=== PATIENT | female | born 1995 | race Caucasian/White ===

== ENCOUNTER 2018-11-27 16:24 | Outpatient (REF) | payer OTHER, SELFPAY ==
--- NOTE | 2018-11-27 16:00 | PAPFT_PTH ---
PATIENT: Valeria Hess LOC: [facility] U#:[id number] AGE/SX: 23/F ROOM: RE11/27/[address]: Nedra Bunn APRN : 1995 BED: DIS: 11/27/2018 SPEC #: [id number] RECD: 11/27/18 18:43 STATUS: COSME REQ #: [id number] RUPESH: 11/27/18 16:[address]: Nedra Bunn DEPT: [facility] Cytology RECD BY: Mary Puentes Tissues: 1 - CX/ENDOCX FOR PAP SMEARS Procedures: PAP THIN PREP/UVM Screening Comments: [id number]
== END 2018-11-27 16:44 ==
LOC: LBN 16:24
PROVIDERS: PCP Nurse Practitioner Adult Health; Visit Provider Nurse Practitioner Adult Health
DX: Z12.4 Encounter for screening for malignant neoplasm of cervix (principal)
CPT/HCPCS: 88142

== ENCOUNTER 2019-05-25 23:11 | Emergency (ER) | payer OTHER, SELFPAY ==
[2019-05-25 23:15] VITALS: BP 125/74; PULSE 72; RESP 18; TEMP 36.7; O2SAT 100
--- NOTE | 2019-05-25 23:26 | W.ED.GENAD ---
Discharge Plan Disposition Patient Disposition: HOME Condition: Stable Discharge Details Chief Complaint: RashLesion Clinical Impression: Eczema Primary Care Provider: Nedra Bunn ED Provider: Abiodun Pollack Home Meds and New Rx's Prescriptions: New prednisone 20 mg tablet 60 mg PO DAILY 5 Days Qty: 15 RF: 0 Continued diphenhydramine HCl [Benadryl] 25 mg Capsule 50 mg PO PRN PRNRF: 0 Discharge Instructions Instructions: Eczema (ED) Additional Instructions: follow up as scheduled with your radiology technician on Tuesday if you have difficulty breathing, swallowing or abdominal pain/vomit return to the emergency department Medical Decision Making 23 yo female with hx of eczema comes in with itching rash on arms similar to prior eczema flares. She states she bought a new ugly [id number] sweater and this started to cause swelling and itching of the arms and face. She took benadryl and it helped but her eczema of her hands and arms continues to itch and spread. She has no warm skin to suggest cellulitis, clear lungs, no gi symptoms and no difficulty swallowing so doubt anaphylaxis. Given increased symptoms despite benadryl will start her on prednisone and she has f/u with derm on Tuesday. Return precautions given Differential Diagnosis Differential Diagnosis: eczema, allergic reaction HPI General Mode of arrival: ambulatory. Date/Time Provider Initiated Documentation: 05/25/19 23:12. Limitations to Documentation: no limitations. Information obtained by: patient. History of Present Illness 23 year old F presents to the emergency department with the chief complaint of rash, described as moderate, Patient started experiencing this day(s) (3) No relieving factors improve symptom(s), No exacerbating factors reported . Related Data Home Medications Medication Instructions Recorded Confirmed diphenhydramine HCl [Benadryl] 50 mg PO PRN PRN 05/25/19 05/25/19 prednisone 60 mg PO DAILY 5 Days #15 tab 05/25/19 Previous Rx's Medication Instructions Recorded prednisone 60 mg PO DAILY 5 Days #15 tab 05/25/19 Allergies Allergy/AdvReac Type Severity Reaction Status Date / Time shellfish derived Allergy Throat Unverified 05/25/19 23:21 Swlling, Itching General Stated Complaint: RashLesion LIBRA: 4 Review of Systems All systems reviewed & are unremarkable except as noted in HPI and below Constitutional Constitutional: Denies chills, Denies fever(s) and Denies weakness Cardiovascular Cardiovascular: Denies chest pain and Denies dyspnea Respiratory Respiratory: Denies cough and Denies dyspnea Gastrointestinal Gastrointestinal: Denies abdominal pain, Denies nausea and Denies vomiting Musculoskeletal Musculoskeletal: Denies joint swelling Neurologic Neurologic: Denies weakness [facility] Social History Smoking/Tobacco Use Status: Never Alcohol Intake: current Alcohol Intake frequency: a few times a month Alcohol type: wine Drug use: Never Substance use type: does not use Adopted: No Foster care: No Household members: none Housing: apartment Number of Children: 0 Communication Needs: None Education Level: college Details: BS, nursing 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, [employer] Sexually active: Yes Do you think of yourself as: straight/heterosexual Current gender identity: female What type of physical activity do you participate in: none Bella/Shinto: Faith Seatbelt use: always Drive intox or ride w/intox dedicated local truck driver: No Working smoke detector in home: Yes Fire extinguisher in home: Yes Carbon monox detector in home: Yes Do you feel safe at home: Yes Do you feel safe in your relationship?: Yes Female Reproductive History Menstrual Age of Menarche: 12 control method: none Exam Const General: no acute distress Orientation: alert HENMT Head: normal to inspection Ears: external ears normal General nose exam: external nose normal Mouth: moist mucous membranes Eyes General: appearance normal, both eyes and all related structures Neck Neck: normal visual inspection Resp Effort & Inspection: normal respiratory effort and able to speak in complete sentences Cardio Rate: regular rate Neuro General: alert and oriented x3 Extrem General: normal to inspection Psych Mental Status: mental status grossly normal Course Vital Signs Vital signs: Vital Signs Temperature 36.7 C 05/25/19 23:15 Pulse 72 05/25/19 23:15 Respiratory Rate 18 05/25/19 23:15 Blood Pressure 125/74 05/25/19 23:15 Pulse Oximetry 100 05/25/19 23:15 Temperature 36.7 C 05/25/19 23:15 Temperature Source Skin 05/25/19 23:15 Pulse 72 05/25/19 23:15 Respiratory Rate 18 05/25/19 23:15 Respiratory Effort Non-Labored 05/25/19 23:23 Blood Pressure 125/74 05/25/19 23:15 Pulse Oximetry 100 05/25/19 23:15 Oxygen Delivery Method Room Air 05/25/19 23:15 Oxygen Flow Rate 0 05/25/19 23:15 Pain Level 5 05/25/19 23:15
[2019-05-25] MEDS: predniSONE 20 MG TAB 60 MG PO (23:32)
== END 2019-05-25 23:35 | disposition home or self-care (01) ==
LOC: ER 23:30
PROVIDERS: Emergency Provider Emergency Medicine; PCP Nurse Practitioner Adult Health
DX: L25.9 Unspecified contact dermatitis, unspecified cause (principal)
CPT/HCPCS: 99283; J7512

== ENCOUNTER 2019-06-28 15:33 | Outpatient (CLI) | payer OTHER, SELFPAY ==
[2019-06-28 16:46] LABS: TSH (W/Ref FT4) 1.76 uIU/mL (0.36-3.74)
== END 2019-06-28 15:53 ==
PROVIDERS: PCP Nurse Practitioner Adult Health; Visit Provider Nurse Practitioner Adult Health
DX: F41.9 Anxiety disorder, unspecified (principal)
CPT/HCPCS: 36415; 84443

== ENCOUNTER 2019-12-27 01:02 | Emergency (ER) | payer OTHER, SELFPAY ==
[2019-12-27 01:10] VITALS: BP 121/72; PULSE 79; RESP 16; TEMP 36.6; O2SAT 99
--- NOTE | 2019-12-27 01:13 | ED.GENADUL_ITS ---
Discharge Plan Disposition Patient Disposition: HOME Condition: Good Discharge Details Chief Complaint: Nausea/Vomit/Diar Clinical Impression: Excessive vomiting during , Acute hypokalemia, Transaminitis Primary Care Provider: Nedra Bunn ED Provider: Sd [place] Home Meds and New Rx's Prescriptions: Continued prenat.vits,clarence,[id number] Tablet 1 tab PO DAILY RF: 0 hydroxyzine HCl 50 mg tablet 50 mg PO QHS Qty: 30 RF: 1 metoclopramide HCl [Reglan] 10 mg tablet 10 mg PO Q6H PRN (Reason: nausea and vomiting) Qty: 30 RF: 2 ondansetron 8 mg tablet,disintegrating 8 mg PO TID Qty: 24 RF: 5 promethazine 25 mg suppository 25 mg SD Q6H PRN (Reason: nausea and vomiting) Qty: 12 RF: 2 Discharge Instructions Instructions: Hyperemesis Gravidarum (ED), Hypokalemia (ED) Additional Instructions: At this time you have been rehydrated with 2 L of normal saline. Your potassium levels were low, at home please eat foods that are high in potassium like bananas and legumes. Please take the supplemental potassium as tolerable for the next 2 to 3 days. Your liver levels were elevated which is not totally normal. This is slightly concerning and does need to be followed up promptly. Please follow-up with Dr. [facility] in the [facility] at [facility] by his request. Please continue to take the Zofran as needed for nausea. Drink plenty of fluids. If you notice any worsening of your symptoms, or any new symptoms such as vomiting, diarrhea, fever, chills, shortness of breath, chest pain, numbness, weakness, or fainting , please return immediately to the emergency department for reevaluation. Please follow up with your primary care provider as soon as possible for reassessment and reevaluation. As always, it was a pleasure participating in your medical care today. Referrals: Mal Ramos MD [ [facility] STAFF PHYSICIAN] - Medical Decision Making 24-year-old female who is a G1, P0 currently 9 weeks presents today for evaluation of vomiting. Patient states that she has been vomiting throughout the day, she has been taking small sips of water every 15 minutes and taking Zofran and Reglan that was prescribed by her senior product development scientist. However in spite of this she is continued to have vomiting. Urine is notably dark. She denies any cramps or abdominal pain. She denies any vaginal discharge or discomfort. She has no other complaints at this time. She denies any other sick contacts, right upper quadrant pain, or other complaints. Physical exam demonstrates a nontender nonsurgical abdomen. Mucous membranes are dry. Signs and symptoms consistent with hyperemesis gravidarum. Did discuss risks and benefits of Zofran usage during this stage of , patient would like to proceed with continued Zofran use. We will rehydrate the patient with normal saline, evaluate for any significant electrolyte abnormality, monitor closely and reassess. 3:30 AM Patient's laboratory work-up has returned, white count normal, potassium slightly low at 3, renal function good. Of note patient's AST and ALT are elevated with mild transaminitis. We have sent an acute hepatitis panel. Lipase normal, urinalysis does show protein, ketones, moderate bilirubin. Patient does not seem to be of the current obstetrics duration group for help syndrome or eclampsia. Blood pressure notably normal, no blood cell abnormalities to speak of on labs. Patient is feeling much better after 2 L of normal saline and Zofran. Will do a p.o. trial. I did contact Dr. Ramos of OB, discussed the case with him in regards to the patient's transaminitis. He to feels that is slightly atypical, though the patient is notably nontoxic- appearing. At this time he does recommend close follow-up in the clinic later today. Do think this is reasonable. After p.o. trial if she succeeds with this will discharge home with close follow-up with Dr. Ramos in the a.m. 3:50 a.m. Patient tolerated p.o. trial very well. Will discharge home. Decided not to do oral potassium and stick with mainly a diet of foods high in potassium secondary to the irritation of the stomach that the oral potassium may cause. I have ex tensively reviewed the treatment plan and discharge instructions with the patient. I have addressed all patient concerns at this time. The patient was made aware of what symptoms to monitor for that would warrant a return to the emergency department. Discussed the plan with the patient, they demonstrate verbal understanding and agreement with our assessment and plan at this time. HPI General Date/Time Provider Initiated Documentation: 12/27/19 01:05 . HPI Narrative: 24-year-old female who is a G1, P0 currently 9 weeks presents today for evaluation of vomiting. Patient states that she has been vomiting throughout the day, she has been taking small sips of water every 15 minutes and taking Zofran and Reglan that was prescribed by her senior product development scientist. However in spite of this she is continued to have vomiting. Urine is notably dark. She denies any cramps or abdominal pain. She denies any vaginal discharge or discomfort. She has no other complaints at this time. She denies any other sick contacts, right upper quadrant pain, or other complaints. Related Data Home Medications Medication Instructions Recorded Confirmed hydroxyzine HCl 50 mg tablet 50 mg PO QHS #30 tab 11/27/19 12/27/19 prenat.vits,clarence,[id number] 1 tab PO DAILY 11/27/19 12/27/19 ondansetron 8 mg disintegrating 8 mg PO TID #24 tab 12/18/19 12/27/19 tablet metoclopramide HCl 10 mg tablet 10 mg PO Q6H PRN #30 tab 12/20/19 12/27/19 promethazine 25 mg rectal 25 mg SD Q6H PRN #12 each 12/26/19 12/27/19 suppository Previous Rx's Medication Instructions Recorded hydroxyzine HCl 50 mg tablet 50 mg PO QHS #30 tab 11/27/19 ondansetron 8 mg disintegrating 8 mg PO TID #24 tab 12/18/19 tablet metoclopramide HCl 10 mg tablet 10 mg PO Q6H PRN #30 tab 12/20/19 promethazine 25 mg rectal 25 mg SD Q6H PRN #12 each 12/26/19 suppository Allergies Allergy/AdvReac Type Severity Reaction Status Date / Time shellfish derived Allergy Throat Verified 12/20/19 10:14 Swlling, Itching diphenhydramine AdvReac Intermediate eczema Verified 12/20/19 10:14 [From Benadryl] acts up General LIBRA: 4 Review of Systems All systems reviewed & are unremarkable except as noted in HPI and below PFSH Medical History H/O eczema (Chronic) dishydrotic, periorbital Derm in [place] Sciatica (Resolved) Sleep disturbance (Acute) works night shifts Surgical History No significant past surgical history (Chronic) Family History Father , leukemia No problems noted. Mother Anxiety Arthritis Depression Hypertension Maternal Grandmother Arthritis Paternal Grandfather No problems noted. 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, [employer] Sexually active: Yes Do you think of yourself as: straight/heterosexual Current gender identity: female What type of physical activity do you participate in: none Bella/Faith: Jain Seatbelt use: always Drive intox or ride w/intox 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 3.ENT: Atraumatic external nose and ears. Dry MM. Neck: Symmetric, trachea midline, No thyromegaly. 4.CVS: +S1/S2, No murmurs or gallops. Peripheral pulses 2+ and equal in all extremities. Brisk capillary refill in all extremities. 5.RESP: Unlabored respiratory effort. Clear to auscultation bilaterally. No wheezes rales or rhonchi 6.GI: Soft, Nontender/Nondistended, No hepatosplenomegaly. No guarding or rebound. No pain at McBurney's point, negative Boo sign. 7.MSK: Normocephalic/Atraumatic, Extremities w/o deformity or ttp No cyanosis or clubbing, Normal movement of all extremities 8.Skin: Warm, Dry. No rashes or lesions. 9.Neuro: conventions assistant II-XII grossly intact. Sensation grossly intact, no focal neurologic deficits. 10.Psych: (AAO) x3. Appropriate mood and affect
[2019-12-27] MEDS: Ondansetron 4 MG/2 ML VIAL IVP (01:34)
[2019-12-27] MEDS: Normal Saline 1,000 ML 1000 ML IV ×2 (01:35→01:55)
[2019-12-27 01:36] LABS: Abs Immature Grans 0.01 k/cumm (0.0-0.09); Absolute Basophil Count 0.01 k/cumm (0.0-0.2); Absolute Eosinophil Count 0.05 k/cumm (0.0-0.7); Absolute Lymphocyte Count 2.07 k/cumm (1.2-3.4); Absolute Monocyte Count 0.75 k/cumm (0.11-0.7); Absolute Neutrophil Count 6.33 k/cumm (1.2-6.7); Basophils % 0.1; Eosinophils % 0.5; HCT 43.1 % (36.0-46.0); HGB 14.6 g/dL (12.0-15.5); Immature Grans % 0.1 %; Lymphocytes % 22.5; Mean Corp. HGB Concentration 33.9 g/dL (32.0-36.0); Mean Corpuscular Hemoglobin 28.2 pg (27.0-33.0); Mean Corpuscular Volume 83.4 fL (80-95); Mean Platelet Volume 10.3 fL (8.0-11.0); Monocytes % 8.1; Neutrophils % 68.7; Platelet Count 297 x1000/uL (130-400); RBC 5.17 m/cumm (4.00-5.20); RBC Distribution Width 13.2 % (11.7-14.6); White Blood Cell Count 9.22 k/cumm (4.4-10.8)
[2019-12-27 01:49] LABS: ALT 186 U/L (14-59); AST 66 U/L (15-37); Albumin 3.7 g/dL (3.4-5.0); Alkaline Phosphatase 52 U/L (46-116); Anion Gap 13.9 mmol/L (3-11); BUN 7 mg/dL (7-18); CO2 22.1 mmol/L (21.0-32.0); Calcium 8.9 mg/dL (8.5-10.1); Chloride 100 mmol/L (98-107); Glucose 92 mg/dL (74-106); Lipase 189 U/L (73-393); Sodium 136 mmol/L (136-145); Total Protein 7.5 g/dL (6.4-8.2)
[2019-12-27] MEDS: POTASSIUM CHLORIDE 20 MEQ/100 ML BAG 50 MEQ IVPB (02:19)
[2019-12-27 02:24] LABS: Bilirubin Moderate (Negative); Blood Trace-intact (Negative); Clarity Cloudy (Clear); Glucose Negative (Negative); Ketones >=160 mg/dL (Negative); Leukocyte Esterase Negative (Negative); Nitrite Negative (Negative); Specific Gravity >= 1.030 (1.005-1.025)
[2019-12-27 02:29] LABS: Bacteria Many HPF (Negative); C & S Indicated? No/Sq. Contamination; Casts Negative LPF (Negative); Crystals Negative HPF (Negative); Epithelial Cells Many HPF (Negative); Mucus Negative (Negative); RBC 0-2 HPF (0-2); WBC Negative HPF (0-5)
--- NOTE | 2019-12-27 03:14 | NUR.NOTE ---
Nursing Note: [facility]
[2019-12-27 03:53] VITALS: BP 112/61; PULSE 76; RESP 16; O2SAT 98
[2019-12-28 09:32] LABS: Hepatitis A Antibody IgM Negative (Negative); Hepatitis B Core Antibody Negative (Negative); Hepatitis B surface Ag Negative (Negative); Hepatitis C Ab w Rflx HCV PCR Negative (Negative)
== END 2019-12-27 05:31 | disposition home or self-care (01) ==
PROVIDERS: Emergency Provider Student in an Organized Health Care Education/Training Program; PCP Nurse Practitioner Adult Health
DX: O21.1 Hyperemesis gravidarum with metabolic disturbance (principal); O26.611 Liver and biliary tract disorders in pregnancy, first trimester; R74.0 Nonspecific elevation of levels of transaminase and lactic acid dehydrogenase [LDH]; E87.6 Hypokalemia; Z3A.09 9 weeks gestation of pregnancy
CPT/HCPCS: 36415; 80053; 83690; 86704; 86709; 86803; 87340; 96361; 96365; 96366; 96375; 99284; 81003; 81015; 85025; J2405; J3480

== ENCOUNTER 2019-12-27 14:04 | Observation (INO) | payer OTHER, SELFPAY ==
[2019-12-27 14:49] LABS: Abs Immature Grans 0.02 k/cumm (0.0-0.09); Absolute Basophil Count 0.01 k/cumm (0.0-0.2); Absolute Eosinophil Count 0.01 k/cumm (0.0-0.7); Absolute Lymphocyte Count 1.49 k/cumm (1.2-3.4); Absolute Monocyte Count 0.57 k/cumm (0.11-0.7); Absolute Neutrophil Count 6.98 k/cumm (1.2-6.7); Basophils % 0.1; Eosinophils % 0.1; HCT 40.9 % (36.0-46.0); HGB 13.6 g/dL (12.0-15.5); Immature Grans % 0.2 %; Lymphocytes % 16.4; Mean Corp. HGB Concentration 33.3 g/dL (32.0-36.0); Mean Corpuscular Volume 84.2 fL (80-95); Mean Platelet Volume 10.6 fL (8.0-11.0); Monocytes % 6.3; Neutrophils % 76.9; Platelet Count 247 x1000/uL (130-400); RBC 4.86 m/cumm (4.00-5.20); White Blood Cell Count 9.08 k/cumm (4.4-10.8)
[2019-12-27] MEDS: DEXTROSE 5%-LACTATED RINGERS 1,000 ML 999 ML IV (15:00)
--- NOTE | 2019-12-27 15:02 | W.PM.HP.N ---
Date of service: 12/27/19 Time of Service: 15:02 Assessment and Plan Assessment and plan (1) Hyperemesis gravidarum: Status: Acute (2) Elevated liver enzymes: Status: Acute (3) Hypokalemia: Status: Acute Assessment and plan: Will place on observation on FBC and arrange for IV rehydration with D5LR. Will repeat laboratory studies today. IV antiemetics with phenergan and zofran. If improved this afternoon will consider discharge home. History of Present Illness History of Present Illness Chief Complaint: Hyperemesis gravidarum Narrative: 24 y/o at 9 weeks presented to the clinic following evaluation in the emergency department last evening for persistent nausea and vomiting with inability to tolerate PO. She was found to be hypokalemic and had mildly elevated liver enzymes. 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, [employer] Sexually active: Yes Do you think of yourself as: straight/heterosexual Current gender identity: female What type of physical activity do you participate in: none Bella/Episcopal: Roman Catholic Seatbelt use: always Drive intox or ride w/intox car pick up driver: No Working smoke detector in home: Yes Fire extinguisher in home: Yes Carbon monox detector in home: Yes Do you feel safe at home: Yes Do you feel safe in your relationship?: Yes Female Reproductive History Menstrual Age of Menarche: 12 control method: none Meds Home Medications and Allergies Home Medications Medication Instructions Recorded Confirmed Type hydroxyzine HCl 50 mg tablet 50 mg PO QHS #30 tab 11/27/19 12/27/19 Rx prenat.vits,clarence,[id number] 1 tab PO DAILY 11/27/19 12/27/19 History ondansetron 8 mg disintegrating 8 mg PO TID #24 tab 12/18/19 12/27/19 Rx tablet promethazine 25 mg rectal 25 mg DE Q6H PRN #12 each 12/26/19 12/27/19 Rx suppository Allergies Allergy/AdvReac Type Severity Reaction Status Date / Time shellfish derived Allergy Throat Verified 12/20/19 10:14 Swlling, Itching diphenhydramine AdvReac Intermediate eczema Verified 12/20/19 10:14 [From Benadryl] acts up cocamidopropyl betaine AdvReac Skin Rash Verified 12/27/19 13:45 Results Labs Result diagrams: 12/27/19 14:36 12/27/19 14:36 Labs: Laboratory Results - last 24 hr 12/27/19 14:36 WBC 9.08 RBC 4.86 Hgb 13.6 Hct 40.9 MCV 84.2 MCH 28.0 MCHC 33.3 RDW 13.0 Plt Count 247 MPV 10.6 Immature Gran % 0.2 Neutrophils % 76.9 Lymphocytes % 16.4 Monocytes % 6.3 Eosinophils % 0.1 Basophils % 0.1 Absolute Neutrophils 6.98 H Absolute Lymphocytes 1.49 Absolute Monocytes 0.57 Absolute Eosinophils 0.01 Absolute Basophils 0.01 COVID-19 Screening Have you,or household,traveled outside [place] in last 14 days?: No
[2019-12-27] MEDS: DEXTROSE 5%-LACTATED RINGERS 1,000 ML 150 ML IV ×2 (15:28→23:03)
[2019-12-27] MEDS: Ondansetron 4 MG/2 ML VIAL IVP ×2 (15:28→20:30)
[2019-12-27] MEDS: Normal Saline Flush 10 ML SYR IVP ×3 (15:28→20:31)
[2019-12-27 15:40] LABS: ALT 146 U/L (14-59); AST 49 U/L (15-37); Albumin 3.2 g/dL (3.4-5.0); Alkaline Phosphatase 44 U/L (46-116); Anion Gap 13.9 mmol/L (3-11); BUN 4 mg/dL (7-18); Bilirubin, Total 0.8 mg/dL (0.2-1.0); CO2 19.1 mmol/L (21.0-32.0); CREATININE 0.63 mg/dL (0.55-1.02); Calcium 8.4 mg/dL (8.5-10.1); Chloride 102 mmol/L (98-107); Glucose 83 mg/dL (74-106); Potassium 3.4 mmol/L (3.5-5.1); Sodium 135 mmol/L (136-145); Total Protein 6.5 g/dL (6.4-8.2)
[2019-12-27] MEDS: Dexamethasone 4 MG/ML VIAL 8 MG IVP (18:52)
[2019-12-28] MEDS: Normal Saline Flush 10 ML SYR IVP ×3 (03:24→20:51)
[2019-12-28] MEDS: Ondansetron 4 MG/2 ML VIAL IVP ×2 (03:24→20:50)
[2019-12-28 07:49] LABS: Abs Immature Grans 0.01 k/cumm (0.0-0.09); Absolute Lymphocyte Count 1.17 k/cumm (1.2-3.4); Absolute Monocyte Count 0.52 k/cumm (0.11-0.7); Absolute Neutrophil Count 8.05 k/cumm (1.2-6.7); HCT 37.3 % (36.0-46.0); HGB 12.5 g/dL (12.0-15.5); Immature Grans % 0.1 %; Mean Corp. HGB Concentration 33.5 g/dL (32.0-36.0); Mean Corpuscular Hemoglobin 28.2 pg (27.0-33.0); Mean Platelet Volume 10.3 fL (8.0-11.0); Monocytes % 5.3; Neutrophils % 82.6; Platelet Count 252 x1000/uL (130-400); RBC 4.44 m/cumm (4.00-5.20); RBC Distribution Width 13.1 % (11.7-14.6); White Blood Cell Count 9.75 k/cumm (4.4-10.8)
[2019-12-28 08:08] LABS: ALT 127 U/L (14-59); AST 41 U/L (15-37); Albumin 2.8 g/dL (3.4-5.0); Alkaline Phosphatase 41 U/L (46-116); Anion Gap 10.4 mmol/L (3-11); BUN 2 mg/dL (7-18); Bilirubin, Total 0.6 mg/dL (0.2-1.0); CO2 22.6 mmol/L (21.0-32.0); CREATININE 0.64 mg/dL (0.55-1.02); Calcium 8.5 mg/dL (8.5-10.1); Chloride 104 mmol/L (98-107); Glucose 128 mg/dL (74-106); Potassium 3.5 mmol/L (3.5-5.1); Sodium 137 mmol/L (136-145)
[2019-12-28] MEDS: Pantoprazole 40 MG VIAL IVP (11:12)
[2019-12-28] MEDS: DEXTROSE 5%-LACTATED RINGERS 1,000 ML 150 ML IV ×2 (12:09→19:03)
[2019-12-28 15:50] VITALS: BP 107/70; PULSE 66; RESP 16; TEMP 36.6; O2SAT 99
[2019-12-28] MEDS: MAGNESIUM SULFATE 8.12 MEQ, MULTIVITAMIN 10 ML, THIAMINE 100 MG, FOLIC ACID 1 MG in Nor... 168.867 MG IV (21:25)
[2019-12-28] MEDS: methylPREDNISolone SUCC 40 MG VIAL 16 MG IVP (22:09)
[2019-12-29] MEDS: methylPREDNISolone SUCC 40 MG VIAL 16 MG IVP ×3 (06:12→22:14)
[2019-12-29] MEDS: Normal Saline Flush 10 ML SYR IVP ×5 (07:32→22:15)
[2019-12-29 07:35] VITALS: BP 116/75; PULSE 71; RESP 20; TEMP 36.8; O2SAT 97
[2019-12-29 07:42] LABS: Abs Immature Grans 0.01 k/cumm (0.0-0.09); Absolute Lymphocyte Count 1.13 k/cumm (1.2-3.4); Absolute Monocyte Count 0.49 k/cumm (0.11-0.7); HCT 36.8 % (36.0-46.0); HGB 12.1 g/dL (12.0-15.5); Immature Grans % 0.1 %; Lymphocytes % 13.1; Mean Corp. HGB Concentration 32.9 g/dL (32.0-36.0); Mean Corpuscular Hemoglobin 27.9 pg (27.0-33.0); Mean Corpuscular Volume 84.8 fL (80-95); Mean Platelet Volume 10.2 fL (8.0-11.0); Monocytes % 5.7; Neutrophils % 81.1; Platelet Count 226 x1000/uL (130-400); RBC 4.34 m/cumm (4.00-5.20); RBC Distribution Width 13.2 % (11.7-14.6); White Blood Cell Count 8.63 k/cumm (4.4-10.8)
[2019-12-29] MEDS: Pantoprazole 40 MG VIAL IVP (08:14)
[2019-12-29 08:20] LABS: ALT 155 U/L (14-59); AST 78 U/L (15-37); Albumin 2.8 g/dL (3.4-5.0); Alkaline Phosphatase 41 U/L (46-116); Anion Gap 11.2 mmol/L (3-11); BUN 3 mg/dL (7-18); Bilirubin, Total 0.4 mg/dL (0.2-1.0); CO2 19.8 mmol/L (21.0-32.0); Calcium 8.1 mg/dL (8.5-10.1); Chloride 107 mmol/L (98-107); Folate 18.8 ng/mL (8.6-20.0); Glucose 122 mg/dL (74-106); Potassium 3.5 mmol/L (3.5-5.1); Sodium 138 mmol/L (136-145); Total Protein 5.9 g/dL (6.4-8.2); Vitamin B12 611 pg/mL (193-986)
[2019-12-29] MEDS: DEXTROSE 5%-LACTATED RINGERS 1,000 ML 150 ML IV ×2 (11:01→17:26)
[2019-12-29 11:33] LABS: COVID-19 RT-PCR UVMMC Result Negative (Negative)
[2019-12-29 15:15] VITALS: BP 118/75; PULSE 63; RESP 20; TEMP 36.7; O2SAT 98
[2019-12-29 17:25] LABS: Bilirubin Negative (Negative); Blood Trace-intact (Negative); Clarity Clear (Clear); Glucose Negative (Negative); Ketones Negative (Negative); Leukocyte Esterase Negative (Negative); Nitrite Negative (Negative); Specific Gravity 1.025 (1.005-1.025); Urobilinogen 0.2 EU/dL (Up TO 0.2); pH 7.5 (5-8)
[2019-12-29 17:32] LABS: Epithelial Cells Few HPF (Negative); RBC 0-2 HPF (0-2); WBC 0-2 HPF (0-5)
[2019-12-29 17:33] LABS: Bacteria Moderate HPF (Negative); C & S Indicated? Yes; Crystals Negative HPF (Negative); Mucus Trace (Negative)
[2019-12-29 20:05] VITALS: BP 116/75; PULSE 86; RESP 18; TEMP 36.6; O2SAT 97
[2019-12-30] MEDS: methylPREDNISolone SUCC 40 MG VIAL 16 MG IVP ×2 (06:19→14:06)
[2019-12-30] MEDS: Normal Saline Flush 10 ML SYR IVP ×4 (06:20→14:07)
[2019-12-30] MEDS: DEXTROSE 5%-LACTATED RINGERS 1,000 ML 150 ML IV (07:55)
[2019-12-30] MEDS: Pantoprazole 40 MG VIAL IVP (09:53)
[2019-12-30 10:22] LABS: ALT 128 U/L (14-59); AST 27 U/L (15-37); Albumin 3.2 g/dL (3.4-5.0); Alkaline Phosphatase 41 U/L (46-116); Anion Gap 8.7 mmol/L (3-11); BUN 3 mg/dL (7-18); Bilirubin, Total 0.3 mg/dL (0.2-1.0); CO2 23.3 mmol/L (21.0-32.0); CREATININE 0.65 mg/dL (0.55-1.02); Calcium 8.5 mg/dL (8.5-10.1); Chloride 105 mmol/L (98-107); Glucose 113 mg/dL (74-106); Potassium 3.7 mmol/L (3.5-5.1); Sodium 137 mmol/L (136-145); Total Protein 6.7 g/dL (6.4-8.2)
[2019-12-30] MEDS: Ondansetron 4 MG/2 ML VIAL IVP (11:38)
--- NOTE | 2019-12-30 13:55 | PGE_ITS ---
Date of Service Date of service: 12/30/19 Time of Service: 13:56 Assessment and Plan Assessment and plan (1) Hyperemesis gravidarum: Status: Acute Assessment and plan: Plan for discharge home with oral steroid taper. Follow up in the clinic in 2-3 days. Subjective Subjective Interval history since last seen: Patient did well over the last 24 hours with relation to her nausea and vomiting and responded well to solu-medrol. She has been able to tolerate meals over the last day and with the exception of some nausea and a single episode of emesis this morning. Objective Objective Clinical Data: Abnormal lab results 12/29/19 12/30/19 Range/Units 16:45 10:00 BUN 3 L (7-18) mg/dL Glucose 113 H (74-106) mg/dL ALT 128 H (14-59) U/L Alkaline Phosphatase 41 L (46-116) U/L Albumin 3.2 L (3.4-5.0) g/dL Urine Blood Trace-intact H (Negative) Vital Signs Temperature 97.9 F 12/29/19 20:05 Temperature Source Tympanic 12/29/19 20:05 Pulse 86 12/29/19 20:05 Pulse Rhythm Regular 12/29/19 20:57 Respiratory Rate 18 12/29/19 20:05 Respiratory Effort 12/29/19 20:57 Respiratory Depth Normal 12/29/19 20:57 Respiratory Pattern Normal 12/29/19 20:57 Blood Pressure 116/75 12/29/19 20:05 Pulse Oximetry 97 12/29/19 20:05 Oxygen Delivery Method Room Air 12/29/19 20:05 Oxygen Flow Rate 0 12/29/19 20:05 Pain Level 0 12/30/19 11:38 Comment 12/28/19 15:50 Intake & Output 12/29/19 12/30/19 12/30/19 23:59 11:59 23:59 Intake Total 962.5 / 1962.5 3676.5 / 3676.5 Output Total 2300 / 3300 5550 / 5550 Balance -1337.5 / -1337.5 -1873.5 / -1873.5 Intake: IV 962.5 / 1962.5 2676.5 / 2676.5 Oral 1000 / 1000 Output: Urine 2300 / 3300 5400 / 5400 Emesis 150 / 150 Other: Urine Color Pale Yellow Urine Appearance Clear Clear Urine Odor None None Emesis Description Clear/Water Voiding Methods Toilet Toilet Laboratory Results WBC 8.63 k/cumm (4.4-10.8) 12/29/19 07:30 RBC 4.34 m/cumm (4.00-5.20) 12/29/19 07:30 Hgb 12.1 g/dL (12.0-15.5) 12/29/19 07:30 Hct 36.8 % (36.0-46.0) 12/29/19 07:30 MCV 84.8 fL (80-95) 12/29/19 07:30 MCH 27.9 pg (27.0-33.0) 12/29/19 07:30 MCHC 32.9 g/dL (32.0-36.0) 12/29/19 07:30 RDW 13.2 % (11.7-14.6) 12/29/19 07:30 Plt Count 226 x1000/uL (130-400) 12/29/19 07:30 MPV 10.2 fL (8.0-11.0) 12/29/19 07:30 Immature Gran % 0.1 % 12/29/19 07: Neutrophils % 81.1 12/29/19 07:30 Lymphocytes % 13.1 12/29/19 07:30 Monocytes % 5.7 12/29/19 07:30 Eosinophils % 0.0 12/29/19 07:30 Basophils % 0.0 12/29/19 07:30 Absolute Neutrophils 7.00 k/cumm (1.2-6.7) H 12/29/19 07:30 Absolute Lymphocytes 1.13 k/cumm (1.2-3.4) L 12/29/19 07:30 Absolute Monocytes 0.49 k/cumm (0.11-0.7) 12/29/19 07:30 Absolute Eosinophils 0.00 k/cumm (0.0-0.7) 12/29/19 07:30 Absolute Basophils 0.00 k/cumm (0.0-0.2) 12/29/19 07:30 Sodium 137 mmol/L (136-145) 12/30/19 10:00 Potassium 3.7 mmol/L (3.5-5.1) 12/30/19 10:00 Chloride 105 mmol/L (98-107) 12/30/19 10:00 Carbon Dioxide 23.3 mmol/L (21.0-32.0) 12/30/19 10:00 Anion Gap 8.7 mmol/L (3-11) 12/30/19 10:00 BUN 3 mg/dL (7-18) L 12/30/19 10:00 Creatinine 0.65 mg/dL (0.55-1.02) 12/30/19 10:00 Estimated GFR/1.73 m2 >= 60.00 (mL/min/1.73m2) 12/30/19 10:00 Glucose 113 mg/dL (74-106) H 12/30/19 10:00 Calcium 8.5 mg/dL (8.5-10.1) 12/30/19 10:00 Total Bilirubin 0.3 mg/dL (0.2-1.0) 12/30/19 10:00 AST 27 U/L (15-37) 12/30/19 10:00 ALT 128 U/L (14-59) H 12/30/19 10:00 Alkaline Phosphatase 41 U/L (46-116) L 12/30/19 10:00 Total Protein 6.7 g/dL (6.4-8.2) 12/30/19 10:00 Albumin 3.2 g/dL (3.4-5.0) L 12/30/19 10:00 Vitamin B12 611 pg/mL (193-986) 12/29/19 07:30 Folate 18.8 ng/mL (8.6-20.0) 12/29/19 07:30 Urine Color Yellow (Yellow) 12/29/19 16:45 Urine Clarity Clear (Clear) 12/29/19 16:45 Urine pH 7.5 (5-8) 12/29/19 16:45 Ur Specific [place] 1.025 (1.005-1.025) 12/29/19 16:45 Urine Protein Negative mg/dL (Negative) 12/29/19 16:45 Urine Ketones Negative mg/dL (Negative) 12/29/19 16:45 Urine Blood Trace-intact (Negative) H 12/29/19 16:45 Urine Nitrite Negative (Negative) 12/29/19 16:45 Urine Bilirubin Negative (Negative) 12/29/19 16:45 Urine Urobilinogen 0.2 EU/dL (Up TO 0.2) 12/29/19 16:45 Ur Leukocyte Esterase Negative (Negative) 12/29/19 16:45 Urine RBC 0-2 HPF (0-2) 12/29/19 16:45 Urine WBC 0-2 HPF (0-5) 12/29/19 16:45 Ur Epithelial Cells Few HPF (Negative) 12/29/19 16:45 Urine Crystals Negative HPF (Negative) 12/29/19 16:45 Urine Bacteria Moderate HPF (Negative) 12/29/19 16:45 Urine Mucus Trace (Negative) 12/29/19 16:45 Ur Culture Indicated? Yes 12/29/19 16:45 Urine Glucose Negative mg/dL (Negative) 12/29/19 16:45 COVID-19 PCR Negative (Negative) 12/28/19 17:00 Nasopharyn COVID-19 PCR Not Applicable 12/28/19 17:00 Ref Test [facility] 12/28/19 17:00
[2019-12-31 11:37] LABS: Prealbumin 14 mg/dL (20-40); Transferrin 155 mg/dL (201-352)
== END 2019-12-30 14:55 | disposition home or self-care (01) ==
PROVIDERS: Admitting Provider Obstetrics & Gynecology; PCP Nurse Practitioner Adult Health; Visit Provider Obstetrics & Gynecology
DX: O21.0 Mild hyperemesis gravidarum (principal); R74.8 Abnormal levels of other serum enzymes; E87.6 Hypokalemia; Z3A.09 9 weeks gestation of pregnancy
CPT/HCPCS: 36410; 36415; 80053; 96360; 96361; 96365; 99223; 99233; U0003; 81003; 81015; 82607; 82746; 84134; 84466; 85025; 87086; G0378; J1100; J2405

== ENCOUNTER 2020-01-03 14:54 | Outpatient (RCR) | payer OTHER, SELFPAY ==
[2020-01-03 16:28] LABS: ALT 50 U/L (14-59); AST 13 U/L (15-37); Albumin 3.3 g/dL (3.4-5.0); Alkaline Phosphatase 33 U/L (46-116); Anion Gap 11.8 mmol/L (3-11); BUN 10 mg/dL (7-18); Bilirubin, Total 0.2 mg/dL (0.2-1.0); CO2 21.2 mmol/L (21.0-32.0); CREATININE 0.73 mg/dL (0.55-1.02); Calcium 8.6 mg/dL (8.5-10.1); Chloride 101 mmol/L (98-107); Glucose 132 mg/dL (74-106); Potassium 3.6 mmol/L (3.5-5.1); Sodium 134 mmol/L (136-145); Total Protein 6.9 g/dL (6.4-8.2)
== END 2020-01-04 23:59 | disposition home or self-care (01) ==
LOC: INF 14:54
PROVIDERS: PCP Nurse Practitioner Adult Health; Visit Provider Obstetrics & Gynecology
DX: Z45.2 Encounter for adjustment and management of vascular access device (principal)
CPT/HCPCS: 80053

== ENCOUNTER 2020-01-08 11:58 | Outpatient (RCR) | payer OTHER, SELFPAY | END 2020-02-04 23:59 | disposition home or self-care (01) | LOC: INF 11:58 | PROVIDERS: PCP Nurse Practitioner Adult Health; Visit Provider Obstetrics & Gynecology | DX: Z34.91 Encounter for supervision of normal pregnancy, unspecified, first trimester (principal); Z45.2 Encounter for adjustment and management of vascular access device; Z3A.11 11 weeks gestation of pregnancy | CPT/HCPCS: 36592 ==

== ENCOUNTER 2020-01-08 12:20 | Outpatient (REF) | payer OTHER, SELFPAY ==
[2020-01-08 13:02] LABS: Abs Immature Grans 0.05 10^3/uL (0.0-0.06); Absolute Basophil Count 0.02 10^3/uL (0.0-0.2); Basophils % 0.1; Eosinophils % 0.7; HCT 38.1 % (36.0-46.0); HGB 12.3 g/dL (11.2-15.7); Immature Grans % 0.3; Lymphocytes % 17.1; MCH 27.9 pg (27.0-33.0); MCHC 32.3 % (32.0-36.0); MCV 86.4 fL (80-95); MPV 10.6 fL (8.0-11.0); Monocytes % 6.6; Neutrophils % 75.2; Nucleated RBC 0 %; Platelet Count 258 10^3/uL (130-400); RBC 4.41 10^6/uL (3.93-5.22); RDW 13.2 % (11.7-14.6); RDW-SD 41.5 fL; WBC 15.22 10^3/uL (4.4-10.8)
[2020-01-08 13:03] LABS: Absolute Eosinophil Count 0.11 10^3/uL (0.0-0.7); Absolute Neutrophil Count 11.45 10^3/uL (1.2-6.7)
[2020-01-08 13:04] LABS: ALT 27 U/L (14-59); AST 10 U/L (15-37); Albumin 3.2 g/dL (3.4-5.0); Alkaline Phosphatase 27 U/L (46-116); Anion Gap 9.2 mmol/L (3-11); BUN 7 mg/dL (7-18); Bilirubin, Total 0.2 mg/dL (0.2-1.0); CO2 22.8 mmol/L (21.0-32.0); CREATININE 0.54 mg/dL (0.55-1.02); Calcium 8.5 mg/dL (8.5-10.1); Chloride 103 mmol/L (98-107); Glucose 96 mg/dL (74-106); Potassium 3.6 mmol/L (3.5-5.1); Sodium 135 mmol/L (136-145); Total Protein 6.7 g/dL (6.4-8.2)
[2020-01-08 13:35] LABS: *AMPHETAMINES SCREEN URINE Negative (Negative); *BARBITURATES SCREEN URINE POSITIVE (Negative); *BENZODIAZEPINES SCREEN URINE Negative (Negative); Cannabinoids THC Negative (Negative); Cocaine Screen,Urine Negative (Negative); METHADONE URINE SCREEN Negative (Negative); OPIATES URINE SCREEN Negative (Negative)
[2020-01-08 13:36] LABS: Tricyclic Antidepressants Negative (Negative)
[2020-01-08 14:03] LABS: TSH (W/Ref FT4) 0.96 uIU/mL (0.36-3.74)
[2020-01-09 09:26] LABS: Hepatitis B Surface Ag Negative (Negative)
[2020-01-09 10:01] LABS: Hepatitis C Ab w Rflx HCV PCR Negative (Negative)
[2020-01-09 10:19] LABS: HIV-1/2 Ag & Ab Screen Negative (Negative)
[2020-01-09 12:36] LABS: Varicella IgG Antibody Positive (See Note)
[2020-01-09 12:41] LABS: Rubella IgG Ab (UVM) Positive (See Note)
[2020-01-10 13:08] LABS: Syphilis Total Ab w/Reflex Nonreactive (Nonreactive)
[2020-01-15 15:26] LABS: Buprenorphine Negative; Norbuprenorphine Negative
[2020-01-16 18:32] LABS: Specimen WB Whole Blood
[2020-01-16 18:37] LABS: Result Summary NEGATIVE; Specimen WB Whole Blood
== END 2020-01-08 12:40 ==
LOC: LBN 12:20
PROVIDERS: Obstetrics & Gynecology; PCP Nurse Practitioner Adult Health; Visit Provider Advanced Practice Midwife
DX: Z3A.11 11 weeks gestation of pregnancy; O21.0 Mild hyperemesis gravidarum; Z34.91 Encounter for supervision of normal pregnancy, unspecified, first trimester
CPT/HCPCS: 80053; 80307; 81329; 86787; 86803; 86850; 86900; 86901; 87340; 87389; 81220; 84443; 85025; 86762; 86780; 87086

== ENCOUNTER 2020-01-16 03:12 | Outpatient (CLI) | payer OTHER, SELFPAY ==
[2020-01-16 08:07] LABS: Glucose,1 Hr (Glucola) 112 mg/dL (80-140)
== END 2020-01-16 03:32 ==
PROVIDERS: Advanced Practice Midwife; PCP Nurse Practitioner Adult Health; Visit Provider Obstetrics & Gynecology
DX: Z68.31 Body mass index [BMI] 31.0-31.9, adult (principal)
CPT/HCPCS: 36415; 82950; 87491; 87591

== ENCOUNTER 2020-01-16 21:20 | Emergency (ER) | payer OTHER, SELFPAY ==
[2020-01-16 21:28] VITALS: BP 116/56; PULSE 74; RESP 16; TEMP 36.5; O2SAT 97
--- NOTE | 2020-01-16 21:28 | W.ED.GENAD ---
Discharge Plan Disposition Patient Disposition: HOME Condition: Good Discharge Details Chief Complaint: Nausea/Vomit/Diar Clinical Impression: Hyperemesis gravidarum, Acute dehydration Primary Care Provider: Nedra Bunn ED Provider: Sd Kearney Home Meds and New Rx's Prescriptions: Continued prenat.vits,clarence,spv-wtdm-ekivk Tablet 1 tab PO DAILY RF: 0 vdkovqufmw-aiioudmsaf-tla-cod [id number] mg capsule 1 cap PO Q4H PRNRF: 0 aspirin 81 mg tablet,delayed release (DR/EC) 81 mg PO DAILY Qty: 60 RF: 4 prednisone 5 mg tablet 5 mg PO DAILY Qty: 5 RF: 0 ondansetron 8 mg tablet,disintegrating 8 mg PO TID Qty: 24 RF: 5 promethazine 25 mg suppository 25 mg FL Q6H PRN (Reason: nausea and vomiting) Qty: 12 RF: 2 nonkmydptb-uuktklbuslvcf-rylg 50-325-40 mg capsule 1 cap PO Q6H PRN (Reason: pain) Qty: 10 RF: 0 prednisone 5 mg tablet See Rx Instructions .ROUTE .COMPLEX Qty: 37 RF: 2 pantoprazole [Protonix] 20 mg tablet,delayed release (DR/EC) 20 mg PO DAILY Qty: 60 RF: 2 Discharge Instructions Instructions: Hyperemesis Gravidarum (ED), Dehydration (ED) Additional Instructions: You have been rehydrated, continue to take your home Zofran as needed. Take small frequent sips of water. If you notice any worsening of your symptoms, or any new symptoms such as vomiting, diarrhea, fever, chills, shortness of breath, chest pain, numbness, weakness, or fainting , please return immediately to the emergency department for reevaluation. Please follow up with your obstetrics casing flusher as soon as possible for reassessment and reevaluation. As always, it was a pleasure participating in your medical care today. Referrals: Rosa Anderson DO [OSTEOPATHIC DOCTOR] - Kamla Hawkins MD [ [facility] STAFF PHYSICIAN] - Mal Ramos MD [ NON-[facility] STAFF PHYSICIAN] - Medical Decision Making This is a G1, P0 13 weaker who presents for nausea and vomiting. Received a call from Dr. Anderson stating that it been attempting to manage the patient on an outpatient basis with oral Zofran, and just finishing up the steroid taper for her nausea unfortunately she has continued to vomit and has been unable to keep anything down. She denies any significant abdominal pain, cramping, vaginal discharge. She denies any other complaints at this time. No prior abdominal surgeries. She has been taking Zofran at home but has not been able to keep it down. No other complaints at this time. Physical exam demonstrates dry mucous membranes, no abdominal pain or tenderness. Signs and symptoms are clinically consistent with hyperemesis gravidarum. Will rehydrate, evaluate for any significant electrolyte abnormality, monitor closely and reassess. 11:25 PM Patient's laboratory work-up has returned, no acute abnormalities, no signs of significant electrolyte abnormality. She does have mild white count I would attribute this to the steroids that she has been on. Renal function stable. Urinalysis shows no evidence of infection, ketones elevated, but correlate well clinically with her mild dehydration. No anion gap. Patient has been rehydrated with 2 L of normal saline she is feeling much better, nausea has resolved after Zofran, she is able to tolerate p.o. She feels well and would like to go home. Signs and symptoms clinically consistent with hyperemesis gravidarum, heart rate in the 140s. Patient will be discharged home with close follow-up. Discussed red flags which to return. I have extensively reviewed the treatment plan and discharge instructions with the patient. I have addressed all patient concerns at this time. The patient was made aware of what symptoms to monitor for that would warrant a return to the emergency department. Discussed the plan with the patient, they demonstrate verbal understanding and agreement with our assessment and plan at this time. HPI General Date/Time Provider Initiated Documentation: 01/16/20 21:21. HPI Narrative: This is a G1, P0 13 weaker who presents for nausea and vomiting. Received a call from Dr. Anderson stating that it been attempting to manage the patient on an outpatient basis with oral Zofran, and just finishing up the steroid taper for her nausea unfortunately she has continued to vomit and has been unable to keep anything down. She denies any significant abdominal pain, cramping, vaginal discharge. She denies any other complaints at this time. No prior abdominal surgeries. She has been taking Zofran at home but has not been able to keep it down. No other complaints at this time. Related Data Home Medications Medication Instructions Recorded Confirmed prenat.vits,clarence,zzf-iyei-sxfsf 1 tab PO DAILY 11/27/19 01/08/20 ondansetron 8 mg disintegrating 8 mg PO TID #24 tab 12/18/19 01/08/20 tablet promethazine 25 mg rectal 25 mg FL Q6H PRN #12 each 12/26/19 01/08/20 suppository pantoprazole [Protonix] 20 mg PO DAILY #60 tab 12/30/19 01/08/20 prednisone See Rx Instructions .ROUTE 12/30/19 01/08/20 .COMPLEX #37 tab cwjhnbqyop-gbipjgvhacldn-tpatmmln 1 cap PO Q6H PRN #10 cap 01/05/20 01/08/20 50 mg-325 mg-40 mg capsule aspirin 81 mg tablet,delayed 81 mg PO DAILY #60 tab 01/08/20 01/08/20 release butalbital 50 mg-acetaminophen 300 1 cap PO Q4H PRN 01/08/20 01/08/20 mg-caffeine 40 mg-codeine 30 mg cap prednisone 5 mg tablet 5 mg PO DAILY #5 tab 01/08/20 01/08/20 Previous Rx's Medication Instructions Recorded ondansetron 8 mg disintegrating 8 mg PO TID #24 tab 12/18/19 tablet promethazine 25 mg rectal 25 mg FL Q6H PRN #12 each 12/26/19 suppository pantoprazole [Protonix] 20 mg PO DAILY #60 tab 12/30/19 prednisone See Rx Instructions .ROUTE 12/30/19 .COMPLEX #37 tab jniuplgjxz-uvmjqwocoqoko-vuqvxsuk 1 cap PO Q6H PRN #10 cap 01/05/20 50 mg-325 mg-40 mg capsule aspirin 81 mg tablet,delayed 81 mg PO DAILY #60 tab 01/08/20 release prednisone 5 mg tablet 5 mg PO DAILY #5 tab 01/08/20 Allergies Allergy/AdvReac Type Severity Reaction Status Date / Time shellfish derived Allergy Throat Verified 01/16/20 21:25 Swlling, Itching diphenhydramine AdvReac Intermediate eczema Verified 01/16/20 21:25 [From Benadryl] acts up cocamidopropyl betaine AdvReac Skin Rash Verified 01/16/20 21:25 General Stated Complaint: Nausea/Vomit/Diar LIRBA: 3 Review of Systems All systems reviewed & are unremarkable except as noted in HPI and below PFSH Medical History H/O eczema (Chronic) dishydrotic, periorbital Derm in [place] CeraVe Sciatica (Resolved) Sleep disturbance (Acute) works night shifts Surgical History No significant past surgical history (Chronic) Family History Father , leukemia No problems noted. Mother Anxiety Arthritis Depression Hypertension Maternal Grandmother Arthritis Paternal Grandfather No problems noted. 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, [employer] Sexually active: Yes Do you think of yourself as: straight/heterosexual Current gender identity: female What type of physical activity do you participate in: none Bella/Mormon: Restorationism Seatbelt use: always Drive intox or ride w/intox bus driver school: No Working smoke detector in home: Yes Fire extinguisher in home: Yes Carbon monox detector in home: Yes Do you feel safe at home: Yes Do you feel safe in your relationship?: Yes Female Reproductive History Menstrual Age of Menarche: 12 control method: none History History 1 Para 0 Hx # Term Pregnancies 0 Multiple births 0 Hx # Pregnancies 0 Ectopic pregnancies 0 AB induced 0 Hx Number of Living Children 0 AB spontaneous 0 Exam Narrative Exam Narrative: 1.Const: Well-nourished, Well-developed, appearing stated age 2.Eyes: PERRL, no conjunctival injection, and symmetrical lids. 3.ENT: Atraumatic external nose and ears. Dry MM. Neck: Symmetric, trachea midline, No thyromegaly. 4.CVS: +S1/S2, No murmurs or gallops. Peripheral pulses 2+ and equal in all extremities. Brisk capillary refill in all extremities. 5.RESP: Unlabored respiratory effort. Clear to auscultation bilaterally. No wheezes rales or rhonchi 6.GI: Soft, Nontender/Nondistended, No hepatosplenomegaly. No guarding or rebound. No pain at McBurney's point, negative Boo sign. 7.MSK: Normocephalic/Atraumatic, Extremities w/o deformity or ttp No cyanosis or clubbing, Normal movement of all extremities 8.Skin: Warm, Dry. No rashes or lesions. 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 Sensation grossly intact, no focal neurologic deficits. 10.Psych: (AAO) x3. Appropriate mood and affect Course Vital Signs Vital signs: Respiratory Effort Non-Labored 01/16/20 21:26 Pain Level 2 01/16/20 21:23
[2020-01-16] MEDS: Normal Saline 1,000 ML 1000 ML IV ×2 (21:33→22:23)
[2020-01-16 21:41] LABS: Abs Immature Grans 0.06 10^3/uL (0.0-0.06); Absolute Basophil Count 0.02 10^3/uL (0.0-0.2); Absolute Monocyte Count 0.62 10^3/uL (0.1-0.8); Absolute Neutrophil Count 8.56 10^3/uL (1.2-6.7); Basophils % 0.2; Eosinophils % 0.4; HCT 42.1 % (36.0-46.0); HGB 13.7 g/dL (11.2-15.7); Immature Grans % 0.5; Lymphocytes % 18.4; MCH 28.3 pg (27.0-33.0); MCHC 32.5 % (32.0-36.0); MPV 9.1 fL (8.0-11.0); Monocytes % 5.4; Neutrophils % 75.1; Nucleated RBC 0 %; Platelet Count 282 10^3/uL (130-400); RBC 4.84 10^6/uL (3.93-5.22); RDW-SD 40.8 fL
[2020-01-16 21:43] LABS: Absolute Eosinophil Count 0.05 10^3/uL (0.0-0.7)
[2020-01-16 21:59] LABS: ALT 21 U/L (14-59); AST 12 U/L (15-37); Albumin 3.4 g/dL (3.4-5.0); Alkaline Phosphatase 33 U/L (46-116); Anion Gap 9.7 mmol/L (3-11); BUN 6 mg/dL (7-18); Bilirubin, Total 0.4 mg/dL (0.2-1.0); CO2 24.3 mmol/L (21.0-32.0); CREATININE 0.78 mg/dL (0.55-1.02); Chloride 101 mmol/L (98-107); Glucose 84 mg/dL (74-106); Lipase 150 U/L (73-393); Potassium 3.5 mmol/L (3.5-5.1); Sodium 135 mmol/L (136-145); Total Protein 7.5 g/dL (6.4-8.2)
[2020-01-16] MEDS: Ondansetron 4 MG/2 ML VIAL IVP (22:01)
--- NOTE | 2020-01-16 22:03 | NUR.NOTE ---
Nursing Note: Lights dimmed and warm blanket provided to patient for comfort. No further needs at this time.
[2020-01-16 23:10] LABS: Bilirubin Negative (Negative); Blood Negative (Negative); Clarity Clear (Clear); Glucose Negative (Negative); Ketones >=160 mg/dL (Negative); Leukocyte Esterase Negative (Negative); Nitrite Negative (Negative); Specific Gravity >= 1.030 (1.005-1.025); Urobilinogen 0.2 EU/dL (Up TO 0.2); pH 5.5 (5-8)
[2020-01-16 23:32] VITALS: BP 108/63; PULSE 74; RESP 16; O2SAT 98
== END 2020-01-16 23:40 | disposition home or self-care (01) ==
PROVIDERS: Emergency Provider Student in an Organized Health Care Education/Training Program; PCP Nurse Practitioner Adult Health
DX: O21.1 Hyperemesis gravidarum with metabolic disturbance (principal); E86.0 Dehydration; O99.711 Diseases of the skin and subcutaneous tissue complicating pregnancy, first trimester; L30.1 Dyshidrosis [pompholyx]; Z3A.13 13 weeks gestation of pregnancy
CPT/HCPCS: 36415; 80053; 83690; 96361; 96374; 99284; 81003; 85025; J2405

== ENCOUNTER 2020-01-28 02:47 | Outpatient (CLI) | payer OTHER, SELFPAY ==
[2020-01-28 10:04] LABS: Kit/Specimen SENT
== END 2020-01-28 03:07 ==
PROVIDERS: PCP Nurse Practitioner Adult Health; Visit Provider Advanced Practice Midwife
DX: Z34.01 Encounter for supervision of normal first pregnancy, first trimester (principal); Z36.89 Encounter for other specified antenatal screening
CPT/HCPCS: 36415

== ENCOUNTER 2020-02-06 19:31 | Emergency (ER) | payer OTHER, SELFPAY ==
[2020-02-06 19:40] VITALS: BP 130/72; PULSE 85; RESP 16; TEMP 35.5; O2SAT 98
[2020-02-06] MEDS: Lactated Ringers 1,000 ML 1000 ML IV (19:56)
[2020-02-06 20:07] LABS: Abs Immature Grans 0.02 10^3/uL (0.0-0.06); Absolute Basophil Count 0.01 10^3/uL (0.0-0.2); Absolute Eosinophil Count 0.03 10^3/uL (0.0-0.7); Absolute Lymphocyte Count 1.93 10^3/uL (1.2-3.4); Absolute Monocyte Count 0.64 10^3/uL (0.1-0.8); Absolute Neutrophil Count 6.97 10^3/uL (1.2-6.7); Basophils % 0.1; Eosinophils % 0.3; HCT 37.3 % (36.0-46.0); HGB 12.4 g/dL (11.2-15.7); Immature Grans % 0.2; Lymphocytes % 20.1; MCH 28.6 pg (27.0-33.0); MCHC 33.2 % (32.0-36.0); MCV 86.1 fL (80-95); MPV 9.3 fL (8.0-11.0); Monocytes % 6.7; Neutrophils % 72.6; Nucleated RBC 0 %; Platelet Count 253 10^3/uL (130-400); RBC 4.33 10^6/uL (3.93-5.22); RDW 13.2 % (11.7-14.6)
[2020-02-06 20:20] LABS: ALT 14 U/L (14-59); AST 10 U/L (15-37); Albumin 2.9 g/dL (3.4-5.0); Alkaline Phosphatase 31 U/L (46-116); Anion Gap 10.2 mmol/L (3-11); BUN 5 mg/dL (7-18); Bilirubin, Total 0.2 mg/dL (0.2-1.0); CO2 22.8 mmol/L (21.0-32.0); CREATININE 0.72 mg/dL (0.55-1.02); Calcium 8.8 mg/dL (8.5-10.1); Chloride 103 mmol/L (98-107); Glucose 110 mg/dL (74-106); Potassium 3.3 mmol/L (3.5-5.1); Sodium 136 mmol/L (136-145); Total Protein 6.6 g/dL (6.4-8.2)
--- NOTE | 2020-02-06 20:21 | ED.GENADUL_ITS ---
Discharge Plan Disposition Patient Disposition: HOME Discharge Details Clinical Impression: Nausea and vomiting during , Hypokalemia Primary Care Provider: Nedra Bunn ED Provider: Abiodun Pollack Home Meds and New Rx's Prescriptions: New pyridoxine (vitamin B6) 25 mg tablet 25 mg PO TID Qty: 60 RF: 0 Continued prenat.vits,clarence,izw-imok-cqtdn Tablet 1 tab PO DAILY RF: 0 aspirin 81 mg tablet,delayed release (DR/EC) 81 mg PO DAILY Qty: 60 RF: 4 ondansetron 8 mg tablet,disintegrating 8 mg PO TID Qty: 24 RF: 5 promethazine 25 mg suppository 25 mg IA Q6H PRN (Reason: nausea and vomiting) Qty: 12 RF: 2 No Action pantoprazole [Protonix] 20 mg tablet,delayed release (DR/EC) 20 mg PO DAILY Qty: 60 RF: 2 wtxqkxvmbs-qisqfuhapr-shw-cod 75-718-42-30 mg capsule 1 cap PO Q4H PRNRF: 0 Discharge Instructions Instructions: Nausea and Vomiting in (ED), Hypokalemia (ED) Additional Instructions: Please follow-up with your paint dipper. Call tomorrow. Be sure to discuss your medications. I have prescribed pyridoxine (vitamin B6) as an antiemetic that may help your nausea. Be sure to discuss this with your paint dipper. Please contact your primary care physician to arrange follow-up. Return to the ER for any worsening or new concerning symptoms. Referrals: Rosa Anderson DO [OSTEOPATHIC DOCTOR] - Discharge Data Discharge Date/Time-TO BE ENTERED AT DEPARTURE: 02/07/20 00:55 Medical Decision Making <Candido Lawrence MD - Last Filed: 03/01/20 13:40> 2000??24-year-old G1, P0 with history of hyperemesis gravidarum now at 15 weeks here with nausea and vomiting over the past 3 days. Not tolerating food or liquid. Patient did take Zofran prior to arrival. I will give IV fluid bolus and check labs for electrolyte abnormalities. Patient declines rectal Com pazine. 2199 --patient was given 1 L LR and then continued on D5 normal saline. She was given pyridoxine 50 mg. 2244 --labs reviewed and hypokalemia noted. Will give potassium chloride 20 mEq IV and 20 mEq p.o. UA noted. Patient does not have any urinary symptoms. 2315 --patient reassessed and is feeling better. Potassium infusing currently. I suspect she will be stable for discharge upon completion of potassium infusion. Care to be signed out to Dr. Pollack with plan to reassess patient for disposition. Lab Data Lab results reviewed: Yes I reviewed the patient's lab results. Labs: 02/06/20 22:10 Urine - Reflex from Ua Urine Culture - Pending Laboratory Tests Range/Units 02/06/20 02/06/20 02/06/20 19:55 19:55 22:10 WBC (4.4-10.8) 10^3/uL 9.60 RBC (3.93-5.22) 10^6/uL 4.33 Hgb (11.2-15.7) g/dL 12.4 Hct (36.0-46.0) % 37.3 MCV (80-95) fL 86.1 MCH (27.0-33.0) pg 28.6 MCHC (32.0-36.0) % 33.2 RDW (11.7-14.6) % 13.2 Plt Count (130-400) 10^3/uL 253 MPV (8.0-11.0) fL 9.3 Immature Gran % 0.2 Neutrophils % 72.6 Lymphocytes % 20.1 Monocytes % 6.7 Eosinophils % 0.3 Basophils % 0.1 Nucleated RBC % % 0 Absolute Neutrophils (1.2-6.7) 10^3/uL 6.97 H Absolute Lymphocytes (1.2-3.4) 10^3/uL 1.93 Absolute Monocytes (0.1-0.8) 10^3/uL 0.64 Absolute Eosinophils (0.0-0.7) 10^3/uL 0.03 Absolute Basophils (0.0-0.2) 10^3/uL 0.01 Sodium (136-145) mmol/L 136 Potassium (3.5-5.1) mmol/L 3.3 L Chloride (98-107) mmol/L 103 Carbon Dioxide (21.0-32.0) mmol/L 22.8 Anion Gap (3-11) mmol/L 10.2 BUN (7-18) mg/dL 5 L Creatinine (0.55-1.02) mg/dL 0.72 Estimated GFR/1.73 m2 (mL/min/1.73m2) >= 60.00 Glucose (74-106) mg/dL 110 H Calcium (8.5-10.1) mg/dL 8.8 Magnesium (1.8-2.4) mg/dL 2.0 Total Bilirubin (0.2-1.0) mg/dL 0.2 AST (15-37) U/L 10 L ALT (14-59) U/L 14 Alkaline Phosphatase (46-116) U/L 31 L Total Protein (6.4-8.2) g/dL 6.6 Albumin (3.4-5.0) g/dL 2.9 L Urine Color (Yellow) Yellow Urine Clarity (Clear) Clear Urine pH (5-8) 6.5 Ur Specific [place] (1.005-1.025) 1.015 Urine Protein (Negative) mg/dL Negative Urine Ketones (Negative) mg/dL 15 H Urine Blood (Negative) Negative Urine Nitrite (Negative) Negative Urine Bilirubin (Negative) Negative Urine Urobilinogen (Up TO 0.2) EU/dL 0.2 Ur Leukocyte Esterase (Negative) Trace H Urine RBC (0-2) HPF 0-2 Urine WBC (0-5) HPF 5-10 Ur Epithelial Cells (Negative) HPF Few Urine Crystals (Negative) HPF Negative Urine Bacteria (Negative) HPF Moderate Urine Casts (Negative) LPF Negative Urine Mucus (Negative) Negative Ur Culture Indicated? Yes Urine Glucose (Negative) mg/dL Negative <Abiodun Pollack MD - Last Filed: 02/07/20 00:30> pt had mild nausea after potassium oral and felt better with zofran ambulating and feels well enough for d/c, understands to f/u with obgyn and return precautions given HPI <Candido Lawrence MD - Last Filed: 03/01/20 13:40> General Mode of arrival: ambulatory . Date/Time Provider Initiated Documentation: 02/06/20 19:34 . Limitations to Documentation: no limitations . Information obtained by: patient . HPI Narrative: 24-year-old G1, P0 at 15 weeks here with severe nausea. Patient notes persistent nausea over the past 3 days. Associated vomiting with any attempt to eat or drink. Patient notes she vomited 6 times today. Vomit is nonbloody. She did take Zofran 8 mg approximately 4:00 today without significant relief. She denies abdominal pain. No vaginal discharge or bleeding. Of note, patient has had intermittent severe nausea and vomiting in the first trimester of the . She is required hospitalization to treat this. She has been on 2 steroid tapers which do seem to help her symptoms. She is not currently on steroids. Related Data Home Medications Medication Instructions Recorded Confirmed prenat.vits,clarence,nqc-pvns-qafwn 1 tab PO DAILY 11/27/19 02/06/20 ondansetron 8 mg disintegrating 8 mg PO TID #24 tab 12/18/19 02/06/20 tablet promethazine 25 mg rectal 25 mg IA Q6H PRN #12 each 12/26/19 02/06/20 suppository aspirin 81 mg tablet,delayed 81 mg PO DAILY #60 tab 01/08/20 02/06/20 release butalbital 50 mg-acetaminophen 300 1 cap PO Q4H PRN 01/08/20 02/06/20 mg-caffeine 40 mg-codeine 30 mg cap pyridoxine (vitamin B6) 25 mg PO TID #60 tab 02/06/20 pantoprazole 20 mg tablet,delayed 20 mg PO DAILY #60 tab 02/15/20 02/15/20 release Previous Rx's Medication Instructions Recorded ondansetron 8 mg disintegrating 8 mg PO TID #24 tab 12/18/19 tablet promethazine 25 mg rectal 25 mg IA Q6H PRN #12 each 12/26/19 suppository aspirin 81 mg tablet,delayed 81 mg PO DAILY #60 tab 01/08/20 release pyridoxine (vitamin B6) 25 mg PO TID #60 tab 02/06/20 pantoprazole 20 mg tablet,delayed 20 mg PO DAILY #60 tab 02/15/20 release Allergies Allergy/AdvReac Type Severity Reaction Status Date / Time shellfish derived Allergy Throat Verified 02/15/20 09:15 Swlling, Itching diphenhydramine AdvReac Intermediate eczema Verified 02/15/20 09:15 [From Benadryl] acts up cocamidopropyl betaine AdvReac Skin Rash Verified 02/15/20 09:15 General Stated Complaint: Nausea/Vomit/Diar LIBRA: 3 Review of Systems <Candido Lawrence, MD - Last Filed: 03/01/20 13:40> All systems reviewed & are unremarkable except as noted in HPI and below Constitutional Constitutional: Denies fever(s) Respiratory Respiratory: Denies cough Gastrointestinal Gastrointestinal: Reports as per HPI PFSH <Candido Lawrence MD - Last Filed: 03/01/20 13:40> Medical History (Updated 02/16/20 @ 00:00 by KITA BEAULIEU) H/O eczema dishydrotic, periorbital Derm in [place] CeraVe Sciatica Sleep disturbance works night shifts Surgical History No significant past surgical history Family History Father , leukemia No problems noted. Mother Anxiety Arthritis Depression Hypertension Maternal Grandmother Arthritis Paternal Grandfather No problems noted. 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, [employer] Sexually active: Yes Do you think of yourself as: straight/heterosexual Current gender identity: female What type of physical activity do you participate in: none Bella/Taoist: Sabianist Seatbelt use: always Drive intox or ride w/intox meals on wheels driver: No Working smoke detector in home: Yes Fire extinguisher in home: Yes Carbon monox detector in home: Yes Do you feel safe at home: Yes Do you feel safe in your relationship?: Yes Female Reproductive History Menstrual Age of Menarche: 12 control method: none History History 1 Para 0 Hx # Term Pregnancies 0 Multiple births 0 Hx # Pregnancies 0 Ectopic pregnancies 0 AB induced 0 Hx Number of Living Children 0 AB spontaneous 0 Exam <Candido Lawrence MD - Last Filed: 03/01/20 13:40> Const General: cooperative and no acute distress HENMT Head: normocephalic Mouth: mucous membranes dry Eyes Conjunctivae: normal conjunctivae Sclera: normal sclerae Resp Auscultation: clear to auscultation bilaterally, no rales, no rhonchi and no wheezes Cardio Jugular venous pressure: no JVD Rate: regular rate and not tachycardic Rhythm: regular rhythm GI Palpation: soft, not firm, no guarding, no masses, not rigid and nontender Skin General skin exam: no rashes or lesions noted Neuro General: patient alert, patient awake, patient oriented x3 and tone normal Extrem General: no edema Psych Appearance: grossly normal Mental Status: mental status grossly normal Course <Candido Lawrence MD - Last Filed: 03/01/20 13:40> Vital Signs Vital signs: Vital Signs Temperature 35.5 C L 02/06/20 19:40 Pulse 85 02/06/20 19:40 Respiratory Rate 16 02/06/20 19:40 Blood Pressure 130/72 02/06/20 19:40 Pulse Oximetry 98 02/06/20 19:40 Temperature 35.5 C L 02/06/20 19:40 Temperature Source Temporal Artery Scan 02/06/20 19:40 Pulse 85 02/06/20 19:40 Respiratory Rate 16 02/06/20 19:40 Respiratory Effort Non-Labored 02/06/20 20:04 Blood Pressure 130/72 02/06/20 19:40 Blood Pressure Position Sitting 02/06/20 19:40 Pulse Oximetry 98 02/06/20 19:40 Oxygen Delivery Method Room Air 02/06/20 19:40 Oxygen Flow Rate 0 02/06/20 19:40 Pain Level 2 02/06/20 19:40 Lab/Test Results Lab/Test Results: Laboratory Tests Range/Units 02/06/20 19:55 WBC (4.4-10.8) 10^3/uL 9.60 RBC (3.93-5.22) 10^6/uL 4.33 Hgb (11.2-15.7) g/dL 12.4 Hct (36.0-46.0) % 37.3 MCV (80-95) fL 86.1 MCH (27.0-33.0) pg 28.6 MCHC (32.0-36.0) % 33.2 RDW (11.7-14.6) % 13.2 Plt Count (130-400) 10^3/uL 253 MPV (8.0-11.0) fL 9.3 Immature Gran % 0.2 Neutrophils % 72.6 Lymphocytes % 20.1 Monocytes % 6.7 Eosinophils % 0.3 Basophils % 0.1 Nucleated RBC % % 0 Absolute Neutrophils (1.2-6.7) 10^3/uL 6.97 H Absolute Lymphocytes (1.2-3.4) 10^3/uL 1.93 Absolute Monocytes (0.1-0.8) 10^3/uL 0.64 Absolute Eosinophils (0.0-0.7) 10^3/uL 0.03 Absolute Basophils (0.0-0.2) 10^3/uL 0.01 Sign Out <Candido Lawrence MD - Last Filed: 03/01/20 13:40> Sign Out Data: Sign Out Comment: Care signed out to Dr. Pollack with plan to reassess patient for disposition after completion of potassium infusion. Last updated by Candido Lawrence MD at 02/06/20 23:28
--- NOTE | 2020-02-06 20:41 | NUR.NOTE ---
Nursing Note: IVF continues to infuse. No vomiting per patient, nausea is still present it's always there.
[2020-02-06] MEDS: DEXTROSE 5%-0.45% SALINE 1,000 ML 150 ML IV (21:13)
[2020-02-06 22:19] LABS: Bilirubin Negative (Negative); Blood Negative (Negative); Clarity Clear (Clear); Glucose Negative (Negative); Ketones 15 mg/dL (Negative); Leukocyte Esterase Trace (Negative); Nitrite Negative (Negative); Specific Gravity 1.015 (1.005-1.025); Urobilinogen 0.2 EU/dL (Up TO 0.2); pH 6.5 (5-8)
[2020-02-06 22:27] LABS: Bacteria Moderate HPF (Negative); C & S Indicated? Yes; Casts Negative LPF (Negative); Crystals Negative HPF (Negative); Epithelial Cells Few HPF (Negative); Mucus Negative (Negative); RBC 0-2 HPF (0-2)
[2020-02-06] MEDS: POTASSIUM CHLORIDE 20 MEQ/100 ML BAG 50 MEQ IVPB (23:16)
[2020-02-06] MEDS: Potassium Chloride 20 MEQ TABCR PO (23:16)
--- NOTE | 2020-02-06 23:38 | NUR.NOTE ---
Nursing Note: Patient resting comfortably on stretcher. Good relief from Oral medication for nausea. IV Potassium infusing with no difficulty. No needs at this time.
[2020-02-07 00:05] VITALS: BP 103/62; PULSE 74; RESP 14; O2SAT 99
[2020-02-07] MEDS: Ondansetron 4 MG/2 ML VIAL IVP (00:22)
[2020-02-07 00:56] VITALS: BP 110/76; PULSE 76; RESP 14; O2SAT 100
== END 2020-02-07 00:55 | disposition home or self-care (01) ==
PROVIDERS: Student in an Organized Health Care Education/Training Program; Emergency Provider Emergency Medicine; PCP Nurse Practitioner Adult Health
DX: O21.1 Hyperemesis gravidarum with metabolic disturbance (principal); Z3A.15 15 weeks gestation of pregnancy; E87.6 Hypokalemia
CPT/HCPCS: 36415; 80053; 96361; 96365; 96366; 96375; 99284; 81003; 81015; 83735; 85025; 87086; J2405; J3480

== ENCOUNTER 2020-02-29 04:10 | Outpatient (CLI) | payer OTHER, SELFPAY ==
--- NOTE | 2020-02-29 07:15 | DI.US_ITS ---
EXAM: US OB 2-3 TRIMESTER CLINICAL HISTORY: ,Z34.90. TECHNIQUE: Transabdominal obstetrical ultrasound performed. COMPARISON: No exams were available for comparison FINDINGS: Transabdominal obstetrical ultrasound performed. FINDINGS: Number of fetuses: One. position: Variable heart rate: 147 bpm. Placental location: Posterior. No evidence of previa. Uterus: Uterine fibroids are identified. The largest is in the posterior body and measures 5.7 x 3.8 x 5.1 cm. It lies posterior to the placenta. There is a fibroid seen in the anterior body of the u terus. BIOMETRIC DATA: Composite Age: 19 weeks EDC: 07/25/2020 Amniotic fluid index: Amount of fluid is within normal limits. ANATOMICAL SURVEY: Within normal limits. BPD: 4.1cm HC: 16.5cm AC: 14.5cm FL: 2.8cm Cisterna Magna: 5 mm Cerebellum: 1.9 cm IMPRESSION: 1. Single live intrauterine gestation as above. 2. Normal anatomic survey. 3. Uterine fibroids. DATA REPOSITORY:
== END 2020-02-29 04:30 ==
PROVIDERS: PCP Nurse Practitioner Adult Health; Visit Provider Obstetrics & Gynecology
DX: Z34.92 Encounter for supervision of normal pregnancy, unspecified, second trimester (principal); Z3A.19 19 weeks gestation of pregnancy; C25.9 Malignant neoplasm of pancreas, unspecified
CPT/HCPCS: 76805

== ENCOUNTER 2020-04-18 03:11 | Outpatient (CLI) | payer OTHER, SELFPAY ==
--- NOTE | 2020-04-18 06:45 | DI.US_ITS ---
EXAM: US OB JOHNNY WEIGHT CLINICAL HISTORY: Uterine fibroids in . Evaluate growth,z34.90. TECHNIQUE: Transabdominal obstetrical ultrasound performed. COMPARISON: US US OB 2-3 TRIMESTER from 02/29/2020 FINDINGS: Transabdominal obstetrical ultrasound performed. FINDINGS: Number of fetuses: One. position: Chapo breech. Placental location: Posterior. No evidence of previa. BIOMETRIC DATA: EFW: 982 grms 53% Composite Age: 26 weeks 4 days EDC: 07/21/2020 Heart Rate: 149BPM Amniotic fluid index: 18.7 cm. Visually, amount of fluid is within normal limits. IMPRESSION: 1. Single live intrauterine gestation as above. 2. Estimated weight is 982gms. 3. Amniotic fluid index is 18.7 cm. Visually within normal limits. DATA REPOSITORY:
== END 2020-04-18 03:31 ==
PROVIDERS: PCP Nurse Practitioner Adult Health; Visit Provider Obstetrics & Gynecology
DX: D25.9 Leiomyoma of uterus, unspecified (principal); Z34.92 Encounter for supervision of normal pregnancy, unspecified, second trimester; O34.12 Maternal care for benign tumor of corpus uteri, second trimester
CPT/HCPCS: 76816

== ENCOUNTER 2020-05-23 02:11 | Outpatient (CLI) | payer OTHER, SELFPAY ==
[2020-05-23 10:18] LABS: Abs Immature Grans 0.05 10^3/uL (0.0-0.06); Absolute Basophil Count 0.01 10^3/uL (0.0-0.2); Absolute Eosinophil Count 0.12 10^3/uL (0.0-0.7); Basophils % 0.1; Eosinophils % 1.1; HCT 33.8 % (36.0-46.0); HGB 10.9 g/dL (11.2-15.7); Immature Grans % 0.5; Lymphocytes % 16.1; MCH 28.2 pg (27.0-33.0); MCHC 32.2 % (32.0-36.0); MCV 87.3 fL (80-95); Monocytes % 5.5; Neutrophils % 76.7; Nucleated RBC 0 %; Platelet Count 215 10^3/uL (130-400); RBC 3.87 10^6/uL (3.93-5.22); RDW 12.4 % (11.7-14.6); RDW-SD 39.8 fL; WBC 10.84 10^3/uL (4.4-10.8)
[2020-05-23 10:20] LABS: Absolute Lymphocyte Count 1.75 10^3/uL (1.2-3.4); Absolute Neutrophil Count 8.31 10^3/uL (1.2-6.7)
[2020-05-23 10:23] LABS: Glucose,1 Hr (Glucola) 127 mg/dL (80-140)
== END 2020-05-23 02:31 ==
PROVIDERS: PCP Nurse Practitioner Adult Health; Visit Provider Obstetrics & Gynecology
DX: Z34.93 Encounter for supervision of normal pregnancy, unspecified, third trimester (principal)
CPT/HCPCS: 82950; 85025

== ENCOUNTER 2020-06-05 01:08 | Outpatient (CLI) | payer OTHER, SELFPAY ==
--- NOTE | 2020-06-05 06:30 | DI.US_ITS ---
EXAM: US OB JOHNNY WEIGHT CLINICAL HISTORY: growth,UTERINE FIBROIDS,HYPEREMESIS,D25.9. TECHNIQUE: Transabdominal obstetrical ultrasound was performed. COMPARISON: US US OB JOHNNY WEIGHT from 04/18/2020 FINDINGS: There is a single viable intrauterine gestation with cardiac activity identified-139 bpm The fetus is presently in cephalic position . Amniotic fluid: There is a normal amount of amniotic fluid with an JOHNNY of 17.3cm. Placental location: The placenta is posterior grade 2,with no evidence of placenta previa. Dating parameters place this at approximately 33 weeks and 6 days gestational age, implying KAVON of July 18, 2020. BPD measures 34 weeks and 1 day HC measures 34 weeks and 2 days AC measures 33 weeks and 5 days FL measures 33 weeks and 1 day Estimated weight is 2240 grams gm-4 pounds 15 ounces Fetus is at the 52 percentile on the Hadlock scale. IMPRESSION:: Single viable intrauterine 3rd trimester gestation as described above. DATA REPOSITORY:
== END 2020-06-05 01:28 ==
PROVIDERS: PCP Nurse Practitioner Adult Health; Visit Provider Obstetrics & Gynecology
DX: O21.0 Mild hyperemesis gravidarum; Z3A.33 33 weeks gestation of pregnancy; D25.9 Leiomyoma of uterus, unspecified
CPT/HCPCS: 76816

== ENCOUNTER 2020-06-30 13:08 | Outpatient (REF) | payer BC, SELFPAY ==
[2020-06-30 10:56] LABS: *AMPHETAMINES SCREEN URINE Negative (Negative); *BARBITURATES SCREEN URINE Negative (Negative); *BENZODIAZEPINES SCREEN URINE Negative (Negative); Cannabinoids THC Negative (Negative); Cocaine Screen,Urine Negative (Negative); METHADONE URINE SCREEN Negative (Negative); OPIATES URINE SCREEN Negative (Negative)
[2020-06-30 10:58] LABS: Tricyclic Antidepressants Negative (Negative)
[2020-07-05 00:13] LABS: Buprenorphine Negative; Norbuprenorphine Negative
== END 2020-06-30 13:28 ==
LOC: LBN 13:08
PROVIDERS: PCP Nurse Practitioner Adult Health; Visit Provider Obstetrics & Gynecology Gynecology
DX: Z34.93 Encounter for supervision of normal pregnancy, unspecified, third trimester (principal)
CPT/HCPCS: 80307; 87081

== ENCOUNTER 2020-07-04 14:17 | Outpatient (CLI) | payer BC, SELFPAY | END 2020-07-04 14:37 | PROVIDERS: PCP Nurse Practitioner Adult Health; Visit Provider Obstetrics & Gynecology | DX: Z53.9 Procedure and treatment not carried out, unspecified reason (principal) | CPT/HCPCS: E0602 ==

== ENCOUNTER 2020-07-07 15:15 | Outpatient (REF) | payer BC, SELFPAY | END 2020-07-07 15:35 | LOC: LBN 15:15 | PROVIDERS: PCP Nurse Practitioner Adult Health; Visit Provider Obstetrics & Gynecology | DX: Z34.93 Encounter for supervision of normal pregnancy, unspecified, third trimester (principal); Z3A.37 37 weeks gestation of pregnancy | CPT/HCPCS: 87081 ==

== ENCOUNTER 2020-07-10 18:52 | Observation (INO) | payer BC, SELFPAY ==
[2020-07-10 19:00] VITALS: BP 127/85; PULSE 83; RESP 18; TEMP 36.8; O2SAT 99
[2020-07-10 19:22] VITALS: BP 127/85; PULSE 83
[2020-07-10 20:10] LABS: Bilirubin Negative (Negative); Blood Negative (Negative); Clarity Clear (Clear); Glucose Negative (Negative); Ketones Negative (Negative); Leukocyte Esterase Negative (Negative); Nitrite Negative (Negative); Urobilinogen 0.2 EU/dL (Up TO 0.2)
== END 2020-07-10 20:42 | disposition home or self-care (01) ==
PROVIDERS: Admitting Provider Obstetrics & Gynecology; PCP Nurse Practitioner Adult Health; Visit Provider Obstetrics & Gynecology
DX: O47.1 False labor at or after 37 completed weeks of gestation (principal); Z3A.37 37 weeks gestation of pregnancy
CPT/HCPCS: 81003; G0378

== ENCOUNTER 2020-07-10 22:36 | Inpatient (IN) | payer BC, SELFPAY ==
[2020-07-10 22:50] VITALS: BP 128/67; PULSE 92; RESP 18; TEMP 36.8; O2SAT 98
[2020-07-10 23:00] VITALS: BP 128/67; PULSE 92; RESP 18; TEMP 36.8; O2SAT 98
[2020-07-10 23:12] LABS: HCT 34.3 % (36.0-46.0); HGB 10.9 g/dL (11.2-15.7); MCH 26.6 pg (27.0-33.0); MCHC 31.8 % (32.0-36.0); MCV 83.7 fL (80-95); MPV 10.2 fL (8.0-11.0); Platelet Count 209 10^3/uL (130-400); RDW 13.9 % (11.7-14.6); RDW-SD 40.6 fL; WBC 13.19 10^3/uL (4.4-10.8)
--- NOTE | 2020-07-10 23:21 | HPE_ITS ---
Date of service: 07/10/20 Time of Service: 23:21 Assessment and Plan Assessment and plan (1) SROM (spontaneous rupture of membranes): Status: Acute Assessment and plan: SSROM at 2230. Early labor. Risk for PPH increased due to fibroids. Monitor labor progress. Pain control as desired. (2) Group B streptococcal carriage complicating : Status: Acute Assessment and plan: PNC for GBS prophylaxis (3) Uterine fibroids affecting : Status: Acute Assessment and plan: At risk for hemorrhage (4) BMI 31.0-31.9,adult: Status: Acute (5) related nausea and vomiting, antepartum: Status: Acute OB-HPI Labor/Delivery History of Present Illness Reason for Visit: SROM @ 2230, Early labor, GBS positive Chief Complaint: Uterine Contractions; Suspected Rupture of Membranes , Associated Signs and Symptoms of Suspected ROM: contractions. KAVON Calculator Estimated Delivery Date Method Current WG Current Estimate 07/26/20 Ultrasound #1 37w 5d Other Estimates 07/22/20 LMP (Certain) 38w 2d History of Present Expected Delivery Route/Plan - MD FOB/ - Raffi Hess Specific Issues/Plan 1. Hyperemesis gravidarum -on steroid taper during first trimester.Ondansetron 0jg1-9a/day 2. Constipation, adv to use Miralax, Colace, 05/23/20.Benafiber, (helps constipation, causes cramps) 3. BMI 31, early glucola 112 4. Low dose ASA start @ 12 wks for pre-e risk (nullip & BMI >30) 5. Desires [place], CF and SMA drawn 01/08/20 5a. CF & SMA carrier screen negative 6. Declines single marker AFP, declination form signed and scanned into EMR 7. Hx anxiety, never took meds, sees a therapist, declines referral to [facility], PHQ9 score is 6. 8. 06/05/20. Uterine fibroids: Anterior mid [id number], FAITH [id number], Post [id number] mm Review of Systems Narrative: Irregular contractins becoming more regular now. Was in and out of the Center earlier today. Now regular UC's and SROM at 2230. Clear, co pious. Good movement. No signs of pre-eclamsia Constitutional Constitutional: Reports as per HPI Comments: Chronic nausea and vomitting Eyes Eyes: Reports system reviewed and no additional complaints, except as documented Cardiovascular Cardiovascular: Reports system reviewed and no additional complaints, except as documented, Denies chest pain and Denies dyspnea Respiratory Respiratory: Reports system reviewed and no additional complaints, except as documented, Denies cough and Denies dyspnea Gastrointestinal Gastrointestinal: Reports system reviewed and no additional complaints, except as documented, Reports nausea and Reports vomiting Genitourinary Genitourinary: Reports as per HPI Musculoskeletal Musculoskeletal: Reports system reviewed and no additional complaints, except as documented Psychiatric Psychiatric: Reports system reviewed and no additional complaints, except as documented [facility] Medical History Group B streptococcal carriage complicating H/O eczema dishydrotic, periorbital Derm in [place] Normal in second trimester Sciatica Sleep disturbance works night shifts Surgical History No significant past surgical history Family History Father , leukemia No problems noted. Mother Anxiety Arthritis Depression Hypertension Maternal Grandmother Arthritis Paternal Grandfather No problems noted. 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, [employer] Sexually active: Yes Do you think of yourself as: straight/heterosexual Current gender identity: female What type of physical activity do you participate in: none Bella/Shinto: Druze Seatbelt use: always Drive intox or ride w/intox new autos delivery driver: No Working smoke detector in home: Yes Fire extinguisher in home: Yes Carbon monox detector in home: Yes Do you feel safe at home: Yes Do you feel safe in your relationship?: Yes Female Reproductive History Menstrual Age of Menarche: 12 control method: none History History 1 Para 0 Hx # Term Pregnancies 0 Multiple births 0 Hx # Pregnancies 0 Ectopic pregnancies 0 AB induced 0 Hx Number of Living Children 0 AB spontaneous 0 Meds Home Medications and Allergies Home Medications Medication Instructions Recorded Confirmed Type promethazine 25 mg [address] Q6H PRN #12 each 12/26/19 06/30/20 Rx suppository aspirin 81 mg tablet,delayed 81 mg PO DAILY #60 tab 01/08/20 06/30/20 Rx release butalbital 50 mg-acetaminophen 300 1 cap PO Q4H PRN 01/08/20 06/30/20 History mg-caffeine 40 mg-codeine 30 mg cap pyridoxine (vitamin B6) 25 mg PO TID #60 tab 02/06/20 06/30/20 Rx docusate sodium 100 mg capsule 100 mg PO DAILY 03/14/20 06/30/20 History ondansetron 8 mg disintegrating 8 mg PO TID #24 tab 04/18/20 06/30/20 Rx tablet breast pump #1 ea 06/09/20 06/30/20 Rx pantoprazole 20 mg tablet,delayed 40 mg PO BID #120 tab 06/17/20 06/30/20 Rx release ferrous sulfate 134 mg (27 mg 134 mg PO DAILY 07/07/20 History iron) tablet Allergies Allergy/AdvReac Type Severity Reaction Status Date / Time ferrous fumarate Allergy Intermediate Facial rash Verified 06/30/20 08:15 [From 1 + Iron] folic acid Allergy Intermediate Facial rash Verified 06/30/20 08:15 [From 1 + Iron] vit,tx Allergy Intermediate Facial rash Verified 06/30/20 08:15 calc,iron,folic acd(less thn 1 mg) [From 1 + Iron] vitamins with Allergy Intermediate Facial rash Verified 06/30/20 08:15 calcium [From 1 + Iron] shellfish derived Allergy Throat Verified 06/30/20 08:15 Swlling, Itching diphenhydramine AdvReac Intermediate eczema Verified 06/30/20 08:15 [From Benadryl] acts up cocamidopropyl betaine AdvReac Skin Rash Verified 06/30/20 08:15 Exam Constitutional Constitutional: mild distress Comments: Painful regular contractions every 3 minutes Detailed Labor and Delivery Exam Knox Score: Cervical Points Exam 0 1 2 3 Dilation Closed 1-2cm 3-4 cm 5-6cm Effacement 0-30% 40-50% 60-70% 80% Consistency Firm Medium Soft Station -3 -2 -1,0 +1,+2 Position Posterior Mid Anterior Fetus A Heart Rate Baseline: 140 Monitor Accelerations: 15 X 15 Monitor Decelerations: None Variability: Moderate (6-25 BPM) Presentation: Cephalic Categories: Category I Est. Weight: 7 lb Date of Membrane Rupture: 07/10/20 Time of Membrane Rupture: 22:30 HEENT Exam HEENT Exam: Normal Neck Exam Neck Exam: Normal Respiratory Exam Respiratory Exam: Normal Cardiovascular Exam Cardiovascular Exam: Normal Abdominal Exam Abdominal Exam: Normal Exam Exam: Normal Detailed Extremities Exam Extremities: Present full ROM; Absent cyanosis, clubbing and edema Comments: Adequate pelvis Skin Exam Skin Exam: Normal Detailed Neurological Exam Neurological: Present alert, oriented X3 and CN II-XII intact DetailedPsychiatric Exam Psychiatric: Present normal affect, normal thought process, cooperative and good judgment Results Abnormal Lab Findings: Abnormal Labs 07/10/20 23:05 WBC 13.19 H Hgb 10.9 L Hct 34.3 L MCH 26.6 L MCHC 31.8 L Risk Assessment Risk for Shoulder Dystocia Historical/Initial OB: POSITIVE FOR: Pre- BMI>30; NEGATIVE FOR: Pelvic Abnormality, Previous Shoulder Dystocia or Previous Macrosomia 40 Weeks: NEGATIVE FOR: EFW> 4500 gms, Maternal Weight Gain >40lb or Post Dates Increased Risk?: No Delivery Plan @ 40 wks: 07/10/20 Risk for Pre-Eclampsia Date Initiated/Initials: will start at 12 wks EGA. MURPHY Yes, if one or more: NEGATIVE FOR: Hx Pre-E/Gest HTN, Chronic HTN, Multiple Gestation, Pre-gestational DM, Renal Disease, Systemic Lupus or APA Syndrome Yes, if 2 or more: POSITIVE FOR: Nulliparity and BMI>30; NEGATIVE FOR: Age>= 35 yrs, >10yr btwn pregnancies, ethinicty, Mother/Sister w/ Pre-E or Previous IUGR Risk for Post- Hemorrhage Initial: NEGATIVE FOR: Multiple Gestation, Previous PPH, Known Clotting Deficiency, Grand Multiparity or Anticoagulation At Risk?: Yes Interventions: IV. Type and screen. Anesthsia aware Counseled re: Active Management: Yes Date/Initials: 07/10/20 KJ Risks Reviewed Risks Reviewed Upon Admission: Yes (Low for Shoulder dystocia, moderate fo PPH)
[2020-07-10] MEDS: Penicillin G POT. 5,000,000 UNITS in Normal Saline 100 ML 200 UNITS IVPB (23:30)
[2020-07-11] VITALS (45 sets, daily range): BP systolic 96–145; BP diastolic 54–86; PULSE 0–104; RESP 14–18; TEMP 36.5–37.4; O2SAT 96–98
[2020-07-11] MEDS: Penicillin G POT. 3,000,000 UNITS in Normal Saline 50 ML 100 UNITS IVPB ×2 (02:46→06:38)
--- NOTE | 2020-07-11 03:33 | W.PM.OBNL1 ---
Date of service: 07/11/20 Time of Service: 03:33 Pelvic Exam Dilation: 3 Effacement (%): 100 station: -1 Position: LISSETH Cervix Position: posterior Consistency: soft Contractions Monitor Mode: External Contraction Frequency(min): 3 Intensity: Strong Fetus A Heart Rate Baseline: 140 Assessment and Plan Assessment and plan (1) Normal labor: Status: Acute Assessment and plan: Painful regular contractions. 3 cm. Patient with significant fatigue. Will have epidural. Monitor closely. Anticipate vaginal delivery (2) SROM (spontaneous rupture of membranes): Status: Acute (3) Group B streptococcal carriage complicating : Status: Acute Assessment and plan: PCN as ordered. S/P 1 dose (4) Uterine fibroids affecting : Status: Acute Objective Abnormal lab results 07/10/20 Range/Units 23:05 WBC 13.19 H (4.4-10.8) 10^3/uL Hgb 10.9 L (11.2-15.7) g/dL Hct 34.3 L (36.0-46.0) % MCH 26.6 L (27.0-33.0) pg MCHC 31.8 L (32.0-36.0) % Temp Pulse Resp BP Pulse Ox 98.2 F 71 18 116/68 98 07/11/20 00:44 07/11/20 00:44 07/11/20 00:44 07/11/20 00:44 07/10/20 23:00 Laboratory Results WBC 13.19 10^3/uL (4.4-10.8) H 07/10/20 23:05 RBC 4.10 10^6/uL (3.93-5.22) 07/10/20 23:05 Hgb 10.9 g/dL (11.2-15.7) L 07/10/20 23:05 Hct 34.3 % (36.0-46.0) L 07/10/20 23:05 MCV 83.7 fL (80-95) 07/10/20 23:05 MCH 26.6 pg (27.0-33.0) L 07/10/20 23:05 MCHC 31.8 % (32.0-36.0) L 07/10/20 23:05 RDW 13.9 % (11.7-14.6) 07/10/20 23:05 Plt Count 209 10^3/uL (130-400) 07/10/20 23:05 MPV 10.2 fL (8.0-11.0) 07/10/20 23:05 Patient ABO/Rh A Positive 07/10/20 23:05 Antibody Screen Negative 07/10/20 23:05 Subjective Interval history since last seen: Very uncomfortable with pain of contractions. Regular, strong. Has used nitrous with minimal relief. Discussed options. Will call anesthesia for epidural placement Results Hemoglobin/Hematocrit: Hgb 10.9 g/dL (11.2-15.7) L 07/10/20 23:05 Hct 34.3 % (36.0-46.0) L 07/10/20 23:05 Abnormal Lab Findings: Abnormal Labs 07/10/20 23:05 WBC 13.19 H Hgb 10.9 L Hct 34.3 L MCH 26.6 L MCHC 31.8 L
[2020-07-11] MEDS: Lactated Ringers 250 ML 500 ML IV (04:00)
--- NOTE | 2020-07-11 04:34 | W.PM.OBNL1 ---
Date of service: 07/11/20 Time of Service: 04:34 Contractions Monitor Mode: External Contraction Frequency(min): 3 Intensity: Strong Fetus A Monitor: External (US) Heart Rate Baseline: 130 Objective Abnormal lab results 07/10/20 Range/Units 23:05 WBC 13.19 H (4.4-10.8) 10^3/uL Hgb 10.9 L (11.2-15.7) g/dL Hct 34.3 L (36.0-46.0) % MCH 26.6 L (27.0-33.0) pg MCHC 31.8 L (32.0-36.0) % Temp Pulse Resp BP Pulse Ox 98.2 F 89 18 122/74 97 07/11/20 00:44 07/11/20 04:32 07/11/20 00:44 07/11/20 04:29 07/11/20 04:32 Laboratory Results WBC 13.19 10^3/uL (4.4-10.8) H 07/10/20 23:05 RBC 4.10 10^6/uL (3.93-5.22) 07/10/20 23:05 Hgb 10.9 g/dL (11.2-15.7) L 07/10/20 23:05 Hct 34.3 % (36.0-46.0) L 07/10/20 23:05 MCV 83.7 fL (80-95) 07/10/20 23:05 MCH 26.6 pg (27.0-33.0) L 07/10/20 23:05 MCHC 31.8 % (32.0-36.0) L 07/10/20 23:05 RDW 13.9 % (11.7-14.6) 07/10/20 23:05 Plt Count 209 10^3/uL (130-400) 07/10/20 23:05 MPV 10.2 fL (8.0-11.0) 07/10/20 23:05 Patient ABO/Rh A Positive 07/10/20 23:05 Antibody Screen Negative 07/10/20 23:05 Subjective Patient Reports: No new Complaints Interval history since last seen: Patient seen S/P epidural placement. Significant relief with test dose. FHT 120-130, moderate variability. Category 1 strip. BP stable. Still with regular contractions every 3 minutes. Continuew to monitor and allow rest Interventions Pain Management Interventions: Epidural (Now in place with good effect) Epidural Placed by:: Richard Parrish . Results Hemoglobin/Hematocrit: Hgb 10.9 g/dL (11.2-15.7) L 07/10/20 23:05 Hct 34.3 % (36.0-46.0) L 07/10/20 23:05 Abnormal Lab Findings: Abnormal Labs 07/10/20 23:05 WBC 13.19 H Hgb 10.9 L Hct 34.3 L MCH 26.6 L MCHC 31.8 L
[2020-07-11] MEDS: FentaNYL/ROPIvacaine 2 mcg/ml and 0.1% 200 ML CADD Cassette EP (05:07)
[2020-07-11] MEDS: Lactated Ringers 1,000 ML 125 ML IV (07:15)
--- NOTE | 2020-07-11 07:52 | W.PM.PROGNOT ---
Date of Service Date of service: 07/11/20 Time of Service: 07:52 Assessment and Plan Assessment and plan (1) Normal labor: Status: Acute Assessment and plan: Slowed contractions, now with deep decels. Cannot start pitocin as of yet. Discussed the possibility of section with patient and her pertner (2) SROM (spontaneous rupture of membranes): Status: Acute Assessment and plan: ROM x 10 hours (3) Group B streptococcal carriage complicating : Status: Acute Assessment and plan: S/P 3 doses PCN. (4) Uterine fibroids affecting : Status: Acute Assessment and plan: May contribute to labor dystocia and increased risk of PPH Subjective Subjective Patient reports: no new complaints Interval history since last seen: 3 minute decel with contraction. Resolved spontaneously. Contractions every 5 minutes Exam Const General: cooperative, healthy appearing, comfortable and no acute distress Resp Effort & Inspection: normal respiratory effort Cardio Rate: regular rate Objective Last Vital Signs Temp 98.1 F 07/11/20 05:01 Pulse 68 07/11/20 06:32 Resp 18 07/11/20 00:44 BP 105/60 07/11/20 06:32 Pulse Ox 98 07/11/20 04:37 Laboratory Results - last 24 hr 07/10/20 07/10/20 23:05 23:05 WBC 13.19 H RBC 4.10 Hgb 10.9 L Hct 34.3 L MCV 83.7 MCH 26.6 L MCHC 31.8 L RDW 13.9 Plt Count 209 MPV 10.2 Patient ABO/Rh A Positive Antibody Screen Negative
--- NOTE | 2020-07-11 08:05 | W.PM.OBNL1 ---
Date of service: 07/11/20 Time of Service: 08:05 Informed Consent Informed Consent: Augmentation of Labor Pelvic Exam Comments: I did not repeat the sterile vaginal exam. Contractions Monitor Mode: External Intensity: Mild Fetus A Monitor: External (US) Presentation: Cephalic Variability: Moderate (6-25 BPM) FHR Rhythm: Regular Characteristics: Normal Accelerations: 15 X 15 Decelerations: Variable Recurrence: Intermittent Amniotic Membrane Status: Ruptured Assessment Note: Will attempt to obtain a clearer picture of uterine contraction pattern. We will continue plans for augmentation of labor. Assessment and Plan Assessment and plan (1) SROM (spontaneous rupture of membranes): Status: Acute (2) Group B streptococcal carriage complicating : Status: Acute (3) Uterine fibroids affecting : Status: Acute (4) Normal labor: Status: Acute Assessment and plan: Currently minimal cervical change after epidural placed approximately 3 hours ago. Plan is to augment her labor with with close surveillance of heart rate. Objective Abnormal lab results 07/10/20 Range/Units 23:05 WBC 13.19 H (4.4-10.8) 10^3/uL Hgb 10.9 L (11.2-15.7) g/dL Hct 34.3 L (36.0-46.0) % MCH 26.6 L (27.0-33.0) pg MCHC 31.8 L (32.0-36.0) % Temp Pulse Resp BP Pulse Ox 98.1 F 68 18 105/60 98 07/11/20 05:01 07/11/20 06:32 07/11/20 00:44 07/11/20 06:32 07/11/20 04:37 Laboratory Results WBC 13.19 10^3/uL (4.4-10.8) H 07/10/20 23:05 RBC 4.10 10^6/uL (3.93-5.22) 07/10/20 23:05 Hgb 10.9 g/dL (11.2-15.7) L 07/10/20 23:05 Hct 34.3 % (36.0-46.0) L 07/10/20 23:05 MCV 83.7 fL (80-95) 07/10/20 23:05 MCH 26.6 pg (27.0-33.0) L 07/10/20 23:05 MCHC 31.8 % (32.0-36.0) L 07/10/20 23:05 RDW 13.9 % (11.7-14.6) 07/10/20 23:05 Plt Count 209 10^3/uL (130-400) 07/10/20 23:05 MPV 10.2 fL (8.0-11.0) 07/10/20 23:05 Patient ABO/Rh A Positive 07/10/20 23:05 Antibody Screen Negative 07/10/20 23:05 Subjective Patient Reports: No new Complaints Interval history since last seen: Pt has satisfactory pain relief now that epidural is in place and functioning. However she has had to variable decelerations of the heart rate without a clear association with uterine contraction. She is receiving penicillin for group B strep prophylaxis. The plan at this time is to augment her labor with oxytocin. Interventions Pain Management Interventions: Epidural Epidural Placed by:: Richard Parrish Patient comfortable tolerating contractions stable blood pressure . ./ Augmentation , Pitocin rate (mU/min): 2 Results Hemoglobin/Hematocrit: Hgb 10.9 g/dL (11.2-15.7) L 07/10/20 23:05 Hct 34.3 % (36.0-46.0) L 07/10/20 23:05 Abnormal Lab Findings: Abnormal Labs 07/10/20 23:05 WBC 13.19 H Hgb 10.9 L Hct 34.3 L MCH 26.6 L MCHC 31.8 L
[2020-07-11] MEDS: Oxytocin/Normal Saline 30 UNIT/500 ML BAG 2 UNITS IV (08:18)
--- NOTE | 2020-07-11 09:18 | W.PM.OBNL1 ---
Date of service: 07/11/20 Time of Service: 09:18 Informed Consent Informed Consent: Augmentation of Labor Assessment and Plan Assessment and plan (1) Abnormal heart rate or rhythm (FHR): Status: Acute Objective Abnormal lab results 07/10/20 Range/Units 23:05 WBC 13.19 H (4.4-10.8) 10^3/uL Hgb 10.9 L (11.2-15.7) g/dL Hct 34.3 L (36.0-46.0) % MCH 26.6 L (27.0-33.0) pg MCHC 31.8 L (32.0-36.0) % Temp Pulse Resp BP Pulse Ox 98.1 F 68 18 105/60 98 07/11/20 05:01 07/11/20 06:32 07/11/20 00:44 07/11/20 06:32 07/11/20 04:37 Laboratory Results WBC 13.19 10^3/uL (4.4-10.8) H 07/10/20 23:05 RBC 4.10 10^6/uL (3.93-5.22) 07/10/20 23:05 Hgb 10.9 g/dL (11.2-15.7) L 07/10/20 23:05 Hct 34.3 % (36.0-46.0) L 07/10/20 23:05 MCV 83.7 fL (80-95) 07/10/20 23:05 MCH 26.6 pg (27.0-33.0) L 07/10/20 23:05 MCHC 31.8 % (32.0-36.0) L 07/10/20 23:05 RDW 13.9 % (11.7-14.6) 07/10/20 23:05 Plt Count 209 10^3/uL (130-400) 07/10/20 23:05 MPV 10.2 fL (8.0-11.0) 07/10/20 23:05 Patient ABO/Rh A Positive 07/10/20 23:05 Antibody Screen Negative 07/10/20 23:05 Subjective Patient Reports: No new Complaints Interventions Augmentation , Pitocin rate (mU/min): 0 Oxytocin infusion discontinued ~ 0900 after variable decels of FHR assoc with contractions. Category 2. C/S was recommended to pt and her 2/2 FHR non-reassuring. Informed consent signed including discussion of risks of procedure: bleeding from uterus/fibroids that may result in hysterectomy or transfusion of blood products. Infection, damage to surrounding structures discussed with pt. Informed consent obtained and pt's questions were answered. . Results Hemoglobin/Hematocrit: Hgb 10.9 g/dL (11.2-15.7) L 07/10/20 23:05 Hct 34.3 % (36.0-46.0) L 07/10/20 23:05 Abnormal Lab Findings: Abnormal Labs 07/10/20 23:05 WBC 13.19 H Hgb 10.9 L Hct 34.3 L MCH 26.6 L MCHC 31.8 L Procedure Procedures: Other (FHR variable decelerations.)
[2020-07-11] MEDS: ceFAZolin 2 GM/50 ML BAG IVPB (09:32)
[2020-07-11] MEDS: Sodium Citrate 30 ML CUP PO (09:35)
[2020-07-11] MEDS: AZITHROMYCIN 500 MG in Normal Saline 250 ML 250 MG IVPB (09:52)
[2020-07-11] MEDS: Bupivacaine 0.25% Pres-Free 30 ML VIAL (10:51)
[2020-07-11] MEDS: Acetaminophen 325 MG TAB 650 MG PO ×2 (14:43→20:17)
[2020-07-11] MEDS: Ketorolac 30 MG/ML VIAL IVP ×2 (15:51→21:58)
--- NOTE | 2020-07-11 17:17 | PDOC.OPNB_ITS ---
Date of service: 07/11/20 Time of Service: 17:18 Operative Note Operative Note Delivery Method: Unscheduled Category: Urgent and Primary DATE OF PROCEDURE: 07/11/20 PRE-OP DIAGNOSES: Arrest of dilation, intolerance of labor, remoted from delivery POST-OP DIAGNOSES: same PROCEDURE: Primary, unscheduled low transverse delivery SURGEON: Kamla Hawkins Manager Interface: Rosa Anderson Anesthesia: epidural Estimated blood loss (mL): 500 Pathology: other (cord blood to lab) Complications: None Patient was transported to: floor Patient's condition: stable Indications: 24yo G1 female with hx of fibroid uterus presented at term with SROM and spontaneous labor. Max cervical dilation 4cm prior to augmentation of labor with Oxytocin. FHR changed from Class 1 to class 2 with deep repetative variable decelerations of heart rate with every contraction. She remained 4cm at the time the decision was made to proceed with delivery. Findings: Viable male in OA position low in the pelvis with 2 nuchal cords. Clear amniotic fluid. Weight 7lb0 oz, Apgars 7/9. Uterus was bulky but uterine cavity was not obstructed by fibroids. Nl ovaries and fallopian tubes. Procedure Description: Patient was taken to the operating room where her existing epidural was redosed to provide surgical anesthesia. She was then placed in the dorsal supine position, her vagina and abdoment cleansed with diluted 4% Chlorahexadine and 2% Chlorahexadine respectively. A Kwok was placed to gravity drainage. SCDs were in place. She received 500mg Azithromycin and 2 g of Ancef IV prior to skin incision. After an adequate level of anesthesia was obtained and timeout performed scalpel was used to incise the skin in a transverse fashion. The underlying subcutaneous tissue was dissected with Bovie electrocautery to the level of the rectus fascia. The rectus fascia was incised and the incision was extended laterally with curved Ha[place]on scissors. Wood clamps were applied to the superior aspect of the rectus fascia and the rectus fascia was dissected off of the underlying rectus muscles with combination of blunt technique and Bovie electrocautery. A similar technique was carried out on the inferior aspect of the same incision. Rectus muscles were in the midline and the peritoneum was entered bluntly and the incision was extended laterally using blunt technique. An Solomon retractor was inserted and the vesicouterine peritoneum over the lower uterine segment was incised and the incision extended laterally and the bladder flap created digitally. Scalpel was used to incise the lower uterine segment and the uterine incision was extended bluntly in transverse fashion. The intact amniotic sac was then ruptured with clear amniotic fluid noted. A single gloved hand was pl aced into the uterus and with the assistance of fundal pressure the 's head was delivered to the uterine incision the skin incision was extended 2cm in the left lateral direction which allowed the head to be delivered atraumatically. An attempt to place and inflate the Kiwi vacuum device was stopped after the incision was extended and the head delivered through the incision followed by the trunk and extremities. The cord was doubly clamped and cut and the infant handed off to waiting pediatric team. The placenta was delivered intact with a combination of gentle cord traction and fundal massage. Cord blood was collected. The uterus remained in the pelvis and cleared of clots and debris. The uterine incision was then reapproximated with a running lock suture of 0 Monocryl followed by a second imbricating suture of 0 Monocryl. The incision was hemostatic at the completion of the uterine repair. The paracolic gutters were cleared of clots debris and the uterine incision, bladder flap and anterior abdominal wall were inspected and noted to be hemostatic. The visceral peritoneum was reapproximated with a running suture of 2-0 Vicryl followed by closure of the rectus fascia with a single layer of 0 Vicryl extending from the lateral margins and overlapping in the midline.. The subcutaneous tissue was irrigated with normal saline was then reapproximated with a running suture of 2-0 Vicryl. The skin incision was closed with a 4-0 Vicryl suture in a subcuticular fashion. The skin was then sealed with skin glue and the uterus was massaged for any remaining clots and debris. The patient was then transported to [facility] in stable condition. All sponge lap needle counts are correct x2. [place] Gestational Age in Weeks/Days: 37 Weeks and 6 Days Gender: Male weight: 7 lb 0.7 oz Gender-Baby B: Male (His parents plan to name him Jesse.)
[2020-07-11] MEDS: Normal Saline Flush 10 ML SYR IVP ×2 (21:06→21:59)
[2020-07-11 21:44] LABS: COVID-19 RT-PCR UVMMC Result Negative (Negative)
[2020-07-12] MEDS: Acetaminophen 325 MG TAB 650 MG PO ×5 (00:53→20:59)
[2020-07-12 00:56] VITALS: BP 123/80; PULSE 67; RESP 18; TEMP 36.8; O2SAT 98
[2020-07-12 04:15] VITALS: BP 111/61; PULSE 66; RESP 16; TEMP 36.7; O2SAT 98
[2020-07-12] MEDS: Ketorolac 30 MG/ML VIAL IVP ×2 (04:24→09:46)
[2020-07-12] MEDS: Normal Saline Flush 10 ML SYR IVP ×2 (04:24→09:47)
[2020-07-12 08:09] VITALS: BP 114/75; PULSE 76; RESP 14; TEMP 37.5
--- NOTE | 2020-07-12 10:08 | W.PM.OBPNV1 ---
Date of service: 07/12/20 Time of Service: 10:08 Assessment and Plan Assessment and plan (1) History of delivery: Status: Acute Assessment and plan: Satisfactory postop recovery. We briefly discussed the events leading up to her delivery. Contraception was not discussed at this visit. Subjective Subjective Interval history: HD#2 POD1 unscheduled urgent delivery for nonreassuring heart rate far from delivery. She reports that she feels okay. Pain is controlled with NSAIDs. She is able to get out of bed unassisted and care for herself and her . Voiding spontaneously and tolerating a regular diet. Exam Physical Exam Vital signs: Temp Pulse Resp BP Pulse Ox 99.5 F 76 14 114/75 98 07/12/20 08:09 07/12/20 08:09 07/12/20 08:09 07/12/20 08:09 07/12/20 04:15 Vital Signs Reviewed: Yes Constitutional Constitutional: no acute distress Neck Exam Neck Exam: Normal Respiratory Exam Respiratory Exam: Normal Cardiovascular Exam Cardiovascular Exam: Normal Abdominal Exam Abdomen: Tender (Minimal discomfort with palpation) Comments: Incision clean dry and intact skin glue in place no active gnosis Fundal Exam Fundus: Below Umbilicus (1 fingerbreadth below) Rectal Exam Rectal Exam: Not Done Extremities Exam Extremity Exam: Normal; negative Edema Back/Spine/Pelvis Exam Back Exam: Not Done Skin Exam Skin Exam: Normal Neurological Exam Neurological Exam: Normal Psychiatric Exam Psychiatric Exam: Normal Results Hemoglobin/Hematocrit: Hgb 10.9 g/dL (11.2-15.7) L 07/10/20 23:05 Hct 34.3 % (36.0-46.0) L 07/10/20 23:05 Abnormal Lab Findings: Abnormal Labs 07/10/20 23:05 WBC 13.19 H Hgb 10.9 L Hct 34.3 L MCH 26.6 L MCHC 31.8 L
[2020-07-12] MEDS: Ibuprofen 600 MG TAB PO ×2 (15:53→22:02)
[2020-07-12 19:44] VITALS: BP 118/78; PULSE 74; RESP 16; TEMP 36.5; O2SAT 96
[2020-07-13 00:19] VITALS: BP 114/70; PULSE 76; RESP 16; O2SAT 98
[2020-07-13] MEDS: Acetaminophen 325 MG TAB 650 MG PO ×3 (00:51→10:40)
[2020-07-13] MEDS: Ibuprofen 600 MG TAB PO ×2 (03:54→10:41)
[2020-07-13 03:57] VITALS: BP 107/71; PULSE 76; RESP 16; TEMP 36.7; O2SAT 98
[2020-07-13 08:47] VITALS: BP 126/72; PULSE 70; RESP 14; TEMP 37
--- NOTE | 2020-07-13 10:35 | W.PM.DS.N ---
Date of service: 07/13/20 Time of Service: 10:35 DS: Diagnosis Discharge Diagnosis (1) Abnormal heart rate or rhythm (FHR): Status: Acute (2) Uterine fibroids affecting : Status: Acute (3) History of delivery: Status: Acute Discharge Plan Disposition Patient Disposition: HOME Condition: Fair Discharge Details Admit Date/Time: 07/10/20 22:36 Admit Provider: Rosa Anderson Attending Provider: Rosa Anderson Primary Care Provider: Nedra Bunn Hospital Course Hospital Course: Patient was admitted with spontaneous rupture membranes and uterine contractions in the evening of 07/10/2020. Maximum cervical dilatation reached 4 cm. heart rate showed recurrent variable decelerations incision was made to proceed with delivery. She had a primary low transverse delivery of a male infant who will be named Jesse weighing 7 pounds 0 ounces Apgars 7/9. Patient was discharged home on postop day 2 successfully breast-feeding with pain controlled with ibuprofen and Tylenol. Uterine incision was clean dry and intact. The plan is to have her use nonsteroidal anti-inflammatories and acetaminophen for pain control while at home and to follow-up in approximately 1 week for a postop check. Home Meds and New Rx's Prescriptions: No Action docusate sodium [Colace] 100 mg capsule 100 mg PO DAILY RF: 0 ondansetron 8 mg tablet,disintegrating 8 mg PO TID Qty: 24 RF: 5 (DME) breast pump Device See Rx Instructions .ROUTE .MEDSUPPLY Qty: 1 RF: 0 ztlxmasytc-zcqhzgjyac-gse-cod [id number] mg capsule 1 cap PO Q4H PRNRF: 0 aspirin 81 mg tablet,delayed release (DR/EC) 81 mg PO DAILY Qty: 60 RF: 4 ferrous sulfate 134 mg (27 mg iron) tablet 134 mg PO DAILY RF: 0 promethazine 25 mg suppository 25 mg CA Q6H PRN (Reason: nausea and vomiting) Qty: 12 RF: 2 pantoprazole [Protonix] 20 mg tablet,delayed release (DR/EC) 40 mg PO BID Qty: 120 RF: 2 pyridoxine (vitamin B6) 25 mg tablet 25 mg PO TID Qty: 60 RF: 0 Discharge Instructions Additional Instructions: Call [phone] to make an appoint with for postop check with Dr. Hawkins on 07/21/2020. Stand Alone Forms: BC Instructions, BC Discharge Instruc Activity:: Activity as Tolerated Equipment/Supplies:: No Equipment Needed Diet:: As Tolerated Discharge Orders Discharge Orders: Discharge Order (Routine); Ordered 07/13/20 Ordered By: Kamla Hawkins DS: Summary Time Spent with Patient providing and/or coordinating discharge services: Less than 30 minutes Status at Discharge Functional status at discharge: independent ambulation Overall status at discharge: patient is progressing back to baseline Mental Status: mental status grossly normal Speech and Movement: speech and movement normal Mood: congruent mood Affect: normal affect Exam Const General: no acute distress Nutritional Appearance: average body habitus Orientation: alert, awake and oriented x3 Chest Breast inspection: normal inspection of the breasts (No engorgement no erythema) Resp Effort & Inspection: normal respiratory effort Cardio Rate: regular rate GI Other: Fundus firm 2 fingerbreadths below umbilicus. Pfannenstiel skin incision clean dry and intact General: deferred Skin General skin exam: no rashes or lesions noted Extrem General: normal to inspection and no pedal edema Psych Appearance: grossly normal Mental Status: mental status grossly normal Speech and Movement: speech and movement normal Mood: congruent mood Affect: normal affect DS: Data Vitals/I&O Vitals and I&O: Vital Signs Temperature 98.6 F 07/13/20 08:47 Pulse 70 07/13/20 08:47 Pulse Rhythm Regular 07/13/20 08:47 Respiratory Rate 14 07/13/20 08:47 Respiratory Depth Normal 07/12/20 19:44 Blood Pressure 126/72 07/13/20 08:47 Blood Pressure Mean 90 07/13/20 08:47 Pulse Oximetry 98 07/13/20 03:57 Oxygen Delivery Method Room Air 07/10/20 23:00 Oxygen Flow Rate 0 07/10/20 23:00 Pain Level 3 07/13/20 03:57 Intake & Output 07/12/20 07/12/20 07/13/20 11:59 23:59 11:59 Intake Total 500 / 500 Output Total 700 / 700 Balance -200 / -200 Intake: Oral 500 / 500 Output: Urine 700 / 700 Other: Urine Color Yellow Yellow [facility] Medical History (Updated 07/13/20 @ 10:42 by Kamla Hawkins MD) Abnormal heart rate or rhythm (FHR) Group B streptococcal carriage complicating H/O eczema dishydrotic, periorbital Derm in [place] Normal labor Normal in second trimester Sciatica Sleep disturbance works night shifts SROM (spontaneous rupture of membranes) Surgical History (Updated 07/13/20 @ 11:11 by Kamla Hawkins MD) History of delivery 07/11/20. Non-reassuring FHR.Jesse. [id number]. Hx of section Family History Father , leukemia No problems noted. Mother Anxiety Arthritis Depression Hypertension Maternal Grandmother Arthritis Paternal Grandfather No problems noted. 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, [employer] Sexually active: Yes Do you think of yourself as: straight/heterosexual Current gender identity: female What type of physical activity do you participate in: none Bella/Samaritan: Orthodoxy Seatbelt use: always Drive intox or ride w/intox water tanker driver: No Working smoke detector in home: Yes Fire extinguisher in home: Yes Carbon monox detector in home: Yes Do you feel safe at home: Yes Do you feel safe in your relationship?: Yes Female Reproductive History Menstrual Age of Menarche: 12 control method: none History History 1 Para 0 Hx # Term Pregnancies 0 Multiple births 0 Hx # Pregnancies 0 Ectopic pregnancies 0 AB induced 0 Hx Number of Living Children 0 AB spontaneous 0
== END 2020-07-13 14:30 | disposition home or self-care (01) | DRG 788 ==
PROVIDERS: Obstetrics & Gynecology Gynecology; Admitting Provider Obstetrics & Gynecology; PCP Nurse Practitioner Adult Health; Visit Provider Obstetrics & Gynecology
PROC: 10D00Z1 Extraction of Products of Conception, Low, Open Approach (ICD-10-PCS; CPT 59514; principal; 2020-07-11 09:30)
DX: O42.02 Full-term premature rupture of membranes, onset of labor within 24 hours of rupture (principal); O34.13 Maternal care for benign tumor of corpus uteri, third trimester; D25.9 Leiomyoma of uterus, unspecified; O99.824 Streptococcus B carrier state complicating childbirth; O76 Abnormality in fetal heart rate and rhythm complicating labor and delivery; O62.1 Secondary uterine inertia; Z3A.37 37 weeks gestation of pregnancy; Z37.0 Single live birth
CPT/HCPCS: 59514; 36415; 85027; 86850; 86900; 86901; 99232; NC; U0003; J0171; J0456; J0690; J1885; J2405; J2540

== ENCOUNTER 2020-11-18 16:59 | Outpatient (CLI) | payer BC, SELFPAY ==
[2020-11-18 12:55] LABS: HCG Quant, Pregnancy 3501 mIU/mL (1-3)
== END 2020-11-18 17:00 | disposition home or self-care (01) ==
LOC: LBO 11-19 17:00
PROVIDERS: PCP Nurse Practitioner Adult Health; Visit Provider Nurse Practitioner Women's Health
DX: O20.8 Other hemorrhage in early pregnancy (principal)
CPT/HCPCS: 36415; 84702

== ENCOUNTER 2020-11-20 02:03 | Outpatient (CLI) | payer BC, SELFPAY ==
[2020-11-20 11:32] LABS: HCG Quant, Pregnancy 6158 mIU/mL (1-3)
== END 2020-11-20 02:04 | disposition home or self-care (01) ==
LOC: LBO 02:03
PROVIDERS: PCP Nurse Practitioner Adult Health; Visit Provider Nurse Practitioner Women's Health
DX: O20.8 Other hemorrhage in early pregnancy (principal)
CPT/HCPCS: 36415; 84702

== ENCOUNTER 2020-12-09 15:11 | Outpatient (RCR) | payer BC, SELFPAY ==
[2020-12-09] MEDS: Normal Saline Flush 10 ML SYR IVP (15:25)
[2020-12-09] MEDS: Normal Saline 1,000 ML 1000 ML IV (15:30)
== END 2021-01-03 23:59 | disposition home or self-care (01) ==
LOC: INF 15:11
PROVIDERS: PCP Nurse Practitioner Adult Health; Visit Provider Obstetrics & Gynecology
DX: O21.0 Mild hyperemesis gravidarum (principal)
CPT/HCPCS: 36430

== ENCOUNTER 2020-12-17 10:00 | Observation (INO) | payer BC, SELFPAY ==
[2020-12-17] MEDS: Normal Saline Flush 10 ML SYR IVP (10:24)
[2020-12-17] MEDS: DEXTROSE 5%-LACTATED RINGERS 1,000 ML 200 ML IV (10:28)
[2020-12-17 10:33] VITALS: BP 111/64; PULSE 86; RESP 22; TEMP 37.1
[2020-12-17] MEDS: Ondansetron 4 MG/2 ML VIAL IVP (11:18)
== END 2020-12-17 13:15 | disposition home or self-care (01) ==
PROVIDERS: Admitting Provider Obstetrics & Gynecology Gynecology; PCP Nurse Practitioner Adult Health; Visit Provider Obstetrics & Gynecology Gynecology
DX: O21.1 Hyperemesis gravidarum with metabolic disturbance (principal); Z3A.09 9 weeks gestation of pregnancy
CPT/HCPCS: 96360; 96361; J2405

== ENCOUNTER 2020-12-23 02:39 | Outpatient (CLI) | payer BC, SELFPAY ==
[2020-12-23 14:46] LABS: Kit/Specimen SENT
[2020-12-23 14:49] LABS: Abs Immature Grans 0.02 10^3/uL (0.0-0.06); Absolute Basophil Count 0.01 10^3/uL (0.0-0.2); Absolute Eosinophil Count 0.03 10^3/uL (0.0-0.7); Absolute Lymphocyte Count 1.71 10^3/uL (1.2-3.4); Absolute Monocyte Count 0.67 10^3/uL (0.1-0.8); Absolute Neutrophil Count 5.65 10^3/uL (1.2-6.7); Basophils % 0.1; Eosinophils % 0.4; HCT 33.5 % (36.0-46.0); Immature Grans % 0.2; Lymphocytes % 21.1; MCH 21.2 pg (27.0-33.0); MCHC 29.9 % (32.0-36.0); MCV 71.1 fL (80-95); MPV 9.5 fL (8.0-11.0); Monocytes % 8.3; Neutrophils % 69.9; Nucleated RBC 0 %; Platelet Count 314 10^3/uL (130-400); RBC 4.71 10^6/uL (3.93-5.22); RDW 16.6 % (11.7-14.6); RDW-SD 42.2 fL; WBC 8.09 10^3/uL (4.4-10.8)
[2020-12-23 14:56] LABS: Glucose,1 Hr (Glucola) 118 mg/dL (80-140)
[2020-12-23 16:15] LABS: Anisocytosis 1+; Diff Comment RBC Morph Reviewed
[2020-12-23 16:18] LABS: Hypochromasia 2+; Microcytosis 2+
[2020-12-23 16:19] LABS: Poikilocytes 1+; Polychromasia Present
[2020-12-23 16:46] LABS: TSH (W/Ref FT4) 0.59 uIU/mL (0.36-3.74)
[2020-12-24 09:28] LABS: Hepatitis B Surface Ag Negative (Negative)
[2020-12-24 10:36] LABS: Hepatitis C Ab w Rflx HCV PCR Negative (Negative)
[2020-12-24 10:45] LABS: HIV-1/2 Ag & Ab Screen Negative (Negative)
[2020-12-24 11:03] LABS: Varicella IgG Antibody Positive (See Note)
[2020-12-24 11:05] LABS: Rubella IgG Ab (UVM) Positive (See Note)
[2020-12-25 10:01] LABS: Syphilis Total Ab w/Reflex Nonreactive (Nonreactive)
== END 2020-12-23 02:40 | disposition home or self-care (01) ==
LOC: LBO 02:39
PROVIDERS: Advanced Practice Midwife; PCP Nurse Practitioner Adult Health; Visit Provider Obstetrics & Gynecology Gynecology
DX: Z34.91 Encounter for supervision of normal pregnancy, unspecified, first trimester; O21.0 Mild hyperemesis gravidarum; Z68.31 Body mass index [BMI] 31.0-31.9, adult; Z11.4 Encounter for screening for human immunodeficiency virus [HIV]; Z11.59 Encounter for screening for other viral diseases; Z01.84 Encounter for antibody response examination
CPT/HCPCS: 36415; 82950; 86787; 86803; 86850; 86900; 86901; 87340; 87389; 87491; 87591; 84443; 85025; 86762; 86780; 87086; 87480; 87510; 87660

== ENCOUNTER 2020-12-23 17:55 | Outpatient (REF) | payer BC, SELFPAY ==
[2020-12-25 15:04] LABS: Chlamydia Result Negative (Negative); GC Result Negative (Negative)
== END 2020-12-23 17:56 | disposition home or self-care (01) ==
LOC: LBN 17:55
PROVIDERS: PCP Nurse Practitioner Adult Health; Visit Provider Advanced Practice Midwife
DX: Z34.91 Encounter for supervision of normal pregnancy, unspecified, first trimester (principal); Z11.3 Encounter for screening for infections with a predominantly sexual mode of transmission
CPT/HCPCS: 87491; 87591; 87480; 87510; 87660

== ENCOUNTER 2020-12-27 07:20 | Outpatient (REF) | payer BC, SELFPAY ==
[2020-12-27 08:07] LABS: *AMPHETAMINES SCREEN URINE Negative (Negative); *BARBITURATES SCREEN URINE Negative (Negative); *BENZODIAZEPINES SCREEN URINE Negative (Negative); Cannabinoids THC Negative (Negative); Cocaine Screen,Urine Negative (Negative); METHADONE URINE SCREEN Negative (Negative); OPIATES URINE SCREEN Negative (Negative)
[2020-12-27 08:15] LABS: Tricyclic Antidepressants Negative (Negative)
[2021-01-03 11:39] LABS: Buprenorphine Negative ng/mL (Cutoff: 5.0); Norbuprenorphine Negative ng/mL (Cutoff: 2.5)
== END 2020-12-27 07:21 | disposition home or self-care (01) ==
LOC: LBN 07:20
PROVIDERS: PCP Nurse Practitioner Adult Health; Visit Provider Advanced Practice Midwife
DX: Z34.91 Encounter for supervision of normal pregnancy, unspecified, first trimester (principal); Z3A.10 10 weeks gestation of pregnancy
CPT/HCPCS: 80307

== ENCOUNTER 2021-04-20 01:48 | Outpatient (CLI) | payer BC, SELFPAY ==
--- NOTE | 2021-04-20 12:50 | DI.US_ITS ---
Exam(s) US OB JOHNNY WEIGHT EXAM: US OB JOHNNY WEIGHT CLINICAL HISTORY: S>D on abd measurement secondary to fibroid,D25.9,N85.2. TECHNIQUE: Transabdominal obstetrical ultrasound was performed. COMPARISON: US US OB 2-3 TRIMESTER from 03/12/2021 US US OB 2-3 TRIMESTER from 03/12/2021 FINDINGS: There is a single viable intrauterine gestation with cardiac activity identified-143 bpm The fetus is presently in breech position. Multiple uterine fibroids are again noted, the largest me asuring 8.6 x 6.6 x 5.5 cm. Amniotic fluid: There is a normal amount of amniotic fluid with an JOHNNY of 14.1cm. Placental location: The placenta is anterior-fundal grade 1,with no evidence of placenta previa.Dista nce from the placental tip to the internal cervical os is 13.8 cm on today's study. The umbilical co rd insertion is somewhat marginal on the placenta (1.8 cm). Dating parameters place this at approximately 26 weeks and 6 days gestational age, implying KAVON of July 21, 2021. BPD measures 25 weeks and 3 days HC measures 27 weeks and 2 days AC measures 27 weeks and 5 days FL measures 26 weeks and 5 days Estimated weight is 1,038 gm-pounds 5 ounces Fetus is at the 51st percentile on the Hadlock scale. IMPRESSION:: Viable intrauterine gestation, as described above. No evidence of placenta previa. So mewhat marginal location of the cord insertion which is 1.8 cm from the placental margin. Fetus is a t 51st percentile on Hadlock scale. Multiple uterine fibroids are again noted on the left side of the fundus uterus. Largest of these me asures 8.6 x 6.6 x 5.5 cm DATA REPOSITORY:
== END 2021-04-20 02:08 ==
PROVIDERS: PCP Nurse Practitioner Adult Health; Visit Provider Obstetrics & Gynecology Gynecology
DX: Z34.82 Encounter for supervision of other normal pregnancy, second trimester (principal); N85.2 Hypertrophy of uterus; D25.9 Leiomyoma of uterus, unspecified
CPT/HCPCS: 76816

== ENCOUNTER 2021-04-27 03:44 | Outpatient (CLI) | payer BC, SELFPAY ==
[2021-04-27 12:11] LABS: HCT 29.4 % (36.0-46.0); HGB 8.5 g/dL (11.2-15.7); MCH 20.5 pg (27.0-33.0); MCHC 28.9 % (32.0-36.0); MPV 9.9 fL (8.0-11.0); Platelet Count 285 10^3/uL (130-400); RBC 4.14 10^6/uL (3.93-5.22); RDW 17.2 % (11.7-14.6); RDW-SD 43.7 fL; WBC 9.65 10^3/uL (4.4-10.8)
[2021-04-27 12:14] LABS: Glucose,1 Hr (Glucola) 103 mg/dL (80-140)
[2021-04-27 13:10] LABS: Uric Acid 2.7 mg/dL (2.6-6.0)
[2021-04-27 13:15] LABS: ALT 15 U/L (14-59); AST 11 U/L (15-37); Albumin 2.8 g/dL (3.4-5.0); Alkaline Phosphatase 52 U/L (46-116); Anion Gap 9.7 mmol/L (3-11); BUN 12 mg/dL (7-18); Bilirubin, Total 0.2 mg/dL (0.2-1.0); CO2 24.3 mmol/L (21.0-32.0); CREATININE 0.6 mg/dL (0.55-1.02); Calcium 8.4 mg/dL (8.5-10.1); Chloride 105 mmol/L (98-107); Glucose 96 mg/dL (74-106); Potassium 3.7 mmol/L (3.5-5.1); Sodium 139 mmol/L (136-145); Total Protein 6.4 g/dL (6.4-8.2)
== END 2021-04-27 03:45 | disposition home or self-care (01) ==
LOC: LBO 03:44
PROVIDERS: PCP Nurse Practitioner Adult Health; Visit Provider Obstetrics & Gynecology Gynecology
DX: O99.019 Anemia complicating pregnancy, unspecified trimester; R03.0 Elevated blood-pressure reading, without diagnosis of hypertension
CPT/HCPCS: 36415; 80053; 82950; 85027; 84550

== ENCOUNTER 2021-04-27 16:33 | Outpatient (REF) | payer BC, SELFPAY ==
[2021-04-27 18:02] LABS: PROTEIN 18.7 mg/dL
[2021-04-27 18:11] LABS: COMMENT (LAB VIEW ONLY) 119.83 mg/dL; Prot/Crea Ur Ratio 0.15
== END 2021-04-27 16:34 | disposition home or self-care (01) ==
LOC: LBN 16:33
PROVIDERS: PCP Nurse Practitioner Adult Health; Visit Provider Obstetrics & Gynecology Gynecology
DX: O99.013 Anemia complicating pregnancy, third trimester (principal); R03.0 Elevated blood-pressure reading, without diagnosis of hypertension
CPT/HCPCS: 82565; 84156

== ENCOUNTER 2021-05-04 01:50 | Outpatient (RCR) | payer BC, SELFPAY ==
[2021-05-04] MEDS: Normal Saline Flush 10 ML SYR IVP (07:19)
[2021-05-04] MEDS: IRON SUCROSE COMPLEX 200 MG in Normal Saline 100 ML 165 MG IVPB (07:26)
== END 2021-05-05 23:59 | disposition home or self-care (01) ==
LOC: INF 01:50
PROVIDERS: PCP Nurse Practitioner Adult Health; Visit Provider Obstetrics & Gynecology Gynecology
DX: O99.012 Anemia complicating pregnancy, second trimester (principal); D64.9 Anemia, unspecified
CPT/HCPCS: 96365; J1756

== ENCOUNTER 2021-05-25 00:40 | Outpatient (CLI) | payer BC, SELFPAY ==
[2021-05-25 01:09] VITALS: BP 135/89; PULSE 71
[2021-05-25 01:11] VITALS: BP 135/89; PULSE 71; TEMP 36.9
--- NOTE | 2021-05-25 10:48 | W.OBNST ---
Date of service: 05/25/21 Time of Service: 10:48 NST Evaluation Reason for NST Reasons for Nonstress Test: CHRONIC HYPERTENSION Gestational Age Gestational Age in Weeks and Days: 31 Weeks and 6Days Test and Monitor Explained Test/Monitor Explained: Test Explained, Monitor Explained and Patient Verbalized Understanding Vital Signs Blood Pressure: 135/89 Pulse: 71 Temperature: 98.4 F NST Information Date on Monitor: 05/25/21 Time on Monitor: 01:08 Date off Monitor: 05/25/21 Time off Monitor: 07:27 Total Time on Monitor: 379 NST Interventions: PO Hydration NST Evaluation Patient States Movement: Present FHR Baseline: 120 Variability: Moderate 6-25 bpm Accelerations: 15x15 Decelerations: None NST Results: Reactive Note NST Note Note: P1 @32wks with CHTN, currently managed w/out meds. Reactive NST NST Reviewed and Verified by: Maria E Kolb
[2021-05-25 10:49] VITALS: BP 135/89; PULSE 71; TEMP 36.9
== END 2021-05-25 01:46 | disposition home or self-care (01) ==
LOC: BCD 00:43 → OBS 00:57
PROVIDERS: PCP Nurse Practitioner Adult Health; Visit Provider Obstetrics & Gynecology
DX: O10.013 Pre-existing essential hypertension complicating pregnancy, third trimester (principal); Z3A.31 31 weeks gestation of pregnancy
CPT/HCPCS: 59025

== ENCOUNTER 2021-05-28 22:39 | Outpatient (CLI) | payer BC, SELFPAY ==
[2021-05-28 23:02] VITALS: BP 142/88; PULSE 71; RESP 18; TEMP 36.6; O2SAT 99
[2021-05-28 23:35] VITALS: BP 142/88; PULSE 71; TEMP 36.8
--- NOTE | 2021-06-03 08:12 | W.OBNST ---
Date of service: 06/03/21 Time of Service: 08:13 NST Evaluation Reason for NST Reasons for Nonstress Test: GESTATIONAL HYPERTENSION Gestational Age Gestational Age in Weeks and Days: 33 Weeks and 0Days Test and Monitor Explained Test/Monitor Explained: Test Explained, Monitor Explained and Patient Verbalized Understanding Vital Signs Blood Pressure: 142/88 Pulse: 71 Temperature: 98.2 F NST Information Date on Monitor: 05/28/21 Time on Monitor: 23:05 Date off Monitor: 05/28/21 Time off Monitor: 23:35 Total Time on Monitor: 30 NST Interventions: None Contraction Frequency: 0 NST Evaluation Patient States Movement: Present FHR Baseline: 125 Variability: Moderate 6-25 bpm Accelerations: 15x15 Decelerations: None NST Results: Reactive Note NST Note Note: reassuring surveillance NST Reviewed and Verified by: Kamla Hawkins
[2021-06-03 08:13] VITALS: BP 142/88; PULSE 71; TEMP 36.8
== END 2021-05-29 00:10 ==
LOC: BCD 22:42 → OBS 22:50
PROVIDERS: PCP Nurse Practitioner Adult Health; Visit Provider Obstetrics & Gynecology Gynecology
DX: O13.3 Gestational [pregnancy-induced] hypertension without significant proteinuria, third trimester (principal); Z3A.33 33 weeks gestation of pregnancy
CPT/HCPCS: 59025

== ENCOUNTER 2021-05-31 09:50 | Outpatient (CLI) | payer BC, SELFPAY ==
[2021-05-31] VITALS (12 sets, daily range): BP systolic 132–151; BP diastolic 84–97; PULSE 75–91; TEMP 36.9
[2021-05-31 10:48] LABS: HCT 32.9 % (36.0-46.0); HGB 9.9 g/dL (11.2-15.7); MCH 23.7 pg (27.0-33.0); MCHC 30.1 % (32.0-36.0); MCV 78.9 fL (80-95); MPV 9.3 fL (8.0-11.0); Platelet Count 213 10^3/uL (130-400); RBC 4.17 10^6/uL (3.93-5.22); RDW 24.5 % (11.7-14.6); RDW-SD 68.8 fL; WBC 8.54 10^3/uL (4.4-10.8)
[2021-05-31 11:01] LABS: ALT 12 U/L (14-59); AST 12 U/L (15-37); Albumin 2.6 g/dL (3.4-5.0); Alkaline Phosphatase 64 U/L (46-116); Anion Gap 8.9 mmol/L (3-11); BUN 8 mg/dL (7-18); Bilirubin, Total 0.2 mg/dL (0.2-1.0); CO2 24.1 mmol/L (21.0-32.0); CREATININE 0.6 mg/dL (0.55-1.02); Calcium 8.1 mg/dL (8.5-10.1); Chloride 103 mmol/L (98-107); Glucose 88 mg/dL (74-106); Potassium 3.7 mmol/L (3.5-5.1); Sodium 136 mmol/L (136-145); Total Protein 6.3 g/dL (6.4-8.2)
[2021-05-31] MEDS: Butalbital/Acetaminophen/Caffeine 50/325/40 TAB PO (11:16)
[2021-05-31 11:32] LABS: COMMENT (LAB VIEW ONLY) 117.27 mg/dL; PROTEIN 15.5 mg/dL; Prot/Crea Ur Ratio 0.13
--- NOTE | 2021-05-31 13:24 | W.OBNST ---
Date of service: 05/31/21 Time of Service: 13:24 NST Evaluation Reason for NST Reasons for Nonstress Test: OTHER, SEE COMMENT Reason for NST Other: Elevated BP at home Gestational Age Gestational Age in Weeks and Days: 32 Weeks and 5Days Test and Monitor Explained Test/Monitor Explained: Test Explained, Monitor Explained and Patient Verbalized Understanding Vital Signs Blood Pressure: 151/97 Pulse: 80 Temperature: 98.4 F Urine Results Urine Protein: Positive Urine Ketones: Negative Urine Glucose: Negative Urine Blood: Negative NST Information Date on Monitor: 05/31/21 Time on Monitor: 10:08 NST Interventions: PO Hydration Contraction Frequency: irritability, no ctx NST Evaluation Patient States Movement: Present FHR Baseline: 125 Variability: Moderate 6-25 bpm Accelerations: 15x15 Decelerations: None NST Results: Reactive Note NST Note Note: Category 1 strip, reactive NST. BP elevated. Labs normal. Off work. Add PO Labetalol. Steroids if elevated protein developes NST Reviewed and Verified by: Rosa Anderson
--- NOTE | 2021-05-31 13:26 | W.PM.PROGNOT ---
Date of Service Date of service: 05/31/21 Time of Service: 13:26 Subjective Subjective Interval history since last seen: Patient presented to the center with with cephalgia and elevated blood pressure at 32 weeks and 5 days. She has a reactive nonstress test with category 1 strip. Laboratory studies are normal. She does have mildly elevated blood pressures with diastolics of 90s. For this, she was started on labetalol 100 mg twice daily. She will be taken off work. She will have twice with nonstress test with weekly JOHNNY weekly visits. She will be scheduled for her repeat section at 37 weeks. Objective Last Vital Signs Pulse 91 H 05/31/21 13:05 BP 143/92 H 05/31/21 13:05 Laboratory Results - last 24 hr 05/31/21 05/31/21 05/31/21 10:05 10:35 10:35 WBC 8.54 RBC 4.17 Hgb 9.9 L Hct 32.9 L MCV 78.9 L MCH 23.7 L MCHC 30.1 L RDW 24.5 H Plt Count 213 MPV 9.3 Sodium 136 Potassium 3.7 Chloride 103 Carbon Dioxide 24.1 Anion Gap 8.9 BUN 8 Creatinine 0.6 Estimated GFR/1.73 m2 >= 60.00 Glucose 88 Calcium 8.1 L Total Bilirubin 0.2 AST 12 L ALT 12 L Alkaline Phosphatase 64 Total Protein 6.3 L Albumin 2.6 L Ur Random Creatinine 117.27 U Random Total Protein 15.5 U Jackson Prot/Creat Ratio 0.13 Patient ABO/Rh Antibody Screen 05/31/21 10:35 WBC RBC Hgb Hct MCV MCH MCHC RDW Plt Count MPV Sodium Potassium Chloride Carbon Dioxide Anion Gap BUN Creatinine Estimated GFR/1.73 m2 Glucose Calcium Total Bilirubin AST ALT Alkaline Phosphatase Total Protein Albumin Ur Random Creatinine U Random Total Protein U Jackson Prot/Creat Ratio Patient ABO/Rh A Positive Antibody Screen NEGATIVE
== END 2021-05-31 13:30 | disposition home or self-care (01) ==
LOC: BCD 09:51 → OBS 09:58
PROVIDERS: PCP Nurse Practitioner Adult Health; Visit Provider Obstetrics & Gynecology
DX: O26.893 Other specified pregnancy related conditions, third trimester (principal); R03.0 Elevated blood-pressure reading, without diagnosis of hypertension; O12.13 Gestational proteinuria, third trimester; Z3A.32 32 weeks gestation of pregnancy
CPT/HCPCS: 59025; 80053; 85027; 86850; 86900; 86901; 82565; 84156

== ENCOUNTER 2021-06-02 07:51 | Outpatient (CLI) | payer BC, SELFPAY ==
[2021-06-02 10:01] VITALS: BP 133/87; PULSE 86; TEMP 36.8
[2021-06-02 10:35] VITALS: BP 133/87; PULSE 86; TEMP 36.8
--- NOTE | 2021-06-02 10:35 | W.OBNST ---
Date of service: 06/02/21 Time of Service: 10:35 NST Evaluation Reason for NST Reasons for Nonstress Test: GESTATIONAL HYPERTENSION Gestational Age Gestational Age in Weeks and Days: 33 Weeks and 0Days Test and Monitor Explained Test/Monitor Explained: Test Explained, Monitor Explained and Patient Verbalized Understanding Vital Signs Blood Pressure: 133/87 Pulse: 86 Temperature: 98.2 F NST Information Date on Monitor: 06/02/21 Time on Monitor: 10:02 Date off Monitor: 06/02/21 Time off Monitor: 10:22 Total Time on Monitor: 20 NST Interventions: PO Hydration NST Evaluation Patient States Movement: Present FHR Baseline: 135 Variability: Moderate 6-25 bpm Accelerations: 15x15 Decelerations: None NST Results: Reactive Note NST Note Note: Patient seen today on the center for nonstress test due to chronic hypertension on labetalol. She has a category 1, reactive nonstress test. She has no contractions present. Blood pressure was reviewed and is in reasonably good control in the 130s over 80s. She will be seen for nonstress testing on Tuesday. Her repeat is scheduled at 37 weeks and 1 day NST Reviewed and Verified by: Rosa Anderson
== END 2021-06-02 10:30 | disposition home or self-care (01) ==
LOC: BCD 07:52 → OBS 09:56
PROVIDERS: PCP Nurse Practitioner Adult Health; Visit Provider Obstetrics & Gynecology
DX: O10.013 Pre-existing essential hypertension complicating pregnancy, third trimester (principal); Z3A.33 33 weeks gestation of pregnancy
CPT/HCPCS: 59025

== ENCOUNTER 2021-06-03 00:35 | Outpatient (RCR) | payer BC, SELFPAY ==
[2021-05-11] MEDS: Normal Saline Flush 10 ML SYR IVP ×2 (07:02→07:12)
[2021-05-11] MEDS: IRON SUCROSE COMPLEX 200 MG in Normal Saline 100 ML 440 MG IVPB (07:11)
[2021-05-20 07:36] LABS: HGB 9.6 g/dL (11.2-15.7)
[2021-05-20] MEDS: IRON SUCROSE COMPLEX 200 MG in Normal Saline 100 ML 440 MG IVPB (08:08)
[2021-05-20] MEDS: Normal Saline Flush 10 ML SYR IVP (08:08)
[2021-05-25 07:38] LABS: HGB 9.6 g/dL (11.2-15.7)
[2021-05-25] MEDS: Normal Saline Flush 10 ML SYR IVP (07:38)
[2021-05-25] MEDS: IRON SUCROSE COMPLEX 200 MG in Normal Saline 100 ML 147 MG IVPB (08:11)
[2021-06-03] MEDS: Normal Saline Flush 10 ML SYR IVP (07:58)
[2021-06-03] MEDS: IRON SUCROSE COMPLEX 200 MG in Normal Saline 100 ML 440 MG IVPB (07:58)
== END 2021-06-05 23:59 | disposition home or self-care (01) ==
LOC: INF 00:35
PROVIDERS: PCP Nurse Practitioner Adult Health; Visit Provider Obstetrics & Gynecology Gynecology
DX: O99.012 Anemia complicating pregnancy, second trimester (principal); D64.9 Anemia, unspecified
CPT/HCPCS: 36415; 96365; 85018; J1756

== ENCOUNTER 2021-06-05 08:41 | Outpatient (CLI) | payer BC, SELFPAY ==
[2021-06-05 09:59] VITALS: BP 138/84; PULSE 82; TEMP 36.8
[2021-06-05 11:46] VITALS: BP 138/84; PULSE 82; TEMP 36.8
--- NOTE | 2021-06-05 11:46 | W.OBNST ---
Date of service: 06/05/21 Time of Service: 11:46 NST Evaluation Reason for NST Reasons for Nonstress Test: GESTATIONAL HYPERTENSION Gestational Age Gestational Age in Weeks and Days: 33 Weeks and 3Days Test and Monitor Explained Test/Monitor Explained: Test Explained, Monitor Explained and Patient Verbalized Understanding Vital Signs Blood Pressure: 138/84 Pulse: 82 Temperature: 98.2 F NST Information Date on Monitor: 06/05/21 Time on Monitor: 10:03 Date off Monitor: 06/05/21 NST Interventions: PO Hydration NST Evaluation Patient States Movement: Present FHR Baseline: 125 Variability: Moderate 6-25 bpm Accelerations: 15x15 Decelerations: None NST Results: Reactive Note NST Note Note: Patient has follow-up NST and a [facility] office visit next week. NST Reviewed and Verified by: Kamla Hawkins
== END 2021-06-05 11:15 | disposition home or self-care (01) ==
LOC: BCD 08:41 → NUR 09:57
PROVIDERS: PCP Nurse Practitioner Adult Health; Visit Provider Obstetrics & Gynecology Gynecology
DX: O13.3 Gestational [pregnancy-induced] hypertension without significant proteinuria, third trimester (principal); Z3A.33 33 weeks gestation of pregnancy
CPT/HCPCS: 59025

== ENCOUNTER 2021-06-08 08:33 | Outpatient (CLI) | payer BC, SELFPAY ==
[2021-06-08 10:06] VITALS: BP 135/88; PULSE 85; TEMP 37.1
[2021-06-08 10:23] VITALS: BP 135/88; PULSE 85
[2021-06-08 10:47] VITALS: BP 135/88; PULSE 85; TEMP 37.1
--- NOTE | 2021-06-08 10:47 | W.OBNST ---
Date of service: 06/08/21 Time of Service: 10:47 NST Evaluation Reason for NST Reasons for Nonstress Test: GESTATIONAL HYPERTENSION Gestational Age Gestational Age in Weeks and Days: 33 Weeks and 6Days Test and Monitor Explained Test/Monitor Explained: Test Explained, Monitor Explained and Patient Verbalized Understanding Vital Signs Blood Pressure: 135/88 Pulse: 85 Temperature: 98.8 F NST Information Date on Monitor: 06/08/21 Time on Monitor: 10:09 Date off Monitor: 06/08/21 Time off Monitor: 10:32 Total Time on Monitor: 23 NST Interventions: PO Hydration NST Evaluation Patient States Movement: Present FHR Baseline: 130 Variability: Moderate 6-25 bpm Accelerations: 15x15 Decelerations: None NST Results: Reactive Note NST Note Note: NSTs performed on the center due to chronic hypertension. She is currently using labetalol 100 mg twice daily. Blood pressure is reasonably stable at 135/88. She is now off work and in surveillance. She has good ultrasound scheduled on . She is currently asymptomatic. Her NST is category 1 strip with a reactive nonstress test. She will continue to monitor blood pressures and rest at home. She will be in close surveillance. Follow-up as scheduled on , sooner if needed NST Reviewed and Verified by: Rosa Anderson
== END 2021-06-08 10:35 | disposition home or self-care (01) ==
LOC: BCD 08:37 → OBS 10:04
PROVIDERS: PCP Nurse Practitioner Adult Health; Visit Provider Obstetrics & Gynecology
DX: O10.13 Pre-existing hypertensive heart disease complicating the puerperium (principal); Z3A.33 33 weeks gestation of pregnancy
CPT/HCPCS: 59025

== ENCOUNTER 2021-06-11 02:43 | Outpatient (CLI) | payer BC, SELFPAY ==
--- NOTE | 2021-06-11 07:15 | DI.US_ITS ---
Exam(s) US OB JOHNNY WEIGHT EXAM: US OB JOHNNY WEIGHT CLINICAL HISTORY: evaluate growth,UTERINE FIBROID,HYPERTENSION,Z34.83,R03.0. TECHNIQUE: Transabdominal obstetrical ultrasound performed. COMPARISON: US US OB JOHNNY WEIGHT from 04/20/2021 FINDINGS: Transabdominal obstetrical ultrasound performed. FINDINGS: Number of fetuses: One. position: Breech. Placental location: There is a grade 1 anterior placenta. No evidence of previa. Uterus: There again seen multiple uterine fibroids. The largest measures 9.9 x 6.8 x 9.5 cm. It is located in the anterior and fundal region of the uterus. BIOMETRIC DATA: BPD: 83 mm = 33 weeks 1 day HC: 309 mm = 34 weeks 4 days AC: 298 mm = 33 weeks 6 days FL: 64 mm = 33 weeks 0 days EFW: 2234 grms 25% Composite Age: 33 weeks 5 days EDC: 07/25/2021 Heart Rate: 131BPM Amniotic fluid index: 13.9 cm. Visually, amount of fluid is within normal limits. IMPRESSION: 1. Single live intrauterine gestation as above. 2. Estimated weight is 2234gms. The fetus now measures in the 25th percentile on the Hadlock s elsi compared with 51st percentile on the prior examination. 3. Amniotic fluid index is 13.9 cm. Visually within normal limits. 4. Multiple uterine fibroids are again seen. The largest now measures 9.9 x 6.8 x 9.5 cm. DATA REPOSITORY:
== END 2021-06-11 03:03 ==
PROVIDERS: PCP Nurse Practitioner Adult Health; Visit Provider Obstetrics & Gynecology Gynecology
DX: D25.9 Leiomyoma of uterus, unspecified (principal); R03.0 Elevated blood-pressure reading, without diagnosis of hypertension; Z34.83 Encounter for supervision of other normal pregnancy, third trimester
CPT/HCPCS: 76816

== ENCOUNTER 2021-06-11 07:21 | Outpatient (CLI) | payer BC, SELFPAY ==
[2021-06-11 10:13] VITALS: BP 131/81; PULSE 83; TEMP 36.9
[2021-06-11 10:20] VITALS: BP 131/81; PULSE 83
--- NOTE | 2021-06-11 10:48 | W.OBNST ---
Date of service: 06/11/21 Time of Service: 10:48 NST Evaluation Reason for NST Reasons for Nonstress Test: GESTATIONAL HYPERTENSION Gestational Age Gestational Age in Weeks and Days: 34 Weeks and 2Days Test and Monitor Explained Test/Monitor Explained: Test Explained, Monitor Explained and Patient Verbalized Understanding Vital Signs Blood Pressure: 131/81 Pulse: 83 Temperature: 98.4 F Urine Results Urine Protein: Positive Urine Ketones: Negative Urine Glucose: Negative Urine Blood: Negative NST Information Date on Monitor: 06/11/21 Time on Monitor: 10:08 Date off Monitor: 06/11/21 Time off Monitor: 10:33 Total Time on Monitor: 25 NST Interventions: PO Hydration NST Evaluation Patient States Movement: Present FHR Baseline: 130 Variability: Moderate 6-25 bpm Accelerations: 15x15 Decelerations: None NST Results: Reactive Note NST Note Note: Patient seen on the center today for surveillance. NST reactive. Category 1 strip. Blood pressure stable at 131/81. Ultrasound scheduled for this morning. Has visit in women[facility] as well today. Continue surveillance. NST Reviewed and Verified by: Rosa Anderson
[2021-06-11 10:49] VITALS: BP 131/81; PULSE 83; TEMP 36.9
[2021-06-11 16:23] VITALS: BP 129/75; PULSE 95
== END 2021-06-11 10:40 | disposition home or self-care (01) ==
LOC: BCD 07:25 → OBS 10:08
PROVIDERS: PCP Nurse Practitioner Adult Health; Visit Provider Obstetrics & Gynecology
DX: O13.3 Gestational [pregnancy-induced] hypertension without significant proteinuria, third trimester (principal); Z3A.34 34 weeks gestation of pregnancy
CPT/HCPCS: 59025

== ENCOUNTER 2021-06-14 08:52 | Outpatient (CLI) | payer BC, SELFPAY ==
[2021-06-14 13:03] VITALS: BP 142/88; PULSE 84; TEMP 36.9
[2021-06-14 13:22] VITALS: BP 147/92; PULSE 84
[2021-06-14 13:36] VITALS: BP 142/88; PULSE 80
--- NOTE | 2021-06-15 09:10 | W.OBNST ---
Date of service: 06/15/21 Time of Service: 09:10 NST Evaluation Reason for NST Reasons for Nonstress Test: GESTATIONAL HYPERTENSION Gestational Age Gestational Age in Weeks and Days: 34 Weeks and 6Days Test and Monitor Explained Test/Monitor Explained: Test Explained, Monitor Explained and Patient Verbalized Understanding Vital Signs Blood Pressure: 142/88 Pulse: 84 Temperature: 98.4 F NST Information Date on Monitor: 06/14/21 Time on Monitor: 13:05 Date off Monitor: 06/14/21 NST Interventions: PO Hydration NST Evaluation Patient States Movement: Present FHR Baseline: 135 Variability: Moderate 6-25 bpm Accelerations: 15x15 Decelerations: None NST Results: Reactive Note NST Note Note: Patient seen for surveillance due to chronic hypertension. She has a reactive, category 1 strip. Her labetalol was increased today to 200 mg twice daily. She will continue with twice weekly surveillance. Scheduled follow-up as documented NST Reviewed and Verified by: Rosa Anderson
[2021-06-15 09:11] VITALS: BP 142/88; PULSE 84; TEMP 36.9
== END 2021-06-14 13:45 | disposition home or self-care (01) ==
LOC: BCD 08:53 → OBS 13:02
PROVIDERS: PCP Nurse Practitioner Adult Health; Visit Provider Obstetrics & Gynecology
DX: O13.3 Gestational [pregnancy-induced] hypertension without significant proteinuria, third trimester (principal); Z3A.34 34 weeks gestation of pregnancy
CPT/HCPCS: 59025

== ENCOUNTER 2021-06-18 16:45 | Inpatient (IN) | payer BC, SELFPAY ==
[2021-06-18] VITALS (12 sets, daily range): BP systolic 140–167; BP diastolic 84–99; PULSE 78–86; RESP 16–18; TEMP 36.8–36.9
--- NOTE | 2021-06-18 15:18 | W.OBNST ---
NST Evaluation Reason for NST Reasons for Nonstress Test: GESTATIONAL HYPERTENSION Gestational Age Gestational Age in Weeks and Days: 35 Weeks and 2Days Test and Monitor Explained Test/Monitor Explained: Test Explained, Monitor Explained and Patient Verbalized Understanding Vital Signs Blood Pressure: 150/92 Pulse: 83 Temperature: 98.2 F Urine Results Urine Protein: Negative Urine Ketones: Negative Urine Glucose: Negative Urine Blood: Negative NST Information Time on Monitor: 14:42 NST Interventions: PO Hydration
[2021-06-18 15:28] LABS: HCT 35.4 % (36.0-46.0); HGB 10.9 g/dL (11.2-15.7); MCH 24.5 pg (27.0-33.0); MCHC 30.8 % (32.0-36.0); MCV 79.6 fL (80-95); MPV 9.6 fL (8.0-11.0); Platelet Count 221 10^3/uL (130-400); RBC 4.45 10^6/uL (3.93-5.22); RDW 23.2 % (11.7-14.6); RDW-SD 66.5 fL; WBC 10.77 10^3/uL (4.4-10.8)
[2021-06-18] MEDS: Labetalol 100 MG TAB 300 MG PO ×2 (15:36→20:11)
[2021-06-18 15:47] LABS: ALT 16 U/L (14-59); AST 18 U/L (15-37); Albumin 2.8 g/dL (3.4-5.0); Alkaline Phosphatase 77 U/L (46-116); Anion Gap 12.2 mmol/L (3-11); BUN 7 mg/dL (7-18); Bilirubin, Total 0.3 mg/dL (0.2-1.0); CO2 21.8 mmol/L (21.0-32.0); CREATININE 0.6 mg/dL (0.55-1.02); Chloride 101 mmol/L (98-107); Glucose 102 mg/dL (74-106); Potassium 3.4 mmol/L (3.5-5.1); Sodium 135 mmol/L (136-145); Total Protein 6.7 g/dL (6.4-8.2)
[2021-06-18 15:49] LABS: COMMENT (LAB VIEW ONLY) 182.93 mg/dL
--- NOTE | 2021-06-18 16:20 | W.OBNST ---
Date of service: 06/18/21 Time of Service: 16:20 NST Evaluation Reason for NST Reasons for Nonstress Test: GESTATIONAL HYPERTENSION Gestational Age Gestational Age in Weeks and Days: 35 Weeks and 2Days Test and Monitor Explained Test/Monitor Explained: Test Explained, Monitor Explained and Patient Verbalized Understanding Vital Signs Blood Pressure: 150/92 Pulse: 83 Temperature: 98.2 F Urine Results Urine Protein: Negative Urine Ketones: Negative Urine Glucose: Negative Urine Blood: Negative NST Information Date on Monitor: 06/18/21 Time on Monitor: 14:42 Date off Monitor: 06/18/21 Time off Monitor: 15:20 Total Time on Monitor: 38 NST Interventions: PO Hydration NST Evaluation Patient States Movement: Present FHR Baseline: 135 Variability: Moderate 6-25 bpm Accelerations: 15x15 Decelerations: None NST Results: Reactive Note NST Note Note: Patient seen on the center for routine surveillance due to gestational hypertension. Today her blood pressure is noted to be elevated due to the 90s. She does have reactive category 1 strip with occasional irregular tractions. Laboratory studies were performed including CBC and a CMP along with a urine protein creatinine ratio just slightly elevated at 0.3 NST Reviewed and Verified by: Rosa Anderson
--- NOTE | 2021-06-18 16:52 | HPE_ITS ---
Date of service: 06/18/21 Time of Service: 16:54 Assessment and Plan Assessment and plan (1) HRP (high risk ): Status: Acute Assessment and plan: Patient is a 25-year-old female 2 para 1 at 35 weeks and 2 days with chronic hypertension and superimposed preeclampsia with mild features. She does have a mildly elevated urine protein creatinine ratio today. She has been on oral labetalol at home. At this point, due to the change in her protein creatinine ratio, will give steroids, Celestone, 12 mg IM today, tomorrow, with the intention of delivery on Tuesday. If she has a change in clinical status, or unstable blood pressures, delivery may be warranted sooner with the study of magnesium sulfate and IV antihypertensives (2) Chronic hypertension: Status: Acute Assessment and plan: Continue with labetalol, 300 mg twice daily. Blood pressures daily 2 to 4 hours. IV antihypertensives for blood pressures greater than 160/95. (3) Pre-eclampsia added to pre-existing hypertension: Status: Acute (4) Uterine fibroid: Status: Acute Qualifiers: Uterine leiomyoma location: unspecified location Qualified Code(s): D25.9 - Leiomyoma of uterus, unspecified (5) History of delivery: Status: Resolved Assessment and plan: Delivery mode will be via section scheduled on Tuesday, if not sooner if needed. (6) BMI 31.0-31.9,adult: Status: Acute OB-HPI Labor/Delivery History of Present Illness Reason for Visit: Chronic HTN with pre-eclampsia Chief Complaint: Signs/Symptoms Gestational HTN (Mild preeclampsia superimposed on chronic hypertension) , Associated Signs and Symptoms of GestationalHTN: Elevated blood pressure, elevated protein creatinine ratio ; Other. KAVON Calculator Estimated Delivery Date Method Current WG Current Estimate 07/21/21 Ultrasound #1 35w 2d Other Estimates 07/14/21 LMP (Certain) 36w 2d History of Present Expected Delivery Route/Plan Repeat C/S, short interval. not a candidate - FOB/ - Raffi Swanson - autism spectrum/ADHD Does not want to know gender Repeat c/s scheduled for 07/01/21. Specific Issues/Plan 1. Closely spaced pregnancies: will have scheduled repeat u/s. 2. Hyperemesis. Rx with Ondansetron, Compazine/Reglan caused SE. 04/27/21. takes daily in 3rd trimester. 3. Constipation 2/2 Ondansetron. No relief with OTC laxatives and bulking agents. 4. BMI 31- early glucola and 28w result normal. 5. 04/27/21Anemia: Hemoglobin 8.5 at 28 weeks. Iron infusions ordered on a weekly basis until hemoglobin above 10. Intolerant of PO Iron supplements 6. Multiple fibroids- Anterior/fundal. Noted on 2nd trimester u/s 10/02/20: [id number]. 03/12/21: [id number]. 03/12/21: [id number] 7. [place] result=low prob x3, gender inconclusive. CF and SMA previously neg. Declines AFP single marker. 8. Migraines, has been taking Excedrin and tylenol. 01/20.Neuro consult declined. 03/26/21 Magnesium 400mg BID 9. GHTN: labs wnl 04/27 -NSTs 2x/w beginning 32w. Off work -Deliver 37- section scheduled 07/01/21. -Growth sono 28w: 51st percentile. Nl JOHNNY. -Urine dip with each visit. On labetalol, 100 mg twice daily Narrative: Patient is today 35 weeks and 2 days. She has been in surveillance for chronic hypertension. She has been on oral labetalol. She is seen today for surveillance with a category 1, reactive and NST this plan was discussed. Blood pressures were noted to be elevated in the 150s over 90s. She did have an increase in her dose of labetalol to 300 mg given once now and she will continue this dose twice daily. Laboratory studies were performed which showed a normal CBC and CMP. She was noted to have an elevated urine protein creatinine ratio at 03. In light of the fact that she is 35 weeks and 2 days with a previous section with a short interval conception. And known uterine fibroid, plan will be to move towards delivery as long as patient's blood pressure remained stable. We will attempt to give 1 course of steroids, first today, second dose tomorrow, scheduled on Tuesday. If her blood pressures remain elevated, or she has a change in clinical status, we would proceed with section sooner. With the patient,, and Dr. Hawkins covering this weekend. Review of Systems All systems reviewed & are unremarkable except as noted in HPI and below Constitutional Constitutional: Reports as per HPI Comments: Patient denies headache, visual changes, epigastric pain. She has mild nausea which is persistent throughout her . She has no signs or symptoms of COVID. Eyes Eyes: Reports system reviewed and no additional complaints, except as documented Cardiovascular Cardiovascular: Reports system reviewed and no additional complaints, except as documented Genitourinary Genitourinary: Reports system reviewed and no additional complaints, except as documented Integumentary/Breasts Skin/Breast: Reports system reviewed and no additional complaints, except as documented Endocrine Endocrine: Reports system reviewed and no additional complaints, except as documented PFSH All Active Problems (Updated 06/18/21 @ 16:59 by Rosa Anderson DO) Pre-eclampsia added to pre-existing hypertension (Acute) HRP (high risk ) (Acute) Chronic hypertension (Acute) Encounter for supervision of other normal , third trimester (Acute) Elevated BP without diagnosis of hypertension (Acute) Encounter for supervision of other normal , second trimester (Acute) Anemia affecting (Acute) (Acute) Early stage of (Acute) Hyperemesis gravidarum (Acute) rx for ondansetron 12/01/20. Uterine fibroid (Acute) BMI 31.0-31.9,adult (Acute) Sleep disturbance (Acute) works night shifts H/O eczema (Chronic) dishydrotic, periorbital Derm in [place] [facility] Medical History (Updated 06/18/21 @ 16:59 by Rosa Anderson DO) History of migraine Surgical History (Updated 09/02/20 @ 21:17 by Kamla Hawkins MD) Hx of section Family History (Updated 12/23/20 @ 13:29 by Meri Mccann CNM) Father , leukemia Leukemia Mother Anxiety Arthritis Depression Maternal Grandmother Arthritis Hypertension Paternal Grandfather No problems noted. Paternal Grandmother Diabetes Hypertension Hyperlipidemia Brother Asthma Paternal Aunt BRCA positive BRCA 2 positive Maternal Grandfather Heart disease Social History (Updated 12/16/20 @ 16:42 by Kamla Hawkins MD) Smoking/Tobacco Use Status: Never Smoking risk assessment performed?: Yes Alcohol Intake: current Alcohol Intake frequency: a few times a month Alcohol type: wine Drug use: Never Substance use type: does not use Adopted: No Foster care: No Household members: spouse, children, none and other Details: María Elena Barrett Housing: apartment Number of Children: 1 Communication Needs: None Education Level: college Details: BS, nursing 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, [employer] Sexually active: Yes Do you think of yourself as: straight/heterosexual Current gender identity: female What type of physical activity do you participate in: none Bella/Taoism: Voodoo Seatbelt use: always Drive intox or ride w/intox warehouse driver: No Working smoke detector in home: Yes Fire extinguisher in home: Yes Carbon monox detector in home: Yes Do you feel safe at home: Yes Do you feel safe in your relationship?: Yes Female Reproductive History Menstrual Age of Menarche: 12 control method: none History History 2 Para 1 Hx # Term Pregnancies 0 Multiple births 0 Hx # Pregnancies 0 Ectopic pregnancies 0 AB induced 0 Hx Number of Living Children 1 AB spontaneous 0 Past Pregnancies Del. Date GA/Weeks # Outcome Route Wgt Sex Labor Lgth Anesthes ia Location [facility] 07/11/20 37 No Successful 7 lb 0.7 oz Male regional [facility] Delivery Date: 07/11/20 Pain in labor due to fibroids. non-reassuring FHR remote from delivery. Mild wound dehiscience. Jesse. Group B Strep pos. Meri Mccann Meds Allergies and Home Medications Allergies Allergy/AdvReac Type Severity Reaction Status Date / Time ferrous fumarate Allergy Intermediate Facial rash Verified 06/11/21 11:28 [From 1 + Iron] folic acid Allergy Intermediate Facial rash Verified 06/11/21 11:28 [From 1 + Iron] vit,tx Allergy Intermediate Facial rash Verified 06/11/21 11:28 calc,iron,folic acd(less thn 1 mg) [From 1 + Iron] vitamins with Allergy Intermediate Facial rash Verified 06/11/21 11:28 calcium [From 1 + Iron] shellfish derived Allergy Throat Verified 06/11/21 11:28 Swlling, Itching diphenhydramine AdvReac Intermediate eczema Verified 06/11/21 11:28 [From Benadryl] acts up cocamidopropyl betaine AdvReac Skin Rash Verified 06/11/21 11:28 Home Medications Medication Instructions Recorded Confirmed Type [id number] 400 mcg-om3 35 mg-dha 25 1 tab PO DAILY tab 11/18/20 06/02/21 History mg-epa 5 mg-fish oil chewable tablet prochlorperazine 25 mg rectal 25 mg TN BID PRN #12 ea 12/09/20 06/11/21 Rx suppository ondansetron HCl 8 mg tablet 8 mg PO Q8H PRN #90 tab 12/16/20 06/11/21 Rx pantoprazole 40 mg tablet,delayed 40 mg PO DAILY #30 tab 12/23/20 06/02/21 Rx release magnesium 200 mg tablet 200 mg PO BID tab 04/13/21 06/11/21 History [id number] 1 cap PO Q4H PRN #20 cap 05/31/21 06/11/21 Rx labetalol 100 mg tablet 300 mg PO BID tab 06/18/21 History Exam Physical Exam Vital signs: Pulse BP 78 158/94 H 06/18/21 15:53 06/18/21 16:14 Detailed Labor and Delivery Exam Knox Score: Cervical Points Exam 0 1 2 3 Dilation Closed 1-2cm 3-4 cm 5-6cm Effacement 0-30% 40-50% 60-70% 80% Consistency Firm Medium Soft Station -3 -2 -1,0 +1,+2 Position Posterior Mid Anterior Fetus A Monitor Accelerations: 15 X 15 Monitor Decelerations: None Variability: Moderate (6-25 BPM) Presentation: Cephalic Categories: Category I Est. Weight: 5 lb 8 oz Assessment Note: Reactive NST, category 1 strip Detailed HEENT Exam Head: Present normocephalic and atraumatic Detailed Neck Exam Neck exam general surgery: Present supple and full ROM Respiratory Exam Respiratory Exam: Normal Cardiovascular Exam Cardiovascular Exam: Normal Abdominal Exam Abdominal Exam: Normal Detailed Extremities Exam Extremities: Absent cyanosis, clubbing, edema and calf tenderness Skin Exam Skin Exam: Normal Detailed Neurological Exam Neurological: Present alert, oriented X3, CN II-XII intact, normal reflexes, moving all extremities, normal tone and vision grossly intact; Absent sensory deficit and motor deficit DetailedPsychiatric Exam Psychiatric: Present normal affect and normal thought process Results Abnormal Lab Findings: Abnormal Labs 06/18/21 06/18/21 15:15 15:15 Hgb 10.9 L Hct 35.4 L MCV 79.6 L MCH 24.5 L MCHC 30.8 L RDW 23.2 H Sodium 135 L Potassium 3.4 L Anion Gap 12.2 H Albumin 2.8 L Risk Assessment Risk for Shoulder Dystocia Historical/Initial OB: POSITIVE FOR: Pre- BMI>30; NEGATIVE FOR: Pelvic Abnormality, Previous Shoulder Dystocia or Previous Macrosomia Increased Risk?: No Delivery Plan @ 36wks: KJ-repeat section Delivery Plan @ 40 wks: 07/10/20 Risk for Pre-Eclampsia Date Initiated/Initials: not indicated Yes, if one or more: NEGATIVE FOR: Hx Pre-E/Gest HTN, Chronic HTN, Multiple Gestation, Pre-gestational DM, Renal Disease, Systemic Lupus or APA Syndrome Yes, if 2 or more: POSITIVE FOR: BMI>30; NEGATIVE FOR: Nulliparity, Age>= 35 yrs, >10yr btwn pregnancies, ethinicty, Mother/Sister w/ Pre-E or Previous IUGR Risk for Post- Hemorrhage Initial: NEGATIVE FOR: Multiple Gestation, Previous PPH, Known Clotting Deficiency, Grand Multiparity or Anticoagulation Interventions: Patient will have a repeat section and has known fibroids, she will have IV and aggressive Counseled re: Active Management: Yes Date/Initials: 07/10/20 FREYA Risks Reviewed Risks Reviewed Upon Admission: Yes
[2021-06-18 16:59] LABS: Source Nasal/Nares
[2021-06-18] MEDS: Betamet Acet/Betamet Na Ph Inj. 30 MG/5 ML 12 MG IM (17:42)
[2021-06-18] MEDS: Normal Saline Flush 10 ML SYR IVP (18:30)
[2021-06-18 18:55] LABS: COVID-19 PCR Negative (Negative)
[2021-06-18] MEDS: Butalbital/Acetaminophen/Caffeine 50/325/40 TAB PO (23:15)
[2021-06-19] VITALS (7 sets, daily range): BP systolic 126–141; BP diastolic 76–84; PULSE 82–96; RESP 14–18; TEMP 36.6–36.9; O2SAT 99; BMI 32.8
[2021-06-19] MEDS: Ondansetron 4 MG TAB 8 MG PO ×2 (01:55→08:23)
[2021-06-19] MEDS: Normal Saline Flush 10 ML SYR IVP ×2 (06:20→20:15)
[2021-06-19 07:09] LABS: HCT 37.1 % (36.0-46.0); HGB 11.5 g/dL (11.2-15.7); MCH 24.6 pg (27.0-33.0); MCV 79.4 fL (80-95); MPV 10.3 fL (8.0-11.0); Platelet Count 239 10^3/uL (130-400); RBC 4.67 10^6/uL (3.93-5.22); RDW-SD 66.2 fL; WBC 13.77 10^3/uL (4.4-10.8)
[2021-06-19] MEDS: Pantoprazole 40 MG TABCR PO (08:13)
[2021-06-19] MEDS: Labetalol 100 MG TAB 300 MG PO ×2 (08:13→20:15)
--- NOTE | 2021-06-19 12:20 | ANES.PREOP_ITS ---
General Info Date of Service Date Performed: 06/19/21 Height: 5 ft 9 in Weight: 100.698 kg Body Mass Index (BMI): 32.8 Meds Allergies and Home Medications Allergies Allergy/AdvReac Type Severity Reaction Status Date / Time ferrous fumarate Allergy Intermediate Facial rash Verified 06/11/21 11:28 [From 1 + Iron] folic acid Allergy Intermediate Facial rash Verified 06/11/21 11:28 [From 1 + Iron] vit,tx Allergy Intermediate Facial rash Verified 06/11/21 11:28 calc,iron,folic acd(less thn 1 mg) [From 1 + Iron] vitamins with Allergy Intermediate Facial rash Verified 06/11/21 11:28 calcium [From 1 + Iron] shellfish derived Allergy Throat Verified 06/11/21 11:28 Swlling, Itching diphenhydramine AdvReac Intermediate eczema Verified 06/11/21 11:28 [From Benadryl] acts up cocamidopropyl betaine AdvReac Skin Rash Verified 06/11/21 11:28 Home Medication Medication Instructions Recorded [id number] 400 mcg-om3 35 mg-dha 25 1 tab PO DAILY tab 11/18/20 mg-epa 5 mg-fish oil chewable tablet prochlorperazine 25 mg rectal 25 mg HI BID PRN #12 ea 12/09/20 suppository ondansetron HCl 8 mg tablet 8 mg PO Q8H PRN #90 tab 12/16/20 pantoprazole 40 mg tablet,delayed 40 mg PO DAILY #30 tab 12/23/20 release magnesium 200 mg tablet 200 mg PO BID tab 04/13/21 [id number]-cod 1 cap PO Q4H PRN #20 cap 05/31/21 labetalol 100 mg tablet 300 mg PO BID tab 06/18/21 Current Visit Medications: Current Medications Generic Name Dose Route Start Last Admin Trade Name Freq PRN Reason Stop Dose Admin Acetaminophen/Butalbital/Caffeine 1 tab 06/18/21 22:54 06/18/21 23:15 Butalbital/Acetaminophen/Caffeine 50/325/40 Tab PO 1 tab Q4H PRN PRN Administration Betamethasone Acet/Betameth SodPhos 12 mg 06/19/21 16:52 Betamet Acet/Betamet Na Ph Inj. 30 Mg/5 Ml IM 06/19/21 16:53 NOW ONE Sodium Chloride 500 mls @ 0 mls/hr 06/18/21 17:14 Saline 500ml Bag IV PRN PRN As Directed IV Miscellaneous Supplies 1 each 06/18/21 17:15 Iv Access IV DIRECTED DAGMAR Labetalol HCl 300 mg 06/18/21 20:00 06/19/21 08:13 Labetalol 100 Mg Tab PO 300 mg BID DAGMAR Administration Ondansetron HCl 8 mg 06/18/21 22:54 06/19/21 08:23 Ondansetron 4 Mg Tab PO 8 mg Q8H PRN PRN Administration Pantoprazole Sodium 40 mg 06/19/21 08:30 06/19/21 08:13 Pantoprazole 40 Mg Tabcr PO 40 mg DAILY DAGMAR Administration Sodium Chloride 0 ml 06/18/21 17:14 06/19/21 06:20 Normal Saline Flush 10 Ml Syr IVP 10 ml PRN PRN Administration PFSH Active Problems Active Problems: Problem Status Onset Code Pre-eclampsia added to pre-existing hypertension O11.9 HRP (high risk ) O09.90 Chronic hypertension I10 Encounter for supervision of other normal , third trimester Z34.83 Elevated BP without diagnosis of hypertension R03.0 Encounter for supervision of other normal , second trimester Z34.82 Anemia affecting O99.019 Z34.90 Early stage of Z34.90 Hyperemesis gravidarum O21.0 Uterine fibroid D25.9 exam Z39.2 Counseling for control, natural family planning Z30.02 History of delivery Z98.891 BMI 31.0-31.9,adult Z68.31 Sleep disturbance G47.9 Sciatica M54.30 H/O eczema Z87.2 Medical History Medical History (Updated 06/18/21 @ 16:59 by Rosa Anderson DO) History of migraine Surgical History Surgical History (Updated 09/02/20 @ 21:17 by Kamla Hawkins MD) Hx of section Tobacco Smoking/Tobacco Use Status: Never Alcohol Alcohol Intake: current Alcohol intake frequency: a few times a month Alcohol type: wine Substance Use Substance use: Never Substance use type: does not use Prental History History 2 Para 1 Hx # Term Pregnancies 0 Multiple births 0 Hx # Pregnancies 0 Ectopic pregnancies 0 AB induced 0 Hx Number of Living Children 1 AB spontaneous 0 Past Pregnancies Del. Date GA/Weeks # Outcome Route Wgt Sex Labor Lgth Anesthes ia Location Prov Complic 07/11/20 37 No Successful 3194.991 g Male regional Kamla Hawkins Delivery Date: 07/11/20 Pain in labor due to fibroids. non-reassuring FHR remote from delivery. Mild wound dehiscience. Jesse. Group B Strep pos. Meri Mccann Vital Signs and Lab Results Vital Signs Most Recent Vital Signs in EMR: Most Recent Vital Signs Temp Pulse Resp BP 36.6 C 105 H 16 116/69 06/19/21 08:00 06/19/21 11:07 06/19/21 08:00 06/19/21 11:07 Lab Results Result Diagrams: 06/19/21 06:03 06/18/21 15:15 Blood Type / Crossmatch: Patient ABO/Rh A Positive 06/19/21 Antibody Screen NEGATIVE 06/19/21 Complete Blood Count: White Blood Count 13.77 10^3/uL (4.4-10.8) H 06/19/21 06:03 06/19/21 Red Blood Count 4.67 10^6/uL (3.93-5.22) 06/19/21 06:03 06/19/21 Hemoglobin 11.5 g/dL (11.2-15.7) 06/19/21 06:03 06/19/21 Hematocrit 37.1 % (36.0-46.0) 06/19/21 06:03 06/19/21 Platelet Count 239 10^3/uL (130-400) 06/19/21 06:03 06/19/21 Complete Metabolic Panel: Sodium Level 135 mmol/L (136-145) L 06/18/21 15:15 06/18/21 Potassium Level 3.4 mmol/L (3.5-5.1) L 06/18/21 15:15 06/18/21 Chloride Level 101 mmol/L (98-107) 06/18/21 15:15 06/18/21 Carbon Dioxide Level 21.8 mmol/L (21.0-32.0) 06/18/21 15:15 06/18/21 Blood Urea Nitrogen 7 mg/dL (7-18) 06/18/21 15:15 06/18/21 Creatinine 0.6 mg/dL (0.55-1.02) 06/18/21 15:15 06/18/21 Estimated GFR/1.73 m2 >= 60.00 (mL/min/1.73m2) 06/18/21 15:15 06/18/21 Calcium Level 9.0 mg/dL (8.5-10.1) 06/18/21 15:15 06/18/21 Albumin 2.8 g/dL (3.4-5.0) L 06/18/21 15:15 06/18/21 Glucose Level 102 mg/dL (74-106) 06/18/21 15:15 06/18/21 Liver Function Panel: Alanine Aminotransferase (ALT/SGPT) 16 U/L (14-59) 06/18/21 15:15 06/18/21 Aspartate Amino Transf (AST/SGOT) 18 U/L (15-37) 06/18/21 15:15 06/18/21 Coagulation Panel: No Data to Display Cardiac Panel: No Data to Display Arterial Blood Gas: 2 No Data to Display Venous Blood Gas: No Data to Display Pancreas Panel: No Data to Display Thyroid Panel: No Data to Display Infectious Disease: Coronavirus (COVID-19)(PCR) Negative (Negative) 06/18/21 16:45 06/18/21 Coronavirus 2019 Source Nasal/Nares 06/18/21 16:45 06/18/21 Blood Cultures: No Data to Display Toxicology Panel: No Data to Display Panel: No Data to Display Anesthesia Assessment and Plan Anesthesia History Personal History: PONV Family History: No Family History of Anesthesia Complications Exercise Tolerance Exercise Tolerance: Metabolic Equivalents>4 Pertinent Negatives Pertinent Negatives: No Major Cardiovascular Symptoms or Complaints and No Major Pulmonary Symptoms or Complaints Cardiac & Pulmonary Exam Cardiac Exam: Normal S1/S2 Heart Sounds Pulmonary Exam: Clear Bilateral Breath Sounds Implantable Cardiac Device Does patient have a Pacemaker or an ICD?: No Airway Exam Known Difficult Airway: No Mallampati Class: 1 Mouth Opening: Normal (> 3cm) Thyromental Distance: Greater than 3 cm Neck Range of Motion: Full ROM Neck Circumference: Normal Teeth Condition: Normal Dentition ASA Classification ASA Score: ASA 3 Emergency Case?: No NPO Status NPO Status: NPO Clears >2 hours, Solids >8 hours Status Status: Confirmed Anesthesia Plan Resuscitation Status: Full Code Anesthesia Technique: Spinal Anesthesia Airway Planned: Natural Airway Monitors Used: Standard Monitors Preoperative Comments:: 25 yo female for c section. Has had previous section. Currently 35 weeks 2 days with elevated BPs (preeclampsia on chronic HTN). She has known large uterine fibroid. Sig PMHx: HTN (currently getting labetalol), anemia (has been getting iron infusions). Previous anes: uneventful epidural placement (RICK @ 4 cm) to OR for failure to progress. epidural loaded with lidocaine 15 mL and required a significant amount of phen yl.
--- NOTE | 2021-06-19 12:58 | ANES.PREOP_ITS ---
General Info Date of Service Date Performed: 06/19/21 Height: 5 ft 9 in Weight: 100.698 kg Body Mass Index (BMI): 32.8 Meds Allergies and Home Medications Allergies Allergy/AdvReac Type Severity Reaction Status Date / Time ferrous fumarate Allergy Intermediate Facial rash Verified 06/11/21 11:28 [From 1 + Iron] folic acid Allergy Intermediate Facial rash Verified 06/11/21 11:28 [From 1 + Iron] vit,tx Allergy Intermediate Facial rash Verified 06/11/21 11:28 calc,iron,folic acd(less thn 1 mg) [From 1 + Iron] vitamins with Allergy Intermediate Facial rash Verified 06/11/21 11:28 calcium [From 1 + Iron] shellfish derived Allergy Throat Verified 06/11/21 11:28 Swlling, Itching diphenhydramine AdvReac Intermediate eczema Verified 06/11/21 11:28 [From Benadryl] acts up cocamidopropyl betaine AdvReac Skin Rash Verified 06/11/21 11:28 Home Medication Medication Instructions Recorded [id number] 400 mcg-om3 35 mg-dha 25 1 tab PO DAILY tab 11/18/20 mg-epa 5 mg-fish oil chewable tablet prochlorperazine 25 mg rectal 25 mg WA BID PRN #12 ea 12/09/20 suppository ondansetron HCl 8 mg tablet 8 mg PO Q8H PRN #90 tab 12/16/20 pantoprazole 40 mg tablet,delayed 40 mg PO DAILY #30 tab 12/23/20 release magnesium 200 mg tablet 200 mg PO BID tab 04/13/21 [id number] 1 cap PO Q4H PRN #20 cap 05/31/21 labetalol 100 mg tablet 300 mg PO BID tab 06/18/21 Current Visit Medications: Current Medications Generic Name Dose Route Start Last Admin Trade Name Freq PRN Reason Stop Dose Admin Acetaminophen/Butalbital/Caffeine 1 tab 06/18/21 22:54 06/18/21 23:15 Butalbital/Acetaminophen/Caffeine 50/325/40 Tab PO 1 tab Q4H PRN PRN Administration Betamethasone Acet/Betameth SodPhos 12 mg 06/19/21 16:52 Betamet Acet/Betamet Na Ph Inj. 30 Mg/5 Ml IM 06/19/21 16:53 NOW ONE Sodium Chloride 500 mls @ 0 mls/hr 06/18/21 17:14 Saline 500ml Bag IV PRN PRN As Directed IV Miscellaneous Supplies 1 each 06/18/21 17:15 Iv Access IV DIRECTED DAGMAR Labetalol HCl 300 mg 06/18/21 20:00 06/19/21 08:13 Labetalol 100 Mg Tab PO 300 mg BID DAGMAR Administration Ondansetron HCl 8 mg 06/18/21 22:54 06/19/21 08:23 Ondansetron 4 Mg Tab PO 8 mg Q8H PRN PRN Administration Pantoprazole Sodium 40 mg 06/19/21 08:30 06/19/21 08:13 Pantoprazole 40 Mg Tabcr PO 40 mg DAILY DAGMAR Administration Sodium Chloride 0 ml 06/18/21 17:14 06/19/21 06:20 Normal Saline Flush 10 Ml Syr IVP 10 ml PRN PRN Administration PFSH Active Problems Active Problems: Problem Status Onset Code Pre-eclampsia added to pre-existing hypertension O11.9 HRP (high risk ) O09.90 Chronic hypertension I10 Encounter for supervision of other normal , third trimester Z34.83 Elevated BP without diagnosis of hypertension R03.0 Encounter for supervision of other normal , second trimester Z34.82 Anemia affecting O99.019 Z34.90 Early stage of Z34.90 Hyperemesis gravidarum O21.0 Uterine fibroid D25.9 exam Z39.2 Counseling for control, natural family planning Z30.02 History of delivery Z98.891 BMI 31.0-31.9,adult Z68.31 Sleep disturbance G47.9 Sciatica M54.30 H/O eczema Z87.2 Medical History Medical History (Updated 06/18/21 @ 16:59 by Rosa Anderson DO) History of migraine Surgical History Surgical History (Updated 09/02/20 @ 21:17 by Kamla Hawkins MD) Hx of section Tobacco Smoking/Tobacco Use Status: Never Alcohol Alcohol Intake: current Alcohol intake frequency: a few times a month Alcohol type: wine Substance Use Substance use: Never Substance use type: does not use Prental History History 2 Para 1 Hx # Term Pregnancies 0 Multiple births 0 Hx # Pregnancies 0 Ectopic pregnancies 0 AB induced 0 Hx Number of Living Children 1 AB spontaneous 0 Past Pregnancies Del. Date GA/Weeks # Outcome Route Wgt Sex Labor Lgth Anesthes ia Location Prov Complic 07/11/20 37 No Successful 3194.991 g Male regional Kamla Hawkins Delivery Date: 07/11/20 Pain in labor due to fibroids. non-reassuring FHR remote from delivery. Mild wound dehiscience. Jesse. Group B Strep pos. Meri Mccann Vital Signs and Lab Results Vital Signs Most Recent Vital Signs in EMR: Most Recent Vital Signs Temp Pulse Resp BP 36.6 C 105 H 16 116/69 06/19/21 08:00 06/19/21 11:07 06/19/21 08:00 06/19/21 11:07 Lab Results Result Diagrams: 06/19/21 06:03 06/18/21 15:15 Blood Type / Crossmatch: Patient ABO/Rh A Positive 06/19/21 Antibody Screen NEGATIVE 06/19/21 Complete Blood Count: White Blood Count 13.77 10^3/uL (4.4-10.8) H 06/19/21 06:03 06/19/21 Red Blood Count 4.67 10^6/uL (3.93-5.22) 06/19/21 06:03 06/19/21 Hemoglobin 11.5 g/dL (11.2-15.7) 06/19/21 06:03 06/19/21 Hematocrit 37.1 % (36.0-46.0) 06/19/21 06:03 06/19/21 Platelet Count 239 10^3/uL (130-400) 06/19/21 06:03 06/19/21 Complete Metabolic Panel: Sodium Level 135 mmol/L (136-145) L 06/18/21 15:15 06/18/21 Potassium Level 3.4 mmol/L (3.5-5.1) L 06/18/21 15:15 06/18/21 Chloride Level 101 mmol/L (98-107) 06/18/21 15:15 06/18/21 Carbon Dioxide Level 21.8 mmol/L (21.0-32.0) 06/18/21 15:15 06/18/21 Blood Urea Nitrogen 7 mg/dL (7-18) 06/18/21 15:15 06/18/21 Creatinine 0.6 mg/dL (0.55-1.02) 06/18/21 15:15 06/18/21 Estimated GFR/1.73 m2 >= 60.00 (mL/min/1.73m2) 06/18/21 15:15 06/18/21 Calcium Level 9.0 mg/dL (8.5-10.1) 06/18/21 15:15 06/18/21 Albumin 2.8 g/dL (3.4-5.0) L 06/18/21 15:15 06/18/21 Glucose Level 102 mg/dL (74-106) 06/18/21 15:15 06/18/21 Liver Function Panel: Alanine Aminotransferase (ALT/SGPT) 16 U/L (14-59) 06/18/21 15:15 06/18/21 Aspartate Amino Transf (AST/SGOT) 18 U/L (15-37) 06/18/21 15:15 06/18/21 Coagulation Panel: No Data to Display Cardiac Panel: No Data to Display Arterial Blood Gas: 2 No Data to Display Venous Blood Gas: No Data to Display Pancreas Panel: No Data to Display Thyroid Panel: No Data to Display Infectious Disease: Coronavirus (COVID-19)(PCR) Negative (Negative) 06/18/21 16:45 06/18/21 Coronavirus 2019 Source Nasal/Nares 06/18/21 16:45 06/18/21 Blood Cultures: No Data to Display Toxicology Panel: No Data to Display Panel: No Data to Display
--- NOTE | 2021-06-19 13:13 | W.OBNST ---
Date of service: 06/19/21 Time of Service: 13:14 NST Evaluation Reason for NST Reasons for Nonstress Test: GESTATIONAL HYPERTENSION Gestational Age Gestational Age in Weeks and Days: 35 Weeks and 3Days Test and Monitor Explained Test/Monitor Explained: Test Explained, Monitor Explained and Patient Verbalized Understanding Vital Signs Blood Pressure: 126/78 Pulse: 93 Temperature: 97.9 F Urine Results Urine Protein: Negative Urine Ketones: Negative Urine Glucose: Negative Urine Blood: Negative NST Information Date on Monitor: 06/19/21 Time on Monitor: 10:30 Date off Monitor: 06/19/21 Time off Monitor: 11:08 Total Time on Monitor: 38 NST Interventions: PO Hydration NST Evaluation Patient States Movement: Present FHR Baseline: 120 Variability: Moderate 6-25 bpm Accelerations: 15x15 Decelerations: None NST Results: Reactive Note NST Note Note: Reactive NST. Patient currently hospitalized for hypertension and proteinuria. She received her second dose of betamethasone 12 mg this evening in anticipation of a repeat delivery on 06/20/2021. NST Reviewed and Verified by: Kamla Hawkins
--- NOTE | 2021-06-19 13:15 | W.PM.PROGNOT ---
Date of Service Date of service: 06/19/21 Time of Service: 13:15 Assessment and Plan Assessment and plan (1) Pre-eclampsia added to pre-existing hypertension: Status: Acute Assessment and plan: Decision has been made to deliver the patient at 35 weeks 4 days EGA secondary to worsening attention and preeclampsia. She will receive her second dose of betamethasone this evening. She was consented for a repeat delivery this afternoon. I counseled her about the risk of infection and the risk of uterine atony and managed to surrounding structures including bladder bowel blood vessels and ureters. I also counseled her that if she has bleeding beyond what is normally expected and cannot be stopped in the usual fashion she may require hysterectomy secondary to her uterine fibroids. Patient does not desire a tubal sterilization at the time of her repeat delivery. (2) : Status: Acute Qualifiers: Weeks of gestation: 35 weeks Qualified Code(s): Z3A.35 - 35 weeks gestation of (3) Uterine fibroid: Status: Acute Assessment and plan: Fibroids fundal and did not involve the lower uterine segment Qualifiers: Uterine leiomyoma location: unspecified location Qualified Code(s): D25.9 - Leiomyoma of uterus, unspecified (4) History of delivery: Status: Resolved Assessment and plan: Patient is a candidate for secondary to close interval between pregnancies. Subjective Subjective Patient reports: nausea (Nausea resolved after morning dose of ondansetron.) and other (Patient awoke with a headache this morning. It has improved.) Interval history since last seen: Patient was admitted to the center on 06/18/2021 with gestational hypertension and proteinuria. She had her dose of labetalol increased to 300 mg orally twice daily. She received her first dose of betamethasone 12 mg IM anticipation of a scheduled repeat delivery on 06/20/2021. Exam Const General: no acute distress Nutritional Appearance: obese Orientation: alert, awake and oriented x3 Resp Effort & Inspection: normal respiratory effort Auscultation: clear to auscultation bilaterally Cardio Rate: regular rate Rhythm: regular rhythm Pulses: popliteal pulses present Other: 1 beat of clonus on right foot GI Other: Gravid no focal tenderness. Fetus vertex by [place]'s General: deferred Extrem General: normal to inspection and no clubbing, cyanosis or edema Psych Appearance: grossly normal Mental Status: mental status grossly normal Mood: congruent mood Objective Last Vital Signs Temp 97.9 F 06/19/21 08:00 Pulse 105 H 06/19/21 11:07 Resp 16 06/19/21 08:00 BP 116/69 06/19/21 11:07 Laboratory Results - last 24 hr 06/18/21 06/18/21 06/18/21 14:40 15:15 15:15 WBC 10.77 RBC 4.45 Hgb 10.9 L Hct 35.4 L MCV 79.6 L MCH 24.5 L MCHC 30.8 L RDW 23.2 H Plt Count 221 MPV 9.6 Sodium 135 L Potassium 3.4 L Chloride 101 Carbon Dioxide 21.8 Anion Gap 12.2 H BUN 7 Creatinine 0.6 Estimated GFR/1.73 m2 >= 60.00 Glucose 102 Calcium 9.0 Total Bilirubin 0.3 AST 18 ALT 16 Alkaline Phosphatase 77 Total Protein 6.7 Albumin 2.8 L Ur Random Creatinine 182.93 U Random Total Protein 55.0 U [place] Prot/Creat Ratio 0.30 COVID-19 Source SARS-CoV-2 (PCR) Patient ABO/Rh Antibody Screen 06/18/21 06/19/21 06/19/21 16:45 06:03 06:03 WBC 13.77 H RBC 4.67 Hgb 11.5 Hct 37.1 MCV 79.4 L MCH 24.6 L MCHC 31.0 L RDW 23.0 H Plt Count 239 MPV 10.3 Sodium Potassium Chloride Carbon Dioxide Anion Gap BUN Creatinine Estimated GFR/1.73 m2 Glucose Calcium Total Bilirubin AST ALT Alkaline Phosphatase Total Protein Albumin Ur Random Creatinine U Random Total Protein U [place] Prot/Creat Ratio COVID-19 Source Nasal/Nares SARS-CoV-2 (PCR) Negative Patient ABO/Rh A Positive Antibody Screen NEGATIVE
[2021-06-19] MEDS: Betamet Acet/Betamet Na Ph Inj. 30 MG/5 ML 12 MG IM (17:09)
[2021-06-20] VITALS (17 sets, daily range): BP systolic 141–160; BP diastolic 70–92; PULSE 65–98; RESP 16–18; TEMP 36.8–36.9; O2SAT 95–99
[2021-06-20] MEDS: Ondansetron 4 MG TAB PO (04:53)
[2021-06-20] MEDS: Normal Saline Flush 10 ML SYR IVP ×2 (07:34→20:03)
[2021-06-20] MEDS: Lactated Ringers 1,000 ML 125 ML IV (07:35)
[2021-06-20] MEDS: ceFAZolin 2 GM/50 ML BAG IVPB (07:35)
[2021-06-20] MEDS: Sodium Citrate 30 ML CUP PO (07:51)
[2021-06-20] MEDS: AZITHROMYCIN 500 MG in Normal Saline 250 ML 250 MG IVPB (08:15)
--- NOTE | 2021-06-20 08:34 | PLAC_PTH ---
PATIENT: Valeria Hess LOC: OBS U#:[id number] AGE/SX: 25/F ROOM: OBS.305 RE06/18/[address]: Rosa Anderson DO : 1995 BED: A DIS: 06/22/2021 SPEC #: [id number] RECD: 06/22/21 12:21 STATUS: COSME REQ #: [id number] RUPESH: 06/20/21 08:[address]: Rosa Anderson DEPT: Surgical Specimen RECD BY: Mary Puentes ENTERED: 06/22/21 12:22 SP TYPE: PLAC OTHR DR: Nedra Bunn APRN Tissues: 1 - PLACENTA (3RD TRIMESTER) Procedures: GROSS AND MICRO LEVEL 5 Comments: [id number]
[2021-06-20] MEDS: Bupivacaine LIPOSOME/PF 133 MG/10 ML VIAL IJ (08:40)
[2021-06-20] MEDS: Bupivacaine 0.25% Pres-Free 10 ML VIAL (08:40)
--- NOTE | 2021-06-20 09:46 | W.PM.OBCSECT ---
Date of service: 06/20/21 Time of Service: 09:46 Operative Note Operative Note Delivery Method: Scheduled and Repeat Previous LT Incision: Yes DATE OF PROCEDURE: 06/20/21 PRE-OP DIAGNOSES: Preeclampsia superimposed on chronic hypertension, short interval POST-OP DIAGNOSES: other (double footling breech) PROCEDURE: Scheduled repeat low-transverse delivery at 35W 4D EGA SURGEON: Kamla Hawkins Assisting Surgeon: Rosa Anderson Anesthesia: spinal Estimated blood loss (mL): 400 Pathology: other (Placenta pathology) Complications: None Patient was transported to: floor Patient's condition: stable Indications: 25-year-old G2 now P2 female with an approximately 11-month interval between deliveries who in her third trimester developed preeclampsia superimposed on chronic hypertension. Her elevated blood pressure was treated with oral labetalol acheiving a maximum dose of 300 mg twice daily. Urine protein creatinine ratio performed on 06/18/2021 was 0.3 mg and decision was made to proceed with a scheduled repeat delivery after patient had completed betamethasone prophylaxis. Findings: Viable male infant in the double footling breech position, clear amniotic fluid, Apgars 8/9. Weight 2255 gms. uterus had multiple fundal fibroids with intracavitary components, adnexa are visualized and are normal in appearance. His parents plan to name him Flaco Procedure Description: Patient was taken to the operating room she is placed in the sitting position and spinal anesthesia was administered without difficulty. She was then placed in the dorsal supine position with a leftward tilt. SCDs and a Kwok catheter to gravity drainage were in place. A vaginal prep with Betadine was performed and the patient was prepped and draped in the usual sterile fashion. She received both IV Ancef and Azithromycin prior to entering OR. A surgical time out was performed. After a adequate level of anesthesia was achieved a Pfannenstiel skin incision was made approximately 2 cm superior to the pubic symphysis using a scalpel and the underlying subcutaneous tissue dissected using Bovie electrocautery to the level of the rectus fascia. The rectus fascia was then nicked in the midline and the fascial incision extended laterally using curved Hairston scissors. 2 Shaun clamps were applied to the inferior rectus fascia and the rectus fascia was dissected off of the underlying rectus muscles using Bovie electrocautery and blunt technique. A similar technique was carried out on the superior rectus fascia. Rectus muscles were then in the midline and the peritoneum entered bluntly. The peritoneal incision was extended laterally using blunt technique. The vesicle-uterine peritoneum over lower uterine segment was incised with curved Hairston scissors and the bladder flap created bluntly. Scalpel was used to incise the lower uterine segment in a transverse fashion. The uterine incision was extended bluntly and the amniotic sac was ruptured with clear amniotic fluid noted. A single gloved hand was used to grasp both feet and with gentle traction the lower extremities, buttocks and trunk were delivered to the level of the shoulders. Both arms were swept across the chest and the head was delivered atraumatically. The cord was doubly clamped and cut and the infant handed off to the waiting pediatric team. Cord bloods were obtained and the placenta was extracted with a combination of fundal massage and gentle cord traction. The uterus was left in place, and cleared of all clots and debris. The uterine incision reapproximated with a running lock suture of 0 Vicryl followed by a second imbricating suture of 0 Vicryl. Uterine incision was noted be hemostatic. The adnexa were inspected and noted to be normal in appearance. Peritoneum was reapproximated with a running suture of 2-0 Vicryl. The rectus fascia was reapproximated with a running suture of 0 Vicryl extending from the lateral margins and overlapping in the midline. space within the subcutaneous tissue was closed with a running suture of 2-0 Vicryl. The skin incision was reapproximated with a subcuticular closure of 4-0 Monocryl. Skin incision was sealed with skin glue. The uterus was massaged for any remaining clots and debris. The patient was transported to recovery area in stable condition. All sponge, lap, and needle counts correct x2. Gender: Male weight: 2255 lb
[2021-06-20] MEDS: Oxytocin/Normal Saline 30 UNIT/500 ML BAG 95 UNITS IV (10:16)
[2021-06-20] MEDS: Naloxone 0.4 MG/ML VIAL IVP (10:40)
[2021-06-20] MEDS: Acetaminophen 325 MG TAB 650 MG PO ×3 (12:28→22:38)
[2021-06-20] MEDS: Lactated Ringers 1,000 ML 200 ML IV (13:25)
[2021-06-20] MEDS: Ketorolac 30 MG/ML VIAL IVP ×2 (13:53→20:02)
--- NOTE | 2021-06-20 15:48 | W.ANESPOSTOP ---
Postoperative Evaluation Date, Time and Location Date Performed: 06/20/21 Time Performed: 12:35 Patient Location: Obstetrics Vital Signs Most Recent Imported Vital Signs: Most Recent Vital Signs Temp Pulse Resp BP Pulse Ox 36.9 C 72 16 142/86 H 99 06/20/21 12:20 06/20/21 12:20 06/20/21 12:20 06/20/21 12:20 06/20/21 12:20 Pain Score Most Recent Pain Score: Most Recent Pain Score Pain Level 3 06/20/21 13:53 Assessment Mental Status: Awake (Alert & Oriented to Patient Baseline) Airway and Respiratory Function: Patent airway with normal (patient baseline) respiratory exam Cardiovascular Function: Hemodynamically Stable Hydration Status: Adequately Hydrated Nausea & Vomiting: No Nausea or Vomiting Pain: Pain is tolerable per patient Peripheral Nerve Block: Patient did not receive a nerve block
[2021-06-20] MEDS: Labetalol 100 MG TAB 200 MG PO (20:02)
[2021-06-21] VITALS (9 sets, daily range): BP systolic 137–172; BP diastolic 68–99; PULSE 70–81; RESP 16–18; TEMP 36.6–36.9; O2SAT 96–99
[2021-06-21] MEDS: Ketorolac 30 MG/ML VIAL IVP (02:43)
[2021-06-21 06:24] LABS: Abs Immature Grans 0.03 10^3/uL (0.0-0.06); Absolute Basophil Count 0.01 10^3/uL (0.0-0.2); Absolute Eosinophil Count 0.01 10^3/uL (0.0-0.7); Absolute Lymphocyte Count 1.52 10^3/uL (1.2-3.4); Absolute Monocyte Count 0.87 10^3/uL (0.1-0.8); Absolute Neutrophil Count 7.77 10^3/uL (1.2-6.7); Basophils % 0.1; Eosinophils % 0.1; HCT 33.9 % (36.0-46.0); HGB 10.1 g/dL (11.2-15.7); Immature Grans % 0.3; Lymphocytes % 14.9; MCH 24.5 pg (27.0-33.0); MCHC 29.8 % (32.0-36.0); MCV 82.3 fL (80-95); MPV 9.6 fL (8.0-11.0); Monocytes % 8.5; Neutrophils % 76.1; Nucleated RBC 0 %; Platelet Count 197 10^3/uL (130-400); RBC 4.12 10^6/uL (3.93-5.22); RDW 22.8 % (11.7-14.6); RDW-SD 68.3 fL; WBC 10.21 10^3/uL (4.4-10.8)
[2021-06-21] MEDS: Acetaminophen 325 MG TAB 650 MG PO ×4 (06:27→21:59)
[2021-06-21 06:42] LABS: Anisocytosis 1+
[2021-06-21] MEDS: Ibuprofen 600 MG TAB PO ×3 (08:03→20:06)
[2021-06-21] MEDS: Labetalol 100 MG TAB 200 MG PO (08:03)
[2021-06-21] MEDS: Docusate Sodium 100 MG CAP PO ×2 (08:03→20:06)
--- NOTE | 2021-06-21 11:51 | W.PM.OBPNV1 ---
Date of service: 06/21/21 Time of Service: 11:51 Assessment and Plan Assessment and plan (1) Status post repeat low transverse section: Status: Acute Assessment and plan: POD 1 R LTCS for short interval and preeclampsia at 35 weeks EGA. Pt is comfortable with NSAIDs for pain, is caring for infant and reports light lochia. (2) Pre-eclampsia added to pre-existing hypertension: Status: Acute Assessment and plan: BP stable. Pt will continue with BID Labetalol after discharge and will f/u at [facility] for BP checks. Subjective Subjective Interval history: POD1 s/p scheduled repeat LTCS at 35w4d EGA. Pt has been formula feeding without difficulty. Patient comments: Pain well controlled, Incisional pain (R lateral margin) and Tolerating diet Patient's Mood: satisfacgtory [place] baby status: Doing well, Bottle feeding well, Rooming in and Strong Bonding Observed feeding status: Exclusively formula feeding Exam Physical Exam Vital signs: Temp Pulse Resp BP Pulse Ox 98.2 F 74 16 142/83 H 96 06/21/21 07:30 06/21/21 07:30 06/21/21 07:30 06/21/21 07:30 06/21/21 07:30 Vital Signs Reviewed: Yes Notable Details: Pt remains on Labetalol 200mg BID. Constitutional Constitutional: no acute distress HEENT Exam HEENT Exam: Not Done Neck Exam Neck Exam: Normal Respiratory Exam Respiratory Exam: Normal Cardiovascular Exam Cardiovascular Exam: Normal Abdominal Exam Comments: non-tender Fundal Exam Fundus: Below Umbilicus (when pt sitting upright in chair) and Firm Rectal Exam Rectal Exam: Not Done Extremities Exam Extremity Exam: Normal and Edema (pretibial, non-pitting edema) Back/Spine/Pelvis Exam Back Exam: Normal Skin Exam Skin Exam: Normal (skin incision well approximated with skin glue in place) Neurological Exam Neurological Exam: Not Done Psychiatric Exam Psychiatric Exam: Normal Results Hemoglobin/Hematocrit: Hgb 10.1 g/dL (11.2-15.7) L 06/21/21 06:15 Hct 33.9 % (36.0-46.0) L 06/21/21 06:15 Abnormal Lab Findings: Abnormal Labs 06/18/21 06/18/21 06/19/21 15:15 15:15 06:03 WBC 13.77 H Hgb 10.9 L Hct 35.4 L MCV 79.6 L 79.4 L MCH 24.5 L 24.6 L MCHC 30.8 L 31.0 L RDW 23.2 H 23.0 H Absolute Neutrophils Absolute Monocytes Sodium 135 L Potassium 3.4 L Anion Gap 12.2 H Albumin 2.8 L 06/21/21 06:15 WBC Hgb 10.1 L Hct 33.9 L MCV MCH 24.5 L MCHC 29.8 L RDW 22.8 H Absolute Neutrophils 7.77 H Absolute Monocytes 0.87 H Sodium Potassium Anion Gap Albumin 06/18/21 16:45 Vaginal/Rectal Group B Streptococcus Culture - Final
[2021-06-21] MEDS: Labetalol 100 MG TAB 300 MG PO (16:05)
[2021-06-22 02:00] VITALS: BP 138/80
[2021-06-22] MEDS: Ibuprofen 600 MG TAB PO ×2 (02:00→08:11)
[2021-06-22] MEDS: Acetaminophen 325 MG TAB 650 MG PO ×2 (04:04→10:37)
[2021-06-22 04:05] VITALS: BP 143/84; PULSE 78; RESP 18; TEMP 36.7
[2021-06-22] MEDS: Docusate Sodium 100 MG CAP PO (08:11)
[2021-06-22] MEDS: oxyCODONE 5 mg/Acetaminophen 325 mg TAB PO ×2 (08:11→12:05)
[2021-06-22] MEDS: Labetalol 100 MG TAB 300 MG PO (10:40)
--- NOTE | 2021-06-22 11:00 | DSE_ITS ---
Date of service: 06/22/21 Time of Service: 11:00 DS: Diagnosis Discharge Diagnosis (1) Status post repeat low transverse section: Status: Acute (2) Pre-eclampsia added to pre-existing hypertension: Status: Acute Discharge Plan Disposition Patient Disposition: HOME Condition: Good Discharge Details Reason For Visit: Chronic HTN with Pre-eclampsia Admit Date/Time: 06/18/21 16:45 Admit Provider: Rosa Anderson Attending Provider: Rosa Anderson Primary Care Provider: Nedra Bunn Hospital Course Hospital Course: 25-year-old G2 now P2 female with an approximately 11-month interval between deliveries who in her third trimester developed preeclampsia superimposed on chronic hypertension. Her elevated blood pressure was treated with oral labetalol acheiving a maximum dose of 300 mg twice daily. She was admitted to Urine protein creatinine ratio performed on 06/18/2021 was 0.3 mg. She was admitted to the Center for observation and to receive Betamethasone prophylaxis. She underwent a scheduled repeat delivery at 35w 4d EGA of a male in the double footling breech postion. Post op course was uncomplicated. She was discharged to home of POD2 with satisfactory BPs while taking 300mg Labetalol twice daily. She is formula feeding. I recommended f/u in the office on 06/26/21 for repeat BP check. Pt will use NSAIDs for pain control. Home Meds and New Rx's Prescriptions: No Action ondansetron HCl 8 mg tablet 8 mg PO Q8H PRN (Reason: nausea and vomiting) Qty: 90 RF: 3 labetalol 100 mg tablet 300 mg PO BID RF: 0 Gummy 400 mcg-35 mg -25 mg-5 mg tablet,chewable 1 tab PO DAILY RF: 0 pantoprazole [Protonix] 40 mg tablet,delayed release (DR/EC) 40 mg PO DAILY Qty: 30 RF: 5 magnesium 200 mg tablet 200 mg PO BID RF: 0 prochlorperazine [Compazine] 25 mg suppository 25 mg HI BID PRN (Reason: nausea and vomiting) Qty: 12 RF: 1 ydbisrfidt-heotrcrfyh-hgi-cod [id number] mg capsule 1 cap PO Q4H PRNQty: 20 RF: 0 Discharge Instructions Additional Instructions: make an appointment with Dr. Anderson for 06/26/21 for BP check. Continue taking Labetalol 300mg twice daily. Stand Alone Forms: BC Discharge Instruc Activity:: Activity as Tolerated Equipment/Supplies:: No Equipment Needed Diet:: As Tolerated Discharge Orders Discharge Orders: Discharge Order (Routine); Ordered 06/22/21 Ordered By: Kamla Hawkins DS: Summary Time Spent with Patient providing and/or coordinating discharge services: Less than 30 minutes Status at Discharge Functional status at discharge: independent ambulation Overall status at discharge: patient is progressing back to baseline Mental Status: mental status grossly normal Speech and Movement: speech and movement normal Mood: congruent mood Affect: normal affect Exam Narrative Exam Narrative: Satisfactory pain control with NSAIDs. OK with discharge to home today. Const General: no acute distress Nutritional Appearance: obese Orientation: alert, awake and oriented x3 Neck Neck: normal visual inspection Resp Effort & Inspection: normal respiratory effort Cardio Rate: regular rate GI Inspection: abdominal wall ecchymosis (L lateral margin of skin incision) and incision (well approximated. skin glue in place. ) Palpation: soft and firm (fundus below umbilicus) General: deferred Skin General skin exam: no rashes or lesions noted Extrem General: normal to inspection and no pedal edema (subjectively present. I am unable to observe any.) Psych Appearance: grossly normal Mental Status: mental status grossly normal Speech and Movement: speech and movement normal Mood: congruent mood Affect: normal affect Attitude: cooperative Thought Process: normal DS: Data Vitals/I&O Vitals and I&O: Vital Signs Temperature 98.1 F 06/22/21 04:05 Pulse 78 06/22/21 04:05 Pulse Rhythm Regular 06/21/21 20:10 Respiratory Rate 18 06/22/21 04:05 Respiratory Depth Normal 06/18/21 23:27 Blood Pressure 143/84 H 06/22/21 04:05 Blood Pressure Mean 103 06/22/21 04:05 Pulse Oximetry 98 06/21/21 20:10 Oxygen Delivery Method Room Air 06/18/21 18:13 Oxygen Flow Rate 0 06/18/21 18:13 Pain Level 3 06/21/21 15:57 Comment 06/21/21 16:10 Intake & Output 06/21/21 06/21/21 06/22/21 11:59 23:59 11:59 Intake Total 833.333 / 833.333 Output Total 1250 / 1250 Balance -416.667 / -416.667 Intake: IV 833.333 / 833.333 Output: Urine 1250 / 1250 PFSH All Active Problems (Updated 06/19/21 @ 13:21 by Kamla Hawkins MD) Status post repeat low transverse section (Acute) Pre-eclampsia added to pre-existing hypertension (Acute) HRP (high risk ) (Acute) Chronic hypertension (Acute) Encounter for supervision of other normal , third trimester (Acute) Elevated BP without diagnosis of hypertension (Acute) Encounter for supervision of other normal , second trimester (Acute) Anemia affecting (Acute) (Acute) Early stage of (Acute) Hyperemesis gravidarum (Acute) rx for ondansetron 12/01/20. Uterine fibroid (Acute) BMI 31.0-31.9,adult (Acute) Sleep disturbance (Acute) works night shifts H/O eczema (Chronic) dishydrotic, periorbital Derm in [place] [facility] Medical History (Updated 06/19/21 @ 13:21 by Kamla Hawkins MD) History of migraine Surgical History (Updated 06/21/21 @ 11:56 by Kamla Hawkins MD) Hx of section Family History (Updated 12/23/20 @ 13:29 by Meri Mccann CNM) Father , leukemia Leukemia Mother Anxiety Arthritis Depression Maternal Grandmother Arthritis Hypertension Paternal Grandfather No problems noted. Paternal Grandmother Diabetes Hypertension Hyperlipidemia Brother Asthma Paternal Aunt BRCA positive BRCA 2 positive Maternal Grandfather Heart disease Social History (Updated 12/16/20 @ 16:42 by Kamla Hawkins MD) Smoking/Tobacco Use Status: Never Smoking risk assessment performed?: Yes Alcohol Intake: current Alcohol Intake frequency: a few times a month Alcohol type: wine Drug use: Never Substance use type: does not use Adopted: No Foster care: No Household members: spouse, children, none and other Details: María Elena Barrett Housing: apartment Number of Children: 1 Communication Needs: None Education Level: college Details: BS, nursing 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, [employer] Sexually active: Yes Do you think of yourself as: straight/heterosexual Current gender identity: female What type of physical activity do you participate in: none Bella/Oriental Orthodox: Amish Seatbelt use: always Drive intox or ride w/intox lease purchase driver: No Working smoke detector in home: Yes Fire extinguisher in home: Yes Carbon monox detector in home: Yes Do you feel safe at home: Yes Do you feel safe in your relationship?: Yes Female Reproductive History Menstrual Age of Menarche: 12 control method: none History History 2 Para 1 Hx # Term Pregnancies 0 Multiple births 0 Hx # Pregnancies 0 Ectopic pregnancies 0 AB induced 0 Hx Number of Living Children 1 AB spontaneous 0 Past Pregnancies Del. Date GA/Weeks # Outcome Route Wgt Sex Labor Lgth Anesthes ia Location Prov Complic 07/11/20 37 No Successful 7 lb 0.7 oz Male regional [facility] Delivery Date: 07/11/20 Pain in labor due to fibroids. non-reassuring FHR remote from delivery. Mild wound dehiscience. Jesse. Group B Strep pos. Meri Mccann
[2021-06-22] MEDS: Butalbital/Acetaminophen/Caffeine 50/325/40 TAB PO (12:06)
== END 2021-06-22 12:07 | disposition home or self-care (01) | DRG 787 ==
LOC: OBS 19:22 → BCD 06-22 14:50
PROVIDERS: Admitting Provider Obstetrics & Gynecology; PCP Nurse Practitioner Adult Health; Referring Provider Obstetrics & Gynecology Gynecology; Visit Provider Obstetrics & Gynecology
PROC: 10D00Z1 Extraction of Products of Conception, Low, Open Approach (ICD-10-PCS; CPT 59514; principal; 2021-06-20 08:00)
DX: O11.4 Pre-existing hypertension with pre-eclampsia, complicating childbirth (principal); O99.354 Diseases of the nervous system complicating childbirth; Z37.0 Single live birth; Z3A.35 35 weeks gestation of pregnancy; D25.9 Leiomyoma of uterus, unspecified; O34.13 Maternal care for benign tumor of corpus uteri, third trimester; O34.211 Maternal care for low transverse scar from previous cesarean delivery; N85.8 Other specified noninflammatory disorders of uterus; O99.02 Anemia complicating childbirth; D64.9 Anemia, unspecified; O99.62 Diseases of the digestive system complicating childbirth; K59.00 Constipation, unspecified; G43.909 Migraine, unspecified, not intractable, without status migrainosus; O32.8XX0 Maternal care for other malpresentation of fetus, not applicable or unspecified
CPT/HCPCS: 59514; 36415; 80053; 85027; 86850; 86900; 86901; 87635; 59025; 82565; 84156; 85025; 87081; 88307; G0378; J0456; J0690; J0702; J1885; J2310; J2370; J2405; J2590; J3010; J8597

== ENCOUNTER 2021-06-29 03:09 | Outpatient (CLI) | payer BC, SELFPAY | END 2021-06-29 03:10 | disposition home or self-care (01) | LOC: LBO 03:09 | PROVIDERS: PCP Nurse Practitioner Adult Health; Visit Provider Obstetrics & Gynecology ==

== ENCOUNTER 2021-08-20 16:16 | Outpatient (REF) | payer BC, SELFPAY ==
--- NOTE | 2021-08-20 14:45 | PAPFT_PTH ---
PATIENT: Valeria Hess LOC: [facility] U#:[id number] AGE/SX: 26/F ROOM: RE08/20/[address]: Kamla Hawkins : 1995 BED: DIS: 08/20/2021 SPEC #: [id number] RECD: 08/20/21 17:25 STATUS: COSME REJack #: [id number] RUPESH: 08/20/21 14:[address]: Kamla Hawkins DEPT: [facility] Cytology RECD BY: Mary Puentes ENTERED: 08/20/21 17:26 SP TYPE: PAPFT OTHR DR: Nedra Bunn APRN Tissues: 1 - CX/ENDOCX FOR PAP SMEARS Procedures: PAP THIN PREP/[facility] Screening Comments: [id number]
== END 2021-08-20 16:17 | disposition home or self-care (01) ==
LOC: LBN 16:16
PROVIDERS: PCP Nurse Practitioner Adult Health; Visit Provider Obstetrics & Gynecology Gynecology
DX: Z12.4 Encounter for screening for malignant neoplasm of cervix (principal)
CPT/HCPCS: 88142

== ENCOUNTER 2021-12-05 06:52 | Emergency (ER) | payer BC, SELFPAY ==
[2021-12-05 07:00] VITALS: BP 126/81; PULSE 92; RESP 16; TEMP 36.7; O2SAT 100
[2021-12-05 07:40] LABS: Abs Immature Grans 0.02 10^3/uL (0.0-0.06); Absolute Basophil Count 0.02 10^3/uL (0.0-0.2); Absolute Eosinophil Count 0.08 10^3/uL (0.0-0.7); Absolute Lymphocyte Count 1.38 10^3/uL (1.2-3.4); Absolute Monocyte Count 0.57 10^3/uL (0.1-0.8); Absolute Neutrophil Count 2.32 10^3/uL (1.2-6.7); Basophils % 0.5; Eosinophils % 1.8; HCT 33.9 % (36.0-46.0); HGB 9.6 g/dL (11.2-15.7); Immature Grans % 0.5; Lymphocytes % 31.4; MCH 20.3 pg (27.0-33.0); MCHC 28.3 % (32.0-36.0); MCV 72 fL (80-95); MPV 9.5 fL (8.0-11.0); Neutrophils % 52.8; Platelet Count 286 10^3/uL (130-400); RBC 4.73 10^6/uL (3.93-5.22); RDW 17.2 % (11.7-14.6); WBC 4.39 10^3/uL (4.4-10.8)
[2021-12-05 07:42] LABS: Bilirubin Small (Negative); Blood Negative (Negative); Clarity Clear (Clear); Glucose Negative (Negative); Ketones Negative (Negative); Leukocyte Esterase Negative (Negative); Nitrite Negative (Negative); Specific Gravity >= 1.030 (1.005-1.025); Urobilinogen 0.2 EU/dL (Up TO 0.2)
--- NOTE | 2021-12-05 07:45 | DI.CT_ITS ---
Exam(s) CT ABDOMEN PELVIS WO EXAM: CT ABDOMEN PELVIS WO CLINICAL HISTORY: RUQ/RLQ/back pain, nausea/vomiting. TECHNIQUE: Imaging Protocol: Axial computed tomography images with coronal and sagittal reformatted images were created and reviewed CONTRAST MATERIAL: Intravenous: none Oral: Yes. Oral contrast was administered for bowel opacification. COMPARISON: No exams were available for comparison FINDINGS: VISUALIZED LUNG BASES: No nodules nor pleural effusions evident. ABDOMEN: There is no ascites. LIVER: There are no obvious focal hepatic lesions evident of this noninfused study. GALLBLADDER/BILIARY: No obvious gallbladder pathology. CBD is not dilated. PANCREAS: No evidence of pancreatic mass nor dilatation of the pancreatic duct. SPLEEN: Spleen is not enlarged. No obvious intrasplenic lesions. ADRENALS: There are no significant adrenal masses. KIDNEYS:No cysts evident. No solid renal masses. No calculi nor hydronephrosis. . ABDOMINAL AORTA: Abdominal aorta is not enlarged. LYMPH NODES: There is no retroperitoneal nor paraaortic adenopathy. ABDOMINAL WALL: No evidence of significant anterior abdominal wall nor inguinal hernia. GI: There is no evidence of bowel obstruction, free air, nor abscess. PELVIS: LYMPH NODES: There is no intrapelvic nor inguinal adenopathy. GI: No evidence of appendicitis.No evidence of sigmoid diverticulitis. URINARY BLADDER: No calculi nor obvious masses evident REPRODUCTIVE: There is an IUD in the uterine canal. The uterus is grossly enlarged and lobulated con sistent with multiple noncalcified uterine fibroids. There is also a cyst in the left ovary which me asures approximately 4.4 x 3.5 cm. No free fluid. Small cysts also noted in the right ovary measuri ng 2 by 1.7 cm. No free fluid in the cul-de-sac nor either adnexal region. OSSEOUS: In the right iliac bone there is a well-defined nonexpansile bone lesion measuring 1.7 by 1. 5 by 2.7 cm (craniocaudal). This does not exhibit a peripherally sclerotic border. No other bone le sions identified in the field of view of this study. IMPRESSION: 1. Grossly enlarged uterus, which is most probably related to multiple noncalcified uterine fibroids. There is an IUD in the endometrial canal noted. 2. Follicular cysts in both ovaries, largest measuring 4.4 x 3.5 cm in the left ovary. Smaller 2 x 1 .7 cm follicular cyst in the right ovary. No free fluid in the pelvis. 3. There is a solitary possible concerning bone lesion field of view of this study, this being in the right iliac bone and measuring 17 x 15 x 27 millimeters. This does not exhibit a peripherally scler otic border. It is nonexpansile. Consider further imaging of this finding. RADIATION DOSE DELIVERED: 1,168.65mGy.cm Total DLP DATA REPOSITORY: All CT scans at this facility are submitted to the National Radiology Data Registry (NRDR) Dose Index Registry (DIR) with the [employer] (A[employer]). RADIATION OPTIMIZATION: All CT scans at this facility use at least one of these dose optimization te chniques: automated exposure control; mA and/or kV adjustment per patient size (includes targeted exa ms where dose is matched to clinical indication); or iterative reconstruction.
[2021-12-05 07:49] LABS: Bacteria Negative HPF (Negative); C & S Indicated? No; Casts 0-2 Hyaline LPF (Negative); Crystals Rare Amorphous HPF (Negative); Epithelial Cells Few HPF (Negative); Mucus Moderate (Negative); RBC Negative HPF (0-2); WBC Negative HPF (0-5)
--- NOTE | 2021-12-05 07:51 | W.ED.GENAD ---
Discharge Plan Disposition Patient Disposition: HOME Condition: Stable Discharge Details Clinical Impression: Abdominal pain, Nausea and vomiting Primary Care Provider: Nedra Bunn ED Provider: Mendel Rascon Home Meds and New Rx's Prescriptions: Continued Mirena 20 mcg/24 hours (7 yrs) 52 mg intrauterine device 1 insert intrauterine ONCE Qty: 1 0RF Rx Instructions: as a single dose Discharge Instructions Instructions: Acute Nausea and Vomiting (ED) Additional Instructions: Home to rest today. Small, frequent sips of fluids to maintain hydration. Your work-up today included blood work and CT imaging as we discussed. May use your previously prescribed Zofran if needed for nausea. Return to develop a fever, lower abdominal pain, or any other acute concerns. Discharge Data Discharge Date/Time-TO BE ENTERED AT DEPARTURE: 12/05/21 10:42 Medical Decision Making <Tania Garcia DO - Last Filed: 12/07/21 09:00> 0725 -- 26-year-old female presents with vomiting and abdominal pain for the past week, worse over the past 4 days. Vitals within normal limits. Patient appears comfortable and nontoxic. Her abdomen is soft but tender in the right lower quadrant greater than the right upper quadrant and right flank. Differential diagnosis includes gastroenteritis, biliary colic, cholecystitis, appendicitis, ovarian cyst, kidney stone. We will place an IV, bolus IV fluids, screening labs, urinalysis, CT abdomen pelvis with oral contrast only. Consider gallbladder ultrasound if able to obtain. We will give a dose of IV Toradol, Zofran and reassess. This patient was evaluated during a time of global shortage of iodinated contrast media. Based on guidance from the [employer], best practices, and local institutional approaches, an alternative path for evaluating and managing the patient may have been employed in order to provide optimal care during this shortage. The current situation has been discussed with the patient. 0810 -- case endorsed to Dr. Rascon to follow-up on labs and imaging and final disposition. Medical Records Medical records reviewed: Yes I reviewed the patient's medical records. <Mendel Rascon MD - Last Filed: 12/05/21 10:35> Lab Data Lab results reviewed: Yes I reviewed the patient's lab results. Lab results narrative: Received signout on the patient from Dr. Garcia. Please see her note regarding details of the initial presentation, exam and plan of care. White blood cell count of 4.3, hematocrit 34, platelets 286. Chemistries reassuring as are LFTs and lipase. Urinalysis notes elevated specific gravity greater than 1.03. CT scan was obtained. This shows no acute abnormality in abdomen or pelvis. Note of enlarged uterus. See the formal report patient is improved and request discharge to home. She has Zofran that she may use as needed. She is stable and appropriate for trial of outpatient management Labs: Laboratory Results - last 24 hr 12/05/21 12/05/21 12/05/21 07:17 07:34 07:34 WBC 4.39 L RBC 4.73 Hgb 9.6 L Hct 33.9 L MCV 72 L MCH 20.3 L MCHC 28.3 L RDW 17.2 H Plt Count 286 MPV 9.5 Immature Gran % 0.5 Neutrophils % 52.8 Lymphocytes % 31.4 Monocytes % 13.0 Eosinophils % 1.8 Basophils % 0.5 Nucleated RBC % 0.0 Absolute Neutrophils 2.32 Absolute Lymphocytes 1.38 Absolute Monocytes 0.57 Absolute Eosinophils 0.08 Absolute Basophils 0.02 RBC Morphology See Below Hypochromasia 1+ Microcytosis 2+ Sodium 137 Potassium 3.5 Chloride 104 Carbon Dioxide 23.9 Anion Gap 9.1 BUN 12 Creatinine 0.6 Estimated GFR/1.73 m2 >= 60.00 Glucose 95 Calcium 8.1 L Total Bilirubin 0.3 AST 14 L ALT 19 Alkaline Phosphatase 30 L Total Protein 6.9 Albumin 3.4 Lipase 71 Urine Color Yellow Urine Clarity Clear Urine pH 6.0 Ur Specific [place] >= 1.030 H Urine Protein 30 H Urine Ketones Negative Urine Blood Negative Urine Nitrite Negative Urine Bilirubin Small H Urine Urobilinogen 0.2 Ur Leukocyte Esterase Negative Urine RBC Negative Urine WBC Negative Ur Epithelial Cells Few Urine Crystals Rare Amorphous Urine Bacteria Negative Urine Casts 0-2 Hyaline Urine Mucus Moderate Ur Culture Indicated? No Urine Glucose Negative HPI <Tania Garcia DO - Last Filed: 12/07/21 09:00> General Mode of arrival: ambulatory. Date/Time Provider Initiated Documentation: 12/05/21 07:25. Limitations to Documentation: no limitations. Information obtained by: patient. HPI Narrative: Patient is a 26-year-old female with a history of section x2, hypertension, migraine and diabetes who presents with nausea and vomiting over the past week that briefly resolved and then restarted 4 days ago and associated with right upper quadrant, right lower quadrant and right flank pain. She states she has been vomiting 6 times daily but is now occurring 2-3 times daily. She states the vomit is mainly food and occasionally bile but denies any hematemesis. She describes the abdominal pain is intermittent, cramping without aggravating or alleviating factors. She states the pain is 4/10 at its worst. She states her last bowel movement was yesterday which is not unusual and denies any diarrhea or rectal bleeding. She denies fever, urinary symptoms, recent travel, recent sick contacts, recent antibiotic. She last took Excedrin Migraine at 10:30 PM last night and has not taken any Tylenol or Motrin today Related Data Home Medications Medication Instructions Recorded Confirmed levonorgestrel 20 mcg/24 hours (7 1 insert intrauterine ONCE #1 ea 08/20/21 12/05/21 yrs) 52 mg intrauterine device (Mirena) Previous Rx's Medication Instructions Recorded levonorgestrel 20 mcg/24 hours (7 1 insert intrauterine ONCE #1 ea 08/20/21 yrs) 52 mg intrauterine device (Mirena) Allergies Allergy/AdvReac Type Severity Reaction Status Date / Time ferrous fumarate Allergy Intermediate Facial rash Verified 12/05/21 07:08 [From 1 + Iron] folic acid Allergy Intermediate Facial rash Verified 12/05/21 07:08 [From 1 + Iron] vit,tx Allergy Intermediate Facial rash Verified 12/05/21 07:08 calc,iron,folic acd(less thn 1 mg) [From 1 + Iron] vitamins with Allergy Intermediate Facial rash Verified 12/05/21 07:08 calcium [From 1 + Iron] shellfish derived Allergy Throat Verified 12/05/21 07:08 Swlling, Itching diphenhydramine AdvReac Intermediate eczema Verified 12/05/21 07:08 [From Benadryl] acts up cocamidopropyl betaine AdvReac Skin Rash Verified 12/05/21 07:08 General Stated Complaint: Abd Prob LIBRA: 3 Review of Systems <Tania Garcia DO - Last Filed: 12/07/21 09:00> All systems reviewed & are unremarkable except as noted in HPI and below Constitutional Constitutional: Denies chills, Denies excessive sweating, Denies fatigue, Denies fever(s), Denies weakness and Denies weight loss Eyes Eyes: Reports system reviewed and no additional complaints, except as documented and Denies blurry vision ENT Ears, Nose, Mouth, and Throat: Denies vertigo, Denies dizziness, Denies otalgia, Denies nasal congestion, Denies sore throat and Denies throat swelling Cardiovascular Cardiovascular: Denies chest pain, Denies syncope, Denies rapid heart rate and Denies dyspnea Respiratory Respiratory: Denies chest congestion, Denies cough, Denies pain on inspiration and Denies dyspnea Gastrointestinal Gastrointestinal: Reports abdominal pain, Denies diarrhea, Reports nausea and Reports vomiting Genitourinary Genitourinary: Denies hematuria, Denies dysuria and Denies flank pain Musculoskeletal Musculoskeletal: Denies back pain and Denies joint swelling Integumentary/Breasts Skin/Breast: Denies lesions and Denies rash Neurologic Neurologic: Denies behavioral changes, Denies confusion, Denies vertigo, Denies dizziness, Denies syncope, Denies localized weakness and Denies weakness Psychiatric Psychiatric: Denies behavioral changes, Denies confusion and Denies depression Endocrine Endocrine: Denies excessive sweating and Denies fatigue Hematologic/Lymphatic Hematologic/Lymphatic: Denies easy bruising and Denies lymphadenopathy Allergic/Immunologic Allergic/Immunologic: Denies throat swelling PFSH <Tania Garcia DO - Last Filed: 12/07/21 09:00> All Active Problems (Updated 12/05/21 @ 08:16 by Tania Garcia DO) Abdominal pain (Acute) Nausea and vomiting (Acute) IUD strings lost (Acute) Encounter for insertion of mirena IUD (Acute) Uterine fibroid (Acute) Sleep disturbance (Acute) works 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 Non-reassuring FHR.Jesse. [id number]. Hx of section Status post repeat low transverse section Family History (Updated 12/23/20 @ 13:29 by Meri Mccann CNM) Father , leukemia Leukemia Mother Anxiety Arthritis Depression Maternal Grandmother Arthritis Hypertension Paternal Grandfather No problems noted. Paternal Grandmother Diabetes Hypertension Hyperlipidemia Brother Asthma Paternal Aunt BRCA positive BRCA 2 positive Maternal Grandfather Heart disease Social History (Updated 12/16/20 @ 16:42 by Kamla Hawkins MD) Smoking/Tobacco Use Status: Never Smoking risk assessment performed?: Yes Alcohol Intake: current Alcohol Intake frequency: a few times a month Alcohol type: wine Drug use: Never Substance use type: does not use Adopted: No Foster care: No Household members: spouse, children, none and other Details: María Elena Barrett Housing: apartment Number of Children: 1 Communication Needs: None Education Level: college Details: BS, nursing 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, [employer] Sexually active: Yes Do you think of yourself as: straight/heterosexual Current gender identity: female What type of physical activity do you participate in: none Bella/Buddhism: Caodaism Seatbelt use: always Drive intox or ride w/intox driver's license reviewing officer: No Working smoke detector in home: Yes Fire extinguisher in home: Yes Carbon monox detector in home: Yes Do you feel safe at home: Yes Do you feel safe in your relationship?: Yes Female Reproductive History Menstrual Age of Menarche: 12 control method: none History History 2 Para 2 Hx # Term Pregnancies 0 Multiple births 0 Hx # Pregnancies 0 Ectopic pregnancies 0 AB induced 0 Hx Number of Living Children 1 AB spontaneous 0 Past Pregnancies Del. Date GA/Weeks # Preg Succ Route Wgt Sex Labor Lgth Anesthesia Location [facility] 07/11/20 37 No 3194.991 g Male [facility] Kamla Hawkins 06/20/21 35 No Male [facility] Delivery Date: 07/11/20 Last Updated by: Meri Mccann CNM Pain in labor due to fibroids. non-reassuring FHR remote from delivery. Mild wound dehiscience. Group B Strep pos. Delivery Date: 06/20/21 Last Updated by: Maria E Kolb M.D. RCS due to GHTN/PEC. Flaco Exam <Tania Gracia DO - Last Filed: 12/07/21 09:00> Const General: cooperative and healthy appearing Orientation: alert, awake and oriented x3 HENMT Head: normal to inspection Ears: hearing grossly normal bilaterally, external ears normal and TM's normal bilaterally General nose exam: external nose normal Face and sinus: normal facial exam Mouth: oral mucosae normal Teeth and gingiva: dentition normal Throat: posterior oropharynx normal Eyes General: appearance normal, both eyes and all related structures Eyelids: eyelids normal Pupils: PERRL EOM: EOM intact bilaterally Neck Neck: normal visual inspection Lymphatic: no lymphadenopathy noted Chest Chest: normal inspection of the chest Resp Effort & Inspection: normal respiratory effort and able to speak in complete sentences Auscultation: clear to auscultation bilaterally Cardio Rate: regular rate Rhythm: regular rhythm GI Inspection: normal to inspection Palpation: soft, not firm, no guarding, no hepatosplenomegaly, no masses and tender in the RLQ and in the RUQ Auscultation: hypoactive bowel sounds Back/Spine/Pelvis Back: no CVA tenderness Skin General skin exam: no rashes or lesions noted Neuro General: patient alert and patient awake Cognition: normal cognition Speech: speech normal Gait: normal gait Motor: muscle tone normal throughout Sensory Exam: no sensory deficits noted Extrem General: normal to inspection, full ROM and capillary refill normal Psych Appearance: grossly normal Mental Status: mental status grossly normal Speech and Movement: speech and movement normal Affect: normal affect Thought Process: normal Course <Tania Garcia DO - Last Filed: 12/07/21 09:00> Vital Signs Vital signs: Vital Signs Temperature 98.1 F 12/05/21 07:00 Pulse 92 H 12/05/21 07:00 Respiratory Rate 16 12/05/21 07:00 Blood Pressure 126/81 12/05/21 07:00 Pulse Oximetry 100 12/05/21 07:00 Temperature 98.1 F 12/05/21 07:00 Temperature Source Temporal Artery Scan 12/05/21 07:00 Pulse 92 H 12/05/21 07:00 Respiratory Rate 16 12/05/21 07:00 Respiratory Effort Non-Labored 12/05/21 07:03 Blood Pressure 126/81 12/05/21 07:00 Blood Pressure Position Sitting 12/05/21 07:00 Pulse Oximetry 100 12/05/21 07:00 Oxygen Delivery Method Room Air 12/05/21 07:00 Oxygen Flow Rate 0 12/05/21 07:00 Pain Level 3 12/05/21 07:03 Lab/Test Results Lab/Test Results: Laboratory Tests Range/Units 12/05/21 07:17 Urine Color (Yellow) Yellow Urine Clarity (Clear) Clear Urine pH (5-8) 6.0 Ur Specific [place] (1.005-1.025) >= 1.030 H Urine Protein (Negative) mg/dL 30 H Urine Ketones (Negative) mg/dL Negative Urine Blood (Negative) Negative Urine Nitrite (Negative) Negative Urine Bilirubin (Negative) Small H Urine Urobilinogen (Up TO 0.2) EU/dL 0.2 Ur Leukocyte Esterase (Negative) Negative Urine RBC (0-2) HPF Negative Urine WBC (0-5) HPF Negative Ur Epithelial Cells (Negative) HPF Few Urine Crystals (Negative) HPF Rare Amorphous Urine Bacteria (Negative) HPF Negative Urine Casts (Negative) LPF 0-2 Hyaline Urine Mucus (Negative) Moderate Ur Culture Indicated? No Urine Glucose (Negative) mg/dL Negative POC- Test(urine) Negative Sign Out <Tania Garcia DO - Last Filed: 12/07/21 09:00> Sign Out Data: Sign Out Comment: Follow-up on labs and imaging and final disposition. CT abdomen pelvis planned for 9:30 AM. Last updated by Tania Garcia DO at 12/05/21 08:24
[2021-12-05 07:54] LABS: Diff Comment RBC Morph Reviewed; Hypochromasia 1+; Microcytosis 2+
[2021-12-05 07:55] LABS: ALT 19 U/L (14-59); AST 14 U/L (15-37); Albumin 3.4 g/dL (3.4-5.0); Alkaline Phosphatase 30 U/L (46-116); Anion Gap 9.1 mmol/L (3-11); BUN 12 mg/dL (7-18); Bilirubin, Total 0.3 mg/dL (0.2-1.0); CO2 23.9 mmol/L (21.0-32.0); CREATININE 0.6 mg/dL (0.55-1.02); Calcium 8.1 mg/dL (8.5-10.1); Chloride 104 mmol/L (98-107); Glucose 95 mg/dL (74-106); Lipase 71 U/L (73-393); Potassium 3.5 mmol/L (3.5-5.1); Sodium 137 mmol/L (136-145); Total Protein 6.9 g/dL (6.4-8.2)
[2021-12-05] MEDS: Breeza Beverage 473 ML BTL PO ×2 (07:57→07:58)
[2021-12-05] MEDS: Ondansetron 4 MG/2 ML VIAL IVP (08:15)
[2021-12-05] MEDS: Normal Saline 1,000 ML 1000 ML IV (08:15)
[2021-12-05] MEDS: Ketorolac 30 MG/ML VIAL IVP (08:15)
--- NOTE | 2021-12-05 10:11 | DI.VRAD_ITS ---
PROCEDURE INFORMATION: Exam: CT Abdomen And Pelvis Without Contrast Exam date and time: 12/05/2021 9:31 AM Age: 26 years old Clinical indication: Other: Ruq, luq, back pain, nausea vomitting TECHNIQUE: Imaging protocol: Computed tomography of the abdomen and pelvis without contrast. Radiation optimization: All CT scans at this facility use at least one of these dose optimization techniques: automated exposure control; mA and/or kV adjustment per patient size (includes targeted exams where dose is matched to clinical indication); or iterative reconstruction. COMPARISON: SD US PELVIS TRANSVAGINAL 09/23/2021 9:11 AM FINDINGS: Lungs: Visualized lung bases are clear. No pleural effusions. Liver: Unremarkable. Gallbladder and bile ducts: Unremarkable. No calcified gallstones. No intrahepatic or extrahepatic biliary ductal dilation. Pancreas: Unremarkable. Spleen: Unremarkable. The spleen is normal in size. Adrenal glands: Unremarkable. Kidneys and ureters: Unremarkable. No hydronephrosis or hydroureter. Stomach and bowel: Unremarkable. The stomach is nondilated. The small and large bowel are normal in caliber. Oral contrast has reached the cecum at the time of imaging. Appendix: A nondilated appendix is identified. Intraperitoneal space: Unremarkable. No ascites, fluid collection, or pneumoperitoneum. Retroperitoneal space: Unremarkable. No retroperitoneal collection or mass. Vasculature: Unremarkable. The abdominal aorta is normal in caliber. Lymph nodes: No pathologically enlarged lymph nodes. Urinary bladder: Unremarkable. Reproductive: Enlarged myomatous uterus which measures up to 20 cm in sagittal length, extending superior to the umbilicus. There is an intrauterine device in place. A 2.6 cm cystic structure in the right adnexa is a presumed prominent follicle. There is a larger, approximately 4.3 cm cystic structure in the left adnexa. Bones/joints: No suspicious osseous lesions. Soft tissues: No acute or suspicious abnormality. IMPRESSION: 1. No acute abnormality in the abdomen or pelvis. No specific evidence of an inflammatory or obstructive process. 2. Markedly enlarged myomatous uterus. 3. Left adnexal cyst measuring up to 4.3 cm. Dictated and Authenticated by: Windy Mitchell MD. Ordering:SINTIA Marin MD
[2021-12-05 10:36] VITALS: BP 105/65; PULSE 76; TEMP 36.7; O2SAT 99
== END 2021-12-05 10:42 | disposition home or self-care (01) ==
PROVIDERS: Physician Assistant; Emergency Provider Emergency Medicine; PCP Nurse Practitioner Adult Health
DX: R11.2 Nausea with vomiting, unspecified (principal); R10.11 Right upper quadrant pain; R10.31 Right lower quadrant pain; R10.811 Right upper quadrant abdominal tenderness; R10.813 Right lower quadrant abdominal tenderness; I10 Essential (primary) hypertension; E11.9 Type 2 diabetes mellitus without complications
CPT/HCPCS: 36415; 80053; 81025; 83690; 96361; 96374; 96375; 99284; 74176; 81003; 81015; 85025; J1885; J2405; J3490

== ENCOUNTER 2022-05-14 13:46 | Outpatient (REF) | payer BC, SELFPAY ==
--- NOTE | 2022-05-14 13:10 | ENDOMET_PTH ---
PATIENT: Valeria Hess LOC: [facility] U#:[id number] AGE/SX: 26/F ROOM: RE05/14/[address]: Rosa Anderson DO : 1995 BED: DIS: 05/14/2022 SPEC #: [id number] RECD: 05/14/22 14:42 STATUS: SOUT REQ #: [id number] RUPESH: 05/14/22 13:[address]: Rosa Anderson DEPT: Surgical Specimen RECD BY: Mary Puentes ENTERED: 05/14/22 14:42 SP TYPE: Endomet OTHR DR: Nedra Bunn APRN Tissues: 1 - ENDOMETRIUM BX/FRANCISCO Procedures: GROSS AND MICRO LEVEL 4 Comments: [id number]
== END 2022-05-14 13:47 | disposition home or self-care (01) ==
LOC: LBN 13:46
PROVIDERS: PCP Nurse Practitioner Adult Health; Visit Provider Obstetrics & Gynecology
DX: N93.9 Abnormal uterine and vaginal bleeding, unspecified (principal)
CPT/HCPCS: 88305

== ENCOUNTER 2022-06-15 18:01 | Emergency (ER) | payer BC, SELFPAY ==
[2022-06-15] VITALS (52 sets, daily range): BP systolic 124–160; BP diastolic 79–88; PULSE 91–107; RESP 12–27; TEMP 37.3; O2SAT 98–100
--- NOTE | 2022-06-15 18:00 | RT.EKG_ITS ---
APPROVED REPORT Exam: Resting ECG Reason for Exam: dizzy, lightheaded Patient Location: E HR:105 bpm ECG Measurements Heart Rate 105 AXIS VT 143 P 68 QRSd 79 QRS 37 QT 319 T 61 QTc 422 Conclusion Sinus tachycardia...rate> 99 sinus tacycardia, normal axis normal intervals, non ischemic
--- NOTE | 2022-06-15 18:30 | W.ED.GENAD ---
Discharge Plan Disposition Patient Disposition: Home Condition: Improving Discharge Details Chief Complaint: [employer] Clinical Impression: Anemia, Vaginal bleeding Primary Care Provider: Nedra Bunn ED Provider: Patric Sinclair Home Meds and New Rx's Prescriptions: No Action norethindrone acetate [Aygestin] 5 mg tablet 5 mg PO BID Qty: 60 3RF Mirena 20 mcg/24 hours (7 yrs) 52 mg intrauterine device 1 insert intrauterine ONCE Qty: 1 0RF Rx Instructions: as a single dose tranexamic acid 650 mg tablet 650 mg PO BID Qty: 60 2RF Discharge Instructions Instructions: Anemia (ED) Additional Instructions: Please follow-up with infusion appointment for iron infusion. Please return to the emergency department for any worsening symptoms. Follow-up with [employer] as scheduled Medical Decision Making 26-year-old female known history of uterine fibroids, on levonorgestrel as well as tranexamic acid followed closely by Dr. Anderson of [employer] currently in consultation for evaluation of possible elective hysterectomy, presents with continued vaginal bleeding over the past several weeks to months worse over the last day passing large clots initially going through several pads an hour now slowing down at this time. Fatigue exertional dyspnea at home today, conjunctival pallor and generalized mild skin pallor. Tachycardia on arrival sinus tachycardia on EKG. Maintaining blood pressure and mental status. No respiratory distress at rest. Likely symptomatic anemia related to blood loss from fibroids. Lower suspicion for infectious process or traumatic process. Will obtain basic labs type and screen coag panel, will perform pelvic examination. Will likely need transfusion we will discuss case with Dr. Anderson 19: 03 patient resting comfortably heart rate now in the low 100s. Maintaining blood pressure and mental status. Patient deferring pelvic examination given recent pelvic exam in office endometrial biopsy by Dr. Anderson who is currently at the bedside. The plan per OBGyn will be for patient to follow-up in infusion center tomorrow for iron infusion and will be scheduled for more urgent hysterectomy. Will allow fluids to run and close reassessment of vital signs and symptomatology. 18: 43 patient resting comfortably no acute distress hemodynamically stable. Heart rate now 97 bpm after fluids. HPI General Date/Time Provider Initiated Documentation: 06/15/22 18:15. HPI Narrative: 25-year-old female history of uterine fibroids on levonorgestrel as well as tranexamic acid, presents with weeks to months of vaginal bleeding currently consultation with Dr. Anderson of [employer] to discuss possible hysterectomy, presents with generalized fatigue and exertional dyspnea in the setting of increased vaginal bleeding has been passing large clots earlier today. Related Data Home Medications Medication Instructions Recorded Confirmed levonorgestrel 20 mcg/24 hours (8 1 insert intrauterine ONCE #1 ea 08/20/21 06/15/22 yrs) 52 mg intrauterine device (Mirena) norethindrone acetate 5 mg tablet 5 mg PO BID #60 tabs 04/23/22 06/15/22 (Aygestin) tranexamic acid 650 mg tablet 650 mg PO BID #60 tabs 06/14/22 06/15/22 Previous Rx's Medication Instructions Recorded levonorgestrel 20 mcg/24 hours (8 1 insert intrauterine ONCE #1 ea 08/20/21 yrs) 52 mg intrauterine device (Mirena) norethindrone acetate 5 mg tablet 5 mg PO BID #60 tabs 04/23/22 (Aygestin) tranexamic acid 650 mg tablet 650 mg PO BID #60 tabs 06/14/22 Allergies Allergy/AdvReac Type Severity Reaction Status Date / Time ferrous fumarate Allergy Intermediate Facial rash Verified 06/15/22 18:10 [From 1 + Iron] folic acid Allergy Intermediate Facial rash Verified 06/15/22 18:10 [From 1 + Iron] vit,tx Allergy Intermediate Facial rash Verified 06/15/22 18:10 calc,iron,folic acd(less thn 1 mg) [From 1 + Iron] vitamins with Allergy Intermediate Facial rash Verified 06/15/22 18:10 calcium [From 1 + Iron] shellfish derived Allergy Throat Verified 06/15/22 18:10 Swlling, Itching diphenhydramine AdvReac Intermediate eczema Verified 06/15/22 18:10 [From Benadryl] acts up cocamidopropyl betaine AdvReac Skin Rash Verified 06/15/22 18:10 General Stated Complaint: [employer] LIBRA: 3 Review of Systems Narrative: Review of Systems Constitutional: Fatigue Eyes: negative ENT: negative Cardiovascular: Tachycardia Respiratory: Exertional dyspnea Gastrointestinal: negative : negative Musculoskeletal: negative Skin: negative Neurologic: negative Psych: negative PFSH All Active Problems (Updated 06/15/22 @ 19:46 by Patric Sinclair MD) Anemia (Chronic) Vaginal bleeding (Acute) Abnormal uterine bleeding (Acute) Uterine fibroid (Acute) Sleep disturbance (Acute) works night shifts Medical History BMI 31.0-31.9,adult Chronic hypertension H/O eczema dishydrotic, periorbital Derm in [place] History of migraine Pre-eclampsia added to pre-existing hypertension Sciatica Surgical History History of delivery 07/11/20. Non-reassuring FHR.Jesse. [id number]. Hx of section Status post repeat low transverse section Family History Father , leukemia Leukemia Mother Anxiety Arthritis Depression Maternal Grandmother Arthritis Hypertension Paternal Grandfather No problems noted. Paternal Grandmother Diabetes Hypertension Hyperlipidemia Brother Asthma Paternal Aunt BRCA positive BRCA 2 positive Maternal Grandfather Heart disease Social History Smoking/Tobacco Use Status: Never Smoking risk assessment performed?: Yes Alcohol Intake: current Alcohol Intake frequency: a few times a month Alcohol type: wine Drug use: Never Substance use type: does not use Adopted: No Foster care: No Household members: spouse, children, none and other Details: María Elena Barrett Housing: apartment Number of Children: 1 Communication Needs: None Education Level: college Details: BS, nursing 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, [employer] Sexually active: Yes Do you think of yourself as: straight/heterosexual Current gender identity: female What type of physical activity do you participate in: none Bella/Spiritism: Orthodox Seatbelt use: always Drive intox or ride w/intox ambulette driver: No Working smoke detector in home: Yes Fire extinguisher in home: Yes Carbon monox detector in home: Yes Do you feel safe at home: Yes Do you feel safe in your relationship?: Yes Female Reproductive History Menstrual Age of Menarche: 12 control method: none History History 2 Para 2 Hx # Term Pregnancies 0 Multiple births 0 Hx # Pregnancies 0 Ectopic pregnancies 0 AB induced 0 Hx Number of Living Children 1 AB spontaneous 0 Past Pregnancies Del. Date GA/Weeks # Preg Succ Route Wgt Sex Labor Lgth Anesthesia Location [facility] 07/11/20 37 No 3194.991 g Male [facility] [place] 06/20/21 35 No Male [facility] Delivery Date: 07/11/20 Last Updated by: Meri Mccann CNM Pain in labor due to fibroids. non-reassuring FHR remote from delivery. Mild wound dehiscience. Jesse. Group B Strep pos. Delivery Date: 06/20/21 Last Updated by: Maria E Kolb M.D. RCS due to GHTN/PEC. Flaco Exam Narrative Exam Narrative: Physical Examination General: alert, awake, cooperative, resting comfortably, no acute distress HEENT: normocephalic, atraumatic; PERRL, EOM intact, mild conjunctival pallor; no nasal discharge; moist mucous membranes, oral and pharyngeal mucosa normal, tolerating secretions Neck: supple, trachea midline; full ROM Chest: normal to inspection Respiratory: normal respiratory effort, speaking in full sentences, clear to auscultation, no wheezing, rales or rhonchi Cardiac: Tachycardia, regular rhythm, S1S2 intact, no murmurs rubs or gallops GI: abdomen soft, non-tender, non-distended; no palpable mass or hepatosplenomegaly Skin: Mild pallor Neuro: AAOx3, normal speech, moving all extremities Psych: Appropriate mood and affect Course Vital Signs Vital signs: Vital Signs Pulse 107 H 06/15/22 18:06 Respiratory Rate 16 06/15/22 18:06 Blood Pressure 160/88 H 06/15/22 18:06 Pulse Oximetry 98 06/15/22 18:06 Pulse 107 H 06/15/22 18:06 Respiratory Rate 16 06/15/22 18:06 Respiratory Effort 06/15/22 18:11 Blood Pressure 160/88 H 06/15/22 18:06 Blood Pressure Position Sitting 06/15/22 18:06 Pulse Oximetry 98 06/15/22 18:06 Oxygen Delivery Method Room Air 06/15/22 18:06 Oxygen Flow Rate 0 06/15/22 18:06 Pain Level 2 06/15/22 18:06
[2022-06-15] MEDS: Normal Saline 1,000 ML 1000 ML IV (18:38)
[2022-06-15 18:39] LABS: Abs Immature Grans 0.03 10^3/uL (0.0-0.06); Absolute Basophil Count 0.03 10^3/uL (0.0-0.2); Absolute Eosinophil Count 0.21 10^3/uL (0.0-0.7); Absolute Lymphocyte Count 3.86 10^3/uL (1.2-3.4); Absolute Monocyte Count 0.61 10^3/uL (0.1-0.8); Absolute Neutrophil Count 6.37 10^3/uL (1.2-6.7); Basophils % 0.3; Eosinophils % 1.9; HCT 34.6 % (36.0-46.0); HGB 10.6 g/dL (11.2-15.7); Immature Grans % 0.3; Lymphocytes % 34.7; MCH 21.7 pg (27.0-33.0); MCHC 30.6 % (32.0-36.0); MCV 71 fL (80-95); MPV 9.8 fL (8.0-11.0); Monocytes % 5.5; Neutrophils % 57.3; Platelet Count 495 10^3/uL (130-400); RBC 4.89 10^6/uL (3.93-5.22); RDW 17.2 % (11.7-14.6); RDW-SD 43.3 fL; WBC 11.11 10^3/uL (4.4-10.8)
[2022-06-15 18:48] LABS: Diff Comment RBC Morph Reviewed; Microcytosis 2+
[2022-06-15 18:56] LABS: ALT 27 U/L (14-59); AST 13 U/L (15-37); Albumin 3.6 g/dL (3.4-5.0); Alkaline Phosphatase 37 U/L (46-116); Anion Gap 8.8 mmol/L (3-11); BUN 12 mg/dL (7-18); Bilirubin, Total 0.2 mg/dL (0.2-1.0); CO2 25.2 mmol/L (21.0-32.0); CREATININE 0.8 mg/dL (0.55-1.02); Calcium 9.1 mg/dL (8.5-10.1); Chloride 105 mmol/L (98-107); Glucose 118 mg/dL (74-106); INR 0.9 (0.9-1.1); PTT Activated 24.1 sec (21.0-27.5); Potassium 3.6 mmol/L (3.5-5.1); Prothrombin Time 9.3 sec (9.3-11.0); Sodium 139 mmol/L (136-145); Total Protein 7.9 g/dL (6.4-8.2)
--- NOTE | 2022-06-15 19:47 | GCONE_ITS ---
Date of service: 06/15/22 Time of Service: 19:47 Assessment and Plan Assessment and plan (1) Abnormal uterine bleeding: Status: Acute Assessment and plan: Patient has heavy abnormal uterine bleeding related to her uterine fibroids. She is recently had endometrial sampling which was benign. She is in the process of being scheduled for hysterectomy in the near future. She is currently using Aygestin, 5 mg every 6 hours with additional TXA 650 mg twice daily which she has just recently started. Her bleeding pattern this morning was significantly heavy and she was having some tachycardia, fatigue, and sleepiness. [facility] was found to have tachycardia which responded well to IV hydration. She was also found to have a hemoglobin of 10.6. At this point, she will be discharged home on her Aygestin, and TXA. We will arrange for an iron infusion for her tomorrow and attempt to facilitate her hysterectomy in the relatively ne ar future, next week if possible. All of her questions were answered today. (2) Anemia: Status: Chronic (3) Uterine fibroid: Status: Acute Qualifiers: Uterine leiomyoma location: unspecified location Qualified Code(s): D25.9 - Leiomyoma of uterus, unspecified History of Present Illness History of Present Illness Chief Complaint: Vaginal bleeding, dizziness Narrative: Patient for me this afternoon with increased and vaginal bleeding this morning. She has been on Aygestin and took her first dose of TXA this afternoon. She had been previously unable to obtain this. She had worsening some symptoms including dizziness, and fatigue. She has no nausea or vomiting. Her bleeding has somewhat diminished this afternoon. She was sent to the emergency department for evaluation where she was found to be tachycardic and somewhat hypertensive and baseline laboratory studies performed with a hemoglobin of 10.6. Consults Consult date: 06/15/22 Requesting physician: Patric Sinclair Review of Systems Narrative: As per HPI Constitutional Constitutional: Reports as per HPI, Denies body ache(s), Reports daytime sleepiness, Denies excessive sweating, Reports lethargy and Reports weakness Eyes Eyes: Reports system reviewed and no additional complaints, except as documented ENT Ears, Nose, Mouth, and Throat: Reports system reviewed and no additional complaints, except as documented Cardiovascular Cardiovascular: Denies chest pain, Denies chest pain with activity, Denies diaphoresis, Denies syncope and Reports rapid heart rate Respiratory Respiratory: Reports as per HPI, Denies chest congestion and Denies cough Gastrointestinal Gastrointestinal: Reports system reviewed and no additional complaints, except a s documented Genitourinary Genitourinary: Reports system reviewed and no additional complaints, except as documented, Reports abnormal vaginal bleeding, Reports menorrhagia and Denies pelvic pain Musculoskeletal Musculoskeletal: Reports system reviewed and no additional complaints, except as documented Neurologic Neurologic: Denies syncope and Reports weakness Psychiatric Psychiatric: Reports system reviewed and no additional complaints, except as documented Endocrine Endocrine: Denies excessive sweating PFSH All Active Problems (Updated 06/15/22 @ 19:46 by Patric Sinclair MD) Anemia (Chronic) Vaginal bleeding (Acute) Abnormal uterine bleeding (Acute) Uterine fibroid (Acute) Sleep disturbance (Acute) works night shifts Medical History BMI 31.0-31.9,adult Chronic hypertension H/O eczema dishydrotic, periorbital Derm in [place] History of migraine Pre-eclampsia added to pre-existing hypertension Sciatica Surgical History History of delivery 07/11/20. Non-reassuring FHR.Jesse. [id number]. Hx of section Status post repeat low transverse section Family History Father , leukemia Leukemia Mother Anxiety Arthritis Depression Maternal Grandmother Arthritis Hypertension Paternal Grandfather No problems noted. Paternal Grandmother Diabetes Hypertension Hyperlipidemia Brother Asthma Paternal Aunt BRCA positive BRCA 2 positive Maternal Grandfather Heart disease Social History Smoking/Tobacco Use Status: Never Smoking risk assessment performed?: Yes Alcohol Intake: current Alcohol Intake frequency: a few times a month Alcohol type: wine Drug use: Never Substance use type: does not use Adopted: No Foster care: No Household members: spouse, children, none and other Details: María Elena Barrett Housing: apartment Number of Children: 1 Communication Needs: None Education Level: college Details: BS, nursing 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, [employer] Sexually active: Yes Do you think of yourself as: straight/heterosexual Current gender identity: female What type of physical activity do you participate in: none Bella/Latter Day: Mormonism Seatbelt use: always Drive intox or ride w/intox ups driver: No Working smoke detector in home: Yes Fire extinguisher in home: Yes Carbon monox detector in home: Yes Do you feel safe at home: Yes Do you feel safe in your relationship?: Yes Female Reproductive History Menstrual Age of Menarche: 12 control method: none History History 2 Para 2 Hx # Term Pregnancies 0 Multiple births 0 Hx # Pregnancies 0 Ectopic pregnancies 0 AB induced 0 Hx Number of Living Children 1 AB spontaneous 0 Past Pregnancies Del. Date GA/Weeks # Preg Succ Route Wgt Sex Labor Lgth Anesth esia Location [facility] 07/11/20 37 No 7 lb 0.7 oz Male [place] 06/20/21 35 No Male [employer] Delivery Date: 07/11/20 Last Updated by: Meri Mccann CNM Pain in labor due to fibroids. non-reassuring FHR remote from delivery. Mild wound dehiscience. Jesse. Group B Strep pos. Delivery Date: 06/20/21 Last Updated by: Maria E Kolb M.D. RCS due to GHTN/PEC. Flaco Exam Narrative Exam Narrative: Patient seen this evening while in the emergency department Const General: cooperative, healthy appearing and not anxious HENMT Head: normal to inspection Eyes Conjunctivae: conjunctival abnormality (Pallor) Pupils: PERRL Resp Effort & Inspection: normal respiratory effort and no cough Cardio Rate: tachycardic (Improved after IV hydration) GI Inspection: normal to inspection, no edema and no incisions Palpation: soft Results Last Vital Signs Pulse 107 H 06/15/22 18:06 Resp 16 06/15/22 18:06 BP 160/88 H 06/15/22 18:06 Pulse Ox 98 06/15/22 18:06 Labs Result diagrams: 06/15/22 18:12 06/15/22 18:12 Labs: Laboratory Results - last 24 hr 06/15/22 06/15/22 06/15/22 18:12 18:12 18:12 WBC 11.11 H RBC 4.89 Hgb 10.6 L Hct 34.6 L MCV 71 L MCH 21.7 L MCHC 30.6 L RDW 17.2 H Plt Count 495 H MPV 9.8 Immature Gran % 0.3 Neutrophils % 57.3 Lymphocytes % 34.7 Monocytes % 5.5 Eosinophils % 1.9 Basophils % 0.3 Nucleated RBC % 0.0 Absolute Neutrophils 6.37 Absolute Lymphocytes 3.86 H Absolute Monocytes 0.61 Absolute Eosinophils 0.21 Absolute Basophils 0.03 RBC Morphology See Below Microcytosis 2+ PT 9.3 INR 0.9 APTT 24.1 Sodium 139 Potassium 3.6 Chloride 105 Carbon Dioxide 25.2 Anion Gap 8.8 BUN 12 Creatinine 0.8 Est GFR (CKD-EPI 2020) 103.50 Glucose 118 H Calcium 9.1 Total Bilirubin 0.2 AST 13 L ALT 27 Alkaline Phosphatase 37 L Total Protein 7.9 Albumin 3.6 Patient ABO/Rh Antibody Screen 06/15/22 18:12 WBC RBC Hgb Hct MCV MCH MCHC RDW Plt Count MPV Immature Gran % Neutrophils % Lymphocytes % Monocytes % Eosinophils % Basophils % Nucleated RBC % Absolute Neutrophils Absolute Lymphocytes Absolute Monocytes Absolute Eosinophils Absolute Basophils RBC Morphology Microcytosis PT INR APTT Sodium Potassium Chloride Carbon Dioxide Anion Gap BUN Creatinine Est GFR (CKD-EPI 2020) Glucose Calcium Total Bilirubin AST ALT Alkaline Phosphatase Total Protein Albumin Patient ABO/Rh A Positive Antibody Screen NEGATIVE
== END 2022-06-15 19:56 | disposition home or self-care (01) ==
PROVIDERS: Emergency Provider Emergency Medicine; PCP Nurse Practitioner Adult Health
DX: N93.9 Abnormal uterine and vaginal bleeding, unspecified (principal); D64.9 Anemia, unspecified; I10 Essential (primary) hypertension
CPT/HCPCS: 80053; 86850; 86900; 86901; 93005; 96360; 99284; 85025; 85610; 85730; 93010

== ENCOUNTER 2022-06-17 03:58 | Outpatient (RCR) | payer BC, SELFPAY ==
[2022-06-17] MEDS: Normal Saline Flush 10 ML SYR IVP (08:57)
[2022-06-17] MEDS: IRON SUCROSE COMPLEX 200 MG in Normal Saline 100 ML 66 MG IVPB (08:57)
== END 2022-07-06 23:59 | disposition home or self-care (01) ==
LOC: INF 03:58
PROVIDERS: PCP Nurse Practitioner Adult Health; Visit Provider Obstetrics & Gynecology
DX: D64.9 Anemia, unspecified (principal); N93.9 Abnormal uterine and vaginal bleeding, unspecified
CPT/HCPCS: 96365; 96366; J1756

== ENCOUNTER 2022-06-22 03:03 | Outpatient (CLI) | payer BC, SELFPAY ==
[2022-06-22 14:23] LABS: Abs Immature Grans 0.01 10^3/uL (0.0-0.06); Absolute Basophil Count 0.01 10^3/uL (0.0-0.2); Absolute Eosinophil Count 0.21 10^3/uL (0.0-0.7); Absolute Lymphocyte Count 2.22 10^3/uL (1.2-3.4); Absolute Monocyte Count 0.56 10^3/uL (0.1-0.8); Absolute Neutrophil Count 3.52 10^3/uL (1.2-6.7); Basophils % 0.2; Eosinophils % 3.2; HCT 33.3 % (36.0-46.0); HGB 9.9 g/dL (11.2-15.7); Immature Grans % 0.2; MCH 21.3 pg (27.0-33.0); MCHC 29.7 % (32.0-36.0); MCV 72 fL (80-95); Monocytes % 8.6; Neutrophils % 53.8; Platelet Count 406 10^3/uL (130-400); RBC 4.64 10^6/uL (3.93-5.22); RDW-SD 46.5 fL; WBC 6.53 10^3/uL (4.4-10.8)
[2022-06-22 14:36] LABS: Microcytosis 1+
== END 2022-06-22 03:04 | disposition home or self-care (01) ==
LOC: LBO 03:04
PROVIDERS: PCP Nurse Practitioner Adult Health; Visit Provider Obstetrics & Gynecology
DX: D25.9 Leiomyoma of uterus, unspecified (principal); N93.8 Other specified abnormal uterine and vaginal bleeding; D64.9 Anemia, unspecified; Z01.818 Encounter for other preprocedural examination; Z01.812 Encounter for preprocedural laboratory examination
CPT/HCPCS: 36415; 86850; 86900; 86901; 85025

== ENCOUNTER 2022-06-24 06:03 | Inpatient (IN) | payer BC, SELFPAY ==
[2022-06-24] VITALS (18 sets, daily range): BP systolic 86–130; BP diastolic 37–85; PULSE 63–101; RESP 13–23; TEMP 36–37; O2SAT 95–99; BMI 33.0
[2022-06-24 06:55] LABS: Source Nasal/Nares
--- NOTE | 2022-06-24 07:00 | W.ANESPRE ---
General Info Date of Service Date Performed: 06/24/22 Height: 5 ft 9 in Weight: 101.7 kg Body Mass Index (BMI): 33.0 Surgical Procedure: Operation Date: 06/24/22 07:40 Proposed Procedure Side Surgeon p Hysterectomy Vaginal Laparoscopic Assist, B/L Salpingectomy, Poss. CAITIE, Cysto Rosa Anderson DO Meds Allergies and Home Medications Allergies Allergy/AdvReac Type Severity Reaction Status Date / Time ferrous fumarate Allergy Intermediate Facial rash Verified 06/24/22 06:44 [From 1 + Iron] folic acid Allergy Intermediate Facial rash Verified 06/24/22 06:44 [From 1 + Iron] vit,tx Allergy Intermediate Facial rash Verified 06/24/22 06:44 calc,iron,folic acd(less thn 1 mg) [From 1 + Iron] vitamins with Allergy Intermediate Facial rash Verified 06/24/22 06:44 calcium [From 1 + Iron] shellfish derived Allergy Throat Verified 06/24/22 06:44 Swlling, Itching diphenhydramine AdvReac Intermediate eczema Verified 06/24/22 06:44 [From Benadryl] acts up cocamidopropyl betaine AdvReac Skin Rash Verified 06/24/22 06:44 Home Medication Medication Instructions Recorded levonorgestrel 20 mcg/24 hours (8 1 insert intrauterine ONCE #1 ea 08/20/21 yrs) 52 mg intrauterine device (Mirena) norethindrone acetate 5 mg tablet 5 mg PO BID #60 tabs 04/23/22 (Aygestin) tranexamic acid 650 mg tablet 650 mg PO BID #60 tabs 06/14/22 Current Visit Medications: Current Medications Generic Name Dose Route Start Last Admin Trade Name Freq PRN Reason Stop Dose Admin Ringer's Solution 1,000 mls @ 125 mls/hr 06/24/22 06:00 IV 07/23/22 23:59 INFUSION DAGMAR Cefazolin Sodium/Dextrose 2 gm in 50 mls @ 100 mls/hr 06/24/22 06:00 Ancef Duplex IVPB 06/24/22 16:00 PREOP DAGMAR IV Miscellaneous Supplies 1 each 06/24/22 06:00 Iv Access IV 07/23/22 23:59 DIRECTED DAGMAR Sodium Chloride 0 ml 06/24/22 06:00 Normal Saline Flush 10 Ml Syr IV 07/23/22 23:59 PRN PRN Sodium Chloride 0 ml 06/24/22 06:00 Normal Saline 10 Ml Vial IJ 07/23/22 23:59 DIRECTED PRN Sterile Water 0 ml 06/24/22 06:00 Water,Injection,Sterile 10 Ml Vial IJ 07/23/22 23:59 DIRECTED PRN PFSH Active Problems Active Problems: Problem Status Onset Code Sleep disturbance G47.9 Uterine fibroid D25.9 Abnormal uterine bleeding N93.9 Anemia D64.9 Vaginal bleeding N93.9 Medical History Medical History BMI 31.0-31.9,adult Chronic hypertension pt. denies H/O eczema dishydrotic, periorbital Derm in [place] History of migraine Pre-eclampsia added to pre-existing hypertension Sciatica Surgical History Surgical History History of delivery 07/11/20. Non-reassuring FHR.Jesse. [id number]. Hx of section Status post repeat low transverse section Tobacco Smoking/Tobacco Use Status: Never Alcohol Alcohol Intake: current Alcohol intake frequency: holidays/special occasions only Alcohol type: wine Substance Use Substance use: Never Substance use type: does not use Prental History History 2 Para 2 Hx # Term Pregnancies 0 Multiple births 0 Hx # Pregnancies 0 Ectopic pregnancies 0 AB induced 0 Hx Number of Living Children 1 AB spontaneous 0 Past Pregnancies Del. Date GA/Weeks # Preg Succ Route Wgt Sex Labor Lgth Anesthesia Location [facility] 07/11/20 37 No 3194.991 g Male [facility] 06/20/21 35 No Male [place] [facility] Delivery Date: 07/11/20 Last Updated by: Meri Mccann CNM Pain in labor due to fibroids. non-reassuring FHR remote from delivery. Mild wound dehiscience. Jesse. Group B Strep pos. Delivery Date: 06/20/21 Last Updated by: Maria E Kolb M.D. RCS due to GHTN/JEANNE. Flaco Vital Signs and Lab Results Vital Signs Most Recent Vital Signs in EMR: Most Recent Vital Signs Temp Pulse Resp BP Pulse Ox 36.0 C L 91 H 18 130/85 98 06/24/22 06:20 06/24/22 06:20 06/24/22 06:20 06/24/22 06:20 06/24/22 06:20 Lab Results Blood Type / Crossmatch: Patient ABO/Rh A Positive 06/22/22 Antibody Screen NEGATIVE 06/22/22 Complete Blood Count: White Blood Count 6.53 10^3/uL (4.4-10.8) 06/22/22 14:13 Red Blood Count 4.64 10^6/uL (3.93-5.22) 06/22/22 14:13 Hemoglobin 9.9 g/dL (11.2-15.7) L 06/22/22 14:13 Hematocrit 33.3 % (36.0-46.0) L 06/22/22 14:13 Platelet Count 406 10^3/uL (130-400) H 06/22/22 14:13 Complete Metabolic Panel: Sodium 139 mmol/L (136-145) 06/15/22 18:12 Potassium 3.6 mmol/L (3.5-5.1) 06/15/22 18:12 Chloride 105 mmol/L (98-107) 06/15/22 18:12 Carbon Dioxide 25.2 mmol/L (21.0-32.0) 06/15/22 18:12 BUN 12 mg/dL (7-18) 06/15/22 18:12 Creatinine 0.8 mg/dL (0.55-1.02) 06/15/22 18:12 Est GFR (CKD-EPI 2020) 103.50 (mL/min/1.73m2) 06/15/22 18:12 Calcium 9.1 mg/dL (8.5-10.1) 06/15/22 18:12 Albumin 3.6 g/dL (3.4-5.0) 06/15/22 18:12 Glucose 118 mg/dL (74-106) H 06/15/22 18:12 Liver Function Panel: Alanine Aminotransferase (ALT/SGPT) 27 U/L (14-59) 06/15/22 18:12 Aspartate Amino Transf (AST/SGOT) 13 U/L (15-37) L 06/15/22 18:12 Coagulation Panel: INR International Normalized Ratio 0.9 (0.9-1.1) 06/15/22 18:12 Prothrombin Time 9.3 sec (9.3-11.0) 06/15/22 18:12 Activated Partial Thromboplast Time 24.1 sec (21.0-27.5) 06/15/22 18:12 Cardiac Panel: No Data to Display Arterial Blood Gas: No Data to Display Venous Blood Gas: No Data to Display Pancreas Panel: No Data to Display Thyroid Panel: No Data to Display Infectious Disease: Coronavirus (COVID-19)(PCR) Negative (Negative) 06/24/22 06:36 Coronavirus 2019 Source Nasal/Nares 06/24/22 06:36 Blood Cultures: No Data to Display Toxicology Panel: No Data to Display Panel: No Data to Display Anesthesia Assessment and Plan Anesthesia History Personal History: PONV Family History: No Family History of Anesthesia Complications Exercise Tolerance Exercise Tolerance: Metabolic Equivalents>4 Pertinent Negatives Pertinent Negatives: No Symptoms of GERD, No Major Cardiovascular Symptoms or Complaints, No Major Pulmonary Symptoms or Complaints and No History of CVA/TIA Cardiac & Pulmonary Exam Cardiac Exam: Normal S1/S2 Heart Sounds Pulmonary Exam: Clear Bilateral Breath Sounds Implantable Cardiac Device Does patient have a Pacemaker or an ICD?: No Airway Exam Known Difficult Airway: No Mallampati Class: 2 Mouth Opening: Normal (> 3cm) Thyromental Distance: Greater than 3 cm Neck Range of Motion: Full ROM Neck Circumference: Normal Teeth Condition: Normal Dentition ASA Classification ASA Score: ASA 2 Emergency Case?: No NPO Status NPO Status: NPO Clears >2 hours, Solids >8 hours Status Status: Not Per Patient and Negative HCG Anesthesia Plan Resuscitation Status: Full Code Anesthesia Technique: General Anesthesia Airway Planned: Endotracheal Tube Pain Management: Intrathecal Analgesia Monitors Used: Standard Monitors
[2022-06-24] MEDS: Normal Saline Flush 10 ML SYR IV (07:10)
[2022-06-24] MEDS: Lactated Ringers 1,000 ML 125 ML IV ×2 (07:13→11:29)
[2022-06-24 07:27] LABS: COVID-19 PCR Negative (Negative)
[2022-06-24] MEDS: ceFAZolin 2 GM/50 ML BAG IVPB (07:55)
--- NOTE | 2022-06-24 09:01 | UTER_PTH ---
PATIENT: Valeria Hess LOC: OBS U#:[id number] AGE/SX: 26/F ROOM: OBS.302 RE06/24/[address]: Rosa Anderson DO : 1995 BED: A DIS: 06/25/2022 SPEC #: [id number] RECD: 06/24/22 12:13 STATUS: COSME REQ #: [id number] RUPESH: 06/24/22 09:[address]: Rosa Anderson DEPT: Surgical Specimen RECD BY: Mary Puentes ENTERED: 06/24/22 12:14 SP TYPE: UTER OTHR DR: Nedra Bunn APRN Tissues: 1 - UTERUS W OR W/O OVARIES(NOT TUMOR/PROLAPSE) Procedures: GROSS AND MICRO LEVEL 5 Comments: [id number]
[2022-06-24] MEDS: Bupivacaine 0.5% Pres-Free 30 ML VIAL (09:16)
--- NOTE | 2022-06-24 10:47 | ROE_ITS ---
Date of service: 06/24/22 Time of Service: 10:47 Operative Note Operative Note DATE OF PROCEDURE: 06/24/22 PRE-OP DIAGNOSIS: Enlarged fibroid uterus, abnormal uterine bleeding, symptomatic anemia POST-OP DIAGNOSIS: same PROCEDURE: Exam under anesthesia, total abdominal hysterectomy, bilateral salpingectomy, cystoscopy. SURGEON: Rosa Anderson ASSISTING SURGEON: Kamla Hawkins ANESTHESIA TYPE: Local By Surgeon, General LMA/ETT and Spinal Refer to Anesthesia Record ESTIMATED BLOOD LOSS: 250 PATHOLOGY: other (Bilateral fallopian tubes, uterus, cervix) COMPLICATIONS: None Patient was transported to: PACU Patient's condition: stable Implants: None Indications: Ongoing heavy abnormal uterine bleeding with symptomatic uterine fibroids, nonresponsive to medical therapy including hormonal regulation with Aygestin, IUD, TXA. Findings: Markedly enlarged, 20-week size globular fibroid uterus. Normal-appearing fallopian tubes. Normal-appearing ovaries. Postoperative bladder cystoscopy with atraumatic bladder, patent ureteric orifice ease bilaterally. Adhesions of the bladder to the lower uterine segment. Markedly thin lower uterine segment. Procedure Description: After full informed consent was obtained, and negative status verified, patient was taken to the operating suite with an IV running. She was placed in the seated position for administration of spinal anesthesia for postoperative pain control. She was then placed in the dorsal supine position and exam under anesthesia performed after administration of general anesthesia. Exam under anesthesia revealed a uterus that was approximately 20 weeks size, bulky in the lower uterine segment though is reasonably mobile. In light of the size, and bulkiness of the lower uterine segment while patient was relaxed, attempt at laparoscopic hysterectomy was foregone. At this point, she had a vaginal preparation and Kwok catheter was inserted. The remainder of prepping and draping was performed with the patient in the supine position. Infiltration of her previous Pfannenstiel skin incision was made with quarter percent Marcaine for postoperative pain control. A Pfannenstiel skin incision was made through her previous scar and carried down to the fascia. The fascia was then nicked in the midline and the fascial incision extended laterally. The fascia was elevated from the rectus muscle, rectus muscle identified, in the midline allowing access to the peritoneum. The peritoneum was elevated entered sharply. The peritoneal incision was then extended superiorly and inferiorly and a bladder blade was inserted for visualization. The uterus was noted to be as previously described, bulky, globular, with multiple fibroids. The uterus was elevated through the incision and attention turned first to the left fallopian tube which was clamped transected and ligated and similar procedure carried out on the right fallopian tube. The left round ligament was then identified, suture ligated, and transected allowing access to the broad ligament. Similar procedure was carried out on the right round ligament, allowing access to the right broad ligament. With meticulous sharp dissection the adherent bladder was sharply dissected away from the lower uterine segment. At the right aspect of this incision there is noted to be a portion of the bladder tethered to the lower uterine segment. Lower uterine segment was noted to be markedly thin and the cervical cavity was entered at this location. Bladder was noted to be well down below the lower uterine segment and cervix wi thout evidence of trauma. Attention was then turned to the right utero-ovarian ligament which was clamped transected and ligated and the left utero-ovarian ligament was then clamped transected and suture-ligated. The uterine vessels were identified on the right which were then clamped, transected, and suture- ligated and a similar procedure was carried out on the left uterine vessels. This allowed the fundus to be transected from the lower uterine segment and cervix. Removal of the uterine fundus allowed better visualization of the lower uterine segment and cervix. This area was then elevated and the remainder of the vascular pedicles to the cervix were clamped, transected, and suture- ligated. Right angle Zeppelin clamps were placed across the cervical vaginal interface and the cervix and lower segment was then removed from the abdomen. The vaginal cuff was closed in a running locked fashion after incorporation of the vaginal apices. Cuff closure was noted to be hemostatic. At this point the abdomen was irrigated with copious amounts of normal saline. There was 1 area at the left uterine pedicle which was not hemostatic which was oversewn with a stitch of 0 Vicryl suture. There was also noted to be 1 area at the anterior portion of the vaginal cuff closure with 1 small pumping arterial which was suture-ligated. Again the abdomen was irrigated with copious amounts of normal saline. All pedicles were noted to be hemostatic. At this point all instruments were removed from the abdomen and the fascial incision closed using 0 Vicryl suture. Subcutaneous tissue irrigated with copious amounts of warm normal saline and reapproximated with 3-0 Vicryl suture in a simple interrupted fashion. The skin edge was then reapproximated in a subcuticular stitch of 4-0 undyed Monocryl suture. Steri-Strips and sterile dressing was placed. At this point, due to close proximity of the bladder to the lower uterine segment and bulkiness of the fibroid uterus cystoscopy was p erformed. Patient received intravascular methylene blue for identification of urine jets in a more accessible fashion. Cystoscopy was performed after instillation of normal saline into the bladder. The entirety of the bladder including dome was without evidence of trauma. The right and left ureteric orifice ease were noted to be jetting blue-tinged urine bilaterally. With completion of the cystoscopy, the procedure was then terminated. Kwok catheter was reinserted for continuous bladder drainage. Patient awoke from anesthesia with ease and was taken recovery room in stable condition. She is a Kwok catheter draining blue-tinged urine. EBL: 250 mL Pathology: Bilateral fallopian tubes, uterus, and cervix for examination. Medications: None apparent Fluids: Crystalloid per anesthesia Findings: As above. Normal-appearing fallopian tubes and ovaries. Bulky approximately 20 weeks size globular fibroid uterus. Adhesions of the bladder to the lower uterine segment where the lower uterine segment was relatively thin.
--- NOTE | 2022-06-24 11:47 | W.ANESPOSTOP ---
Postoperative Evaluation Date, Time and Location Date Performed: 06/24/22 Time Performed: 11:45 Patient Location: PACU Vital Signs Most Recent Imported Vital Signs: Most Recent Vital Signs Temp Pulse Resp BP Pulse Ox 36.6 C 73 21 102/53 L 96 06/24/22 11:20 06/24/22 11:20 06/24/22 11:20 06/24/22 11:20 06/24/22 11:20 Pain Score Most Recent Pain Score: Most Recent Pain Score Pain Level 5 06/24/22 11:20 Assessment Mental Status: Awake (Alert & Oriented to Patient Baseline) Airway and Respiratory Function: Patent airway with normal (patient baseline) respiratory exam Cardiovascular Function: Hemodynamically Stable Hydration Status: Adequately Hydrated Nausea & Vomiting: No Nausea or Vomiting Pain: Pain is tolerable per patient Peripheral Nerve Block: Patient did not receive a nerve block
--- NOTE | 2022-06-24 14:21 | W.PM.PROGNOT ---
Date of Service Date of service: 06/24/22 Time of Service: 14:21 Assessment and Plan Assessment and plan (1) Status post total abdominal hysterectomy: Status: Acute Assessment and plan: Postoperative day #0 status post total abdominal hysterectomy with bilateral salpingectomy and lysis of adhesions. Overall doing well. Asked surgery explained today. CBC in the morning. Ambulate. Regular diet. Kwok catheter until ambulatory. All questions answered. Subjective Subjective Interval history since last seen: Patient seen and surgery explained today. Doing well. Vital signs are stable. Pain is well controlled. Overall she is feeling better than before her surgery. She does have some itching related to her intrathecal. Orders were placed by anesthesia. Objective Last Vital Signs Temp 97.9 F 06/24/22 11:20 Pulse 73 06/24/22 11:20 Resp 21 06/24/22 11:20 BP 102/53 L 06/24/22 11:20 Pulse Ox 96 06/24/22 11:20 Laboratory Results - last 24 hr 06/24/22 06:36 COVID-19 Source Nasal/Nares SARS-CoV-2 (PCR) Negative Time Spent with Patient Time Spent with Patient: <25 minutes Time was spent: preparing to see the patient(eg.review tests) and counseling the patient
[2022-06-24] MEDS: NALBUPHINE 5 MG in Normal Saline 50 ML 100 MG IVPB (14:52)
[2022-06-24] MEDS: Ketorolac 30 MG/ML VIAL 15 MG IVP ×2 (16:30→21:57)
[2022-06-24] MEDS: Docusate Sodium 100 MG CAP PO (21:58)
[2022-06-25] MEDS: Ketorolac 30 MG/ML VIAL 15 MG IVP (03:50)
[2022-06-25] MEDS: Normal Saline Flush 10 ML SYR IV (03:51)
[2022-06-25 04:00] VITALS: BP 113/74; PULSE 94; RESP 16; TEMP 37; O2SAT 100
[2022-06-25 06:39] LABS: HCT 30.6 % (36.0-46.0); HGB 8.8 g/dL (11.2-15.7); MCH 20.7 pg (27.0-33.0); MCHC 28.8 % (32.0-36.0); MCV 72 fL (80-95); MPV 9.7 fL (8.0-11.0); Platelet Count 349 10^3/uL (130-400); RBC 4.26 10^6/uL (3.93-5.22); RDW 18.6 % (11.7-14.6); RDW-SD 46.6 fL; WBC 12.02 10^3/uL (4.4-10.8)
[2022-06-25 08:00] VITALS: BP 118/70; PULSE 84; RESP 112; TEMP 37.1
--- NOTE | 2022-06-25 08:23 | W.PM.PROGNOT ---
Date of Service Date of service: 06/25/22 Time of Service: 08: Assessment and Plan Assessment and plan (1) Status post total abdominal hysterectomy: Status: Acute Assessment and plan: Postoperative day #1 status post total abdominal hysterectomy with bilateral salpingectomy. Doing exceedingly well. Globin stable at 8.8 with the appropriate drop due to blood loss. Vital signs are stable. Ambulating, tolerating a regular diet, taking oral pain medication. Desires discharge to home. Instructions were given. Subjective Subjective Interval history since last seen: Patient seen and examined this morning. Doing well. Ambulating. Tolerating regular diet and oral pain medication. Kwok catheter is out patient has showered and is anticipating discharge home. All of her questions were answered this morning. Exam Const General: cooperative, healthy appearing, comfortable and no acute distress Nutritional Appearance: average body habitus HENMT Head: normal to inspection Eyes General: appearance normal, both eyes and all related structures Resp Effort & Inspection: normal respiratory effort, normal respiratory pattern, no cough and not labored Cardio Rate: regular rate GI Inspection: normal to inspection and no incisions (Clean, dry, intact.) Extrem General: normal to inspection and no clubbing, cyanosis or edema Psych Appearance: grossly normal Objective Last Vital Signs Temp 98.6 F 06/25/22 04:00 Pulse 94 H 06/25/22 04:00 Resp 16 06/25/22 04:00 BP 113/74 06/25/22 04:00 Pulse Ox 100 06/25/22 04:00 Laboratory Results - last 24 hr 06/25/22 06:00 WBC 12.02 H RBC 4.26 Hgb 8.8 L Hct 30.6 L MCV 72 L MCH 20.7 L MCHC 28.8 L RDW 18.6 H Plt Count 349 MPV 9.7 Time Spent with Patient Time Spent with Patient: <25 minutes Time was spent: preparing to see the patient(eg.review tests), ordering medications,tests, procedures, referring, communicating with other health health care specialist, indepentently interpreting results and counseling the patient
--- NOTE | 2022-06-25 08:32 | DSE_ITS ---
Date of service: 06/25/22 Time of Service: 08:32 DS: Diagnosis Discharge Diagnosis (1) Status post total abdominal hysterectomy: Status: Acute Asessment and Plan: Postoperative day #1 status post total abdominal hysterectomy with bilateral salpingectomy. Doing well. Discharge home today. Follow-up in the office in 2 and 6 weeks. Ambulate. Regular diet. Pain medication sent to the pharmacy. C ontinue Colace as needed. Discharge Plan Disposition Condition: Good Discharge Details Reason For Visit: Status Post Total Abdominal Hysterectomy Admit Date/Time: 06/24/22 06:03 Admit Provider: Rosa Anderson Attending Provider: Rosa Anderson Primary Care Provider: Nedra Bunn Hospital Course Hospital Course: Patient was admitted on 06/24/2022 for possible laparoscopic assisted vaginal hysterectomy. With an exam under anesthesia her uterus was noted to be markedly enlarged and not mobile enough to be successful with a laparoscopic procedure. She had a total abdominal hysterectomy with bilateral salpingectomy and lysis of adhesions for a markedly enlarged fibroid uterus. She had appropriate intraoperative blood loss of approximately 250 cc. She had an uncomplicated postoperative course and was discharged home postoperative day #1 ambulating, tolerating a regular diet and oral pain medication with stable vital signs. Her pathology at this point is pending her discharge hemoglobin is 8.8. All questions were answered. Home Meds and New Rx's Prescriptions: New oxycodone-acetaminophen [Percocet] 5-325 mg tablet 1 tab PO Q8H PRNQty: 10 0RF ibuprofen 800 mg tablet 800 mg PO Q8H Qty: 60 1RF docusate sodium [Colace] 100 mg capsule 100 mg PO BID Qty: 30 0RF Discontinued norethindrone acetate [Aygestin] 5 mg tablet 5 mg PO BID Qty: 60 3RF Mirena 20 mcg/24 hours (7 yrs) 52 mg intrauterine device 1 insert intrauterine ONCE Qty: 1 0RF Rx Instructions: as a single dose tranexamic acid 650 mg tablet 650 mg PO BID Qty: 60 2RF Discharge Instructions Additional Instructions: Follow-up in women's wellness with Dr. 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 [employer] Engine SurgeryW/Incision Activity:: Pelvic rest and no heavy Equipment/Supplies:: No Equipment Needed Diet:: As Tolerated DS: Summary Time Spent with Patient providing and/or coordinating discharge services: Less than 30 minutes Status at Discharge Functional status at discharge: independent ambulation Overall status at discharge: patient is progressing back to baseline Mental Status: mental status grossly normal Speech and Movement: speech and movement normal Mood: congruent mood and angry Affect: normal affect Exam Narrative Exam Narrative: Please see physical exam from progress note dated 06/25/2022 Psych Mental Status: mental status grossly normal Speech and Movement: speech and movement normal Mood: congruent mood and angry Affect: normal affect DS: Data Vitals/I&O Vitals and I&O: Vital Signs Temperature 98.6 F 06/25/22 04:00 Temperature Source Oral 06/25/22 04:00 Pulse 94 H 06/25/22 04:00 Pulse Rhythm Regular 06/24/22 19:50 Respiratory Rate 16 06/25/22 04:00 Respiratory Effort Non-Labored 06/24/22 19:50 Respiratory Depth Normal 06/24/22 19:50 Respiratory Pattern Normal 06/24/22 19:50 Blood Pressure 113/74 06/25/22 04:00 Pulse Oximetry 100 06/25/22 04:00 Respiratory End-tidal CO2 30 06/24/22 10:55 Oxygen Delivery Method Room Air 06/25/22 04:00 Oxygen Flow Rate 0 06/25/22 04:00 Pain Level 1 06/25/22 04:00 Intake & Output 06/24/22 06/24/22 06/25/22 11:59 23:59 11:59 Intake Total 1050 / 2250 1200 / 2250 Output Total 400 / 1275 875 / 1275 650 / 650 Balance 650 / 975 325 / 975 -650 / -650 Weight 224 lb 3.362 oz Intake: IV 1050 / 1050 Oral 1200 / 1200 Output: Urine 150 / 1025 875 / 1025 650 / 650 Estimated Blood Loss 250 / 250 Other: Urine Color Pale Green Pale Yellow Indigo Green Urine Appearance Clear Clear Clear Urine Odor None Comment Urine blue following methylene blue Emesis Description None Voiding Methods Indwelling Catheter Data Completed and Pending Labs on day of discharge: Labs from last 24 hours 06/25/22 06:00 WBC 12.02 H RBC 4.26 Hgb 8.8 L Hct 30.6 L MCV 72 L MCH 20.7 L MCHC 28.8 L RDW 18.6 H Plt Count 349 MPV 9.7 PFSH All Active Problems Status post total abdominal hysterectomy (Acute) Sleep disturbance (Acute) works night shifts Uterine fibroid (Acute) Abnormal uterine bleeding (Acute) Anemia (Chronic) Vaginal bleeding (Acute) Medical History BMI 31.0-31.9,adult Chronic hypertension pt. denies H/O eczema dishydrotic, periorbital Derm in [place] History of migraine Pre-eclampsia added to pre-existing hypertension Sciatica Surgical History History of delivery 07/11/20. Non-reassuring FHR.Jesse. [id number]. Hx of section Status post repeat low transverse section Family History Father , leukemia Leukemia Mother Anxiety Arthritis Depression Maternal Grandmother Arthritis Hypertension Paternal Grandfather No problems noted. Paternal Grandmother Diabetes Hypertension Hyperlipidemia Brother Asthma Paternal Aunt BRCA positive BRCA 2 positive Maternal Grandfather Heart disease Social History Smoking/Tobacco Use Status: Never Smoking risk assessment performed?: Yes Alcohol Intake: current Alcohol Intake frequency: holidays/special occasions only Alcohol type: wine Drug use: Never Substance use type: does not use Adopted: No Foster care: No Household members: spouse, children, none and other Details: Arnold María Elena Housing: apartment Number of Children: 1 Communication Needs: None Education Level: college Details: BS, nursing 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, [employer] Sexually active: Yes Do you think of yourself as: straight/heterosexual Current gender identity: female What type of physical activity do you participate in: none Bella/Evangelical: Mormonism Seatbelt use: always Drive intox or ride w/intox production truck 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 Date GA/Weeks # Preg Succ Route Wgt Sex Labor Lgth Anesth esia Location [facility] 07/11/20 37 No 7 lb 0.7 oz Male [facility] 06/20/21 35 No Male [employer] Delivery Date: 07/11/20 Last Updated by: Meri Mccann CNM Pain in labor due to fibroids. non-reassuring FHR remote from delivery. Mild wound dehiscience. Group B Strep pos. Delivery Date: 06/20/21 Last Updated by: Maria E Kolb M.D. RCS due to GHTN/JEANNE. Flaco Time Spent with Patient Time Spent with Patient: <45 minutes Time was spent: preparing to see the patient(eg.review tests), ordering medications,tests, procedures, counseling the patient and care coordination
== END 2022-06-25 10:00 | disposition home or self-care (01) | DRG 743 ==
LOC: PDS 06:06 → OBS 12:09
PROVIDERS: Admitting Provider Obstetrics & Gynecology; PCP Nurse Practitioner Adult Health; Visit Provider Obstetrics & Gynecology
PROC: 0UT9FZZ Resection of Uterus, Via Natural or Artificial Opening With Percutaneous Endoscopic Assistance (ICD-10-PCS; CPT 58150; principal; 2022-06-24 07:30)
DX: D25.9 Leiomyoma of uterus, unspecified (principal); D64.9 Anemia, unspecified; N93.8 Other specified abnormal uterine and vaginal bleeding; M54.30 Sciatica, unspecified side; N72 Inflammatory disease of cervix uteri
CPT/HCPCS: 58150; 52000; 36415; 81025; 85027; 87635; 88307; J0690; J1100; J1885; J2250; J2405; J2704; J3010; J3490

== ENCOUNTER 2023-06-30 12:38 | Outpatient (REF) | payer BC, SELFPAY ==
[2023-06-30 15:20] LABS: Bilirubin Negative (Negative); Blood Large (Negative); Clarity Turbid (Clear); Glucose Negative (Negative); Ketones Negative (Negative); Leukocyte Esterase Large (Negative); Nitrite Positive (Negative); Urobilinogen 0.2 mg/dL (Up to 0.2); pH 6.5 (5-8)
[2023-06-30 15:27] LABS: Bacteria Moderate HPF (Negative); Epithelial Cells Few HPF (Negative); RBC >50 HPF (0-2); WBC >50 HPF (0-5)
[2023-06-30 15:28] LABS: C & S Indicated? Yes; Casts Negative LPF (Negative); Crystals Negative HPF (Negative); Mucus Heavy (Negative)
== END 2023-06-30 12:39 | disposition home or self-care (01) ==
LOC: LBN 12:38
PROVIDERS: PCP Nurse Practitioner Adult Health; Visit Provider Nurse Practitioner Adult Health
DX: R30.0 Dysuria (principal)
CPT/HCPCS: 87077; 81003; 81015; 87086; 87186

== ENCOUNTER 2023-07-12 18:45 | Outpatient (REF) | payer BC, SELFPAY ==
[2023-07-12 20:33] LABS: Bilirubin Negative (Negative); Blood Trace-intact (Negative); Clarity Turbid (Clear); Glucose Negative (Negative); Ketones Trace mg/dL (Negative); Leukocyte Esterase Negative (Negative); Nitrite Negative (Negative); Specific Gravity >= 1.030 (1.005-1.025); Urobilinogen 0.2 mg/dL (Up to 0.2)
[2023-07-12 20:49] LABS: Bacteria Moderate HPF (Negative); Epithelial Cells Negative HPF (Negative); RBC 0-2 HPF (0-2); WBC Negative HPF (0-5)
[2023-07-12 20:50] LABS: C & S Indicated? C&S Done As Ordered; Casts Negative LPF (Negative); Crystals Many Amorphous HPF (Negative); Mucus Negative (Negative)
== END 2023-07-12 18:46 | disposition home or self-care (01) ==
LOC: LBN 18:45
PROVIDERS: Nurse Practitioner; PCP Nurse Practitioner Adult Health; Referring Provider Nurse Practitioner Adult Health; Visit Provider Nurse Practitioner Adult Health
DX: R39.15 Urgency of urination (principal); R82.998 Other abnormal findings in urine
CPT/HCPCS: 81003; 81015; 87086

== ENCOUNTER 2024-07-07 00:14 | Outpatient (CLI) | payer BC, SELFPAY ==
[2024-07-07 00:30] LABS: Abs Immature Grans 0.02 10^3/uL (0.0-0.06); Absolute Basophil Count 0.05 10^3/uL (0.0-0.2); Absolute Eosinophil Count 0.57 10^3/uL (0.0-0.7); Absolute Lymphocyte Count 3.93 10^3/uL (1.2-3.4); Absolute Monocyte Count 0.76 10^3/uL (0.1-0.8); Absolute Neutrophil Count 6.25 10^3/uL (1.2-6.7); Basophils % 0.4 %; Eosinophils % 4.9 %; HCT 42.6 % (36.0-46.0); HGB 13.7 g/dL (11.2-15.7); Immature Grans % 0.2 %; Lymphocytes % 33.9 %; MCH 28.1 pg (27.0-33.0); MCHC 32.2 % (32.0-36.0); MCV 88 fL (80-95); MPV 9.4 fL (8.0-11.0); Monocytes % 6.6 %; Platelet Count 282 10^3/uL (130-400); RBC 4.87 10^6/uL (3.93-5.22); RDW 12.8 % (11.7-14.6); RDW-SD 41.4 fL; WBC 11.58 10^3/uL (4.4-10.8)
[2024-07-07 00:46] LABS: Hemoglobin A1C 5.4 % (<5.7)
[2024-07-07 00:54] LABS: BUN 13 mg/dL (7-18); CREATININE 0.9 mg/dL (0.55-1.02); Calcium 9.1 mg/dL (8.5-10.1); Chloride 105 mmol/L (98-107); Estimated GFR 88.75 (mL/min/1.73m2); Glucose 91 mg/dL (74-106); Potassium 3.9 mmol/L (3.5-5.1); Sodium 142 mmol/L (136-145); TSH (W/Ref FT4) 2.98 uIU/mL (0.36-3.74)
[2024-07-07 01:06] LABS: Calculated LDL 45 mg/dL (<100); Cholesterol 122 mg/dL (<200); HDL Cholesterol 43 mg/dL (40-60); Triglyceride 170 mg/dL (<150)
== END 2024-07-07 00:15 | disposition home or self-care (01) ==
LOC: LBO 00:17
PROVIDERS: PCP Nurse Practitioner; Visit Provider Nurse Practitioner
DX: E66.9 Obesity, unspecified (principal); J45.909 Unspecified asthma, uncomplicated; Z13.220 Encounter for screening for lipoid disorders
CPT/HCPCS: 80048; 80061; 83036; 84443; 85025

== ENCOUNTER 2024-07-11 00:24 | Outpatient (CLI) | payer BC, SELFPAY ==
--- NOTE | 2024-07-11 07:13 | DI.RAD_ITS ---
Exam(s) XR FOOT RT COMPLETE EXAM: XR FOOT RT COMPLETE CLINICAL HISTORY: 3 mos rt foot pain, m79.671,h/o running,dropped heavy object on foot. TECHNIQUE: 2D digital imaging was performed. Three views. COMPARISON: No exams were available for comparison FINDINGS: BONES: No acute fracture is present. No bony destructive lesion is seen. JOINTS: No dislocation present. SOFT TISSUE: Normal. IMPRESSION: Unremarkable radiographs of the right foot. DATA REPOSITORY: RADIATION DOSE DELIVERED:
== END 2024-07-11 00:44 ==
LOC: DI 00:24
PROVIDERS: PCP Nurse Practitioner; Visit Provider Nurse Practitioner
DX: M79.671 Pain in right foot (principal)
CPT/HCPCS: 73630